=== PATIENT | female | born 1950 | race Caucasian/White ===

== ENCOUNTER → 2017-12-10 18:34 | Outpatient (CLI) | payer BC, SELFPAY ==
--- NOTE | 2017-12-10 14:25 | LES_PTH ---
PATIENT: NICKIE TOMLINSON LOC: [facility] U#:[id number] AGE/SX: 74/F ROOM: RE12/10/[address]: Dr. Allen Dominguez MD : 1950 BED: DIS: SPEC #: [id number] RECD: 12/10/17 18:35 STATUS: TALI ARACELI #: [id number] OCTAVIO: 12/10/17 14:[address]: Allen Dominguez DEPT: SURGICAL PATHOLOGY RECD BY: Reed Engel ENTERED: 12/11/17 08:03 SP TYPE: Lesion OTHR DR: Out of Town Doctor Tissues: Skin of face, NOS Procedures: Special Stain Group I Surgery Specimen Level IV GMS Stain (control) HEADER OPERATION: Not noted PRE-OP DIAGNOSIS: Squamous cell CA TISSUE SUBMITTED: Lesion inside mouth, lower left cheek MICROSCOPIC DIAGNOSIS Lesion inside mouth, lower left cheek, biopsy: A piece of squamous mucosa with focal changes suggestive of squamous papilloma with acute and chronic inflammation. Focal superficial bacterial colonization. Special stain for fungi is positive for fungal organisms (yeast and pseudohyphae) in superficial keratin layers consistent with Cait species; matched control is appropriate. CARMEN:cristian 12/14/17 SJ:cristian 08/10/19 COMMENT Case has been reviewed in consultation with Dr. Luis who concurs with the above diagnosis. IDC:AM MICROSCOPIC DESCRIPTION Slides are reviewed. GROSS DESCRIPTION Received is one container labeled with the patient's name and not further designated. The specimen consists of a piece of mosqueda-white soft tissue measuring 0.3 x 0.3 x 0.1 cm. The specimen is totally submitted in one cassette. / CARMEN:cristian 12/11/17 TC:5 CPT: 89890, 09908
--- NOTE | 2017-12-10 14:25 | LES_PTH ---
PATIENT: NICKIE TOMLINSON LOC: [facility] U#:[id number] AGE/SX: 74/F ROOM: RE12/10/[address]: Dr. Allen Dominguez MD : 1950 BED: DIS: SPEC #: [id number] RECD: 12/10/17 18:35 STATUS: TALI ARACELI #: [id number] OCTAVIO: 12/10/17 14:[address]: Allen Dominguez DEPT: SURGICAL PATHOLOGY RECD BY: Reed Engel ENTERED: 12/11/17 08:03 SP TYPE: Lesion OTHR DR: Out of Town Doctor Tissues: Skin of face, NOS Procedures: Special Stain Group I Surgery Specimen Level IV GMS Stain (control) HEADER OPERATION: Not noted PRE-OP DIAGNOSIS: Squamous cell CA TISSUE SUBMITTED: Lesion inside mouth, lower left cheek MICROSCOPIC DIAGNOSIS Lesion inside mouth, lower leg cheek, biopsy: A piece of squamous mucosa with focal changes suggestive of squamous papilloma with acute and chronic inflammation. Focal superficial bacterial colonization. Special stain for fungi is positive for fungal organisms (yeast and pseudohyphae) in superficial keratin layers consistent with Cait species; matched control is appropriate. CARMEN:cristian 12/14/17 COMMENT Case has been reviewed in consultation with Dr. Luis who concurs with the above diagnosis. IDC:AM MICROSCOPIC DESCRIPTION Slides are reviewed. GROSS DESCRIPTION Received is one container labeled with the patient's name and not further designated. The specimen consists of a piece of mosqueda-white soft tissue measuring 0.3 x 0.3 x 0.1 cm. The specimen is totally submitted in one cassette. / CARMEN:cristian 12/11/17 TC:5 CPT: 86195, 22813
== END ==
PROVIDERS: Visit Provider Otolaryngology
DX: K12.1 Other forms of stomatitis (principal)
CPT/HCPCS: 88305; 88312

== ENCOUNTER → 2019-08-09 13:41 | Outpatient (CLI) | payer BC, SELFPAY ==
--- NOTE | 2019-08-09 10:07 | MASS_PTH ---
PATIENT: NICKIE TOMLINSON LOC: [facility] U#:[id number] AGE/SX: 74/F ROOM: RE08/09/[address]: Dr. 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 Acute and chronic inflammation. Negative for malignancy. Special stain for fungi is negative for organisms; matched control is appropriate. See comment. CARMEN:cristian 08/10/19 COMMENT The specimen entirely consists of superficial fragments of tissue. If there is high suspicion of malignancy, rebiopsy is suggested if clinically indicated. Please make reference to previous specimen ([id number]) lesion inside mouth, lower left cheek, biopsy with diagnosis of a piece of squamous mucosa with focal changes suggestive of squamous papilloma with acute and chronic inflammation. Case has been reviewed in consultation with Dr. Luis who concurs with the above diagnosis. IDC:AM MICROSCOPIC DESCRIPTION Slides are reviewed. GROSS DESCRIPTION Received is one container labeled with the patient's name and not further designated. The specimen consists of two irregular fragments of light mosqueda soft tissue that in aggregate measure 0.5 x 0.3 x 0.1 cm. The specimen is totally submitted in one cassette. / AM:cristian 08/09/19 TC: 5 CPT: 30115, 43197
== END ==
PROVIDERS: Referring Provider Otolaryngology; Visit Provider Otolaryngology
DX: Z85.819 Personal history of malignant neoplasm of unspecified site of lip, oral cavity, and pharynx (principal); Z92.3 Personal history of irradiation
CPT/HCPCS: 88305; 88312

== ENCOUNTER 2019-09-02 09:25 | Day surgery (SDC) | payer BC, SELFPAY ==
[2019-09-02] VITALS (9 sets, daily range): BP systolic 97–136; BP diastolic 60–85; PULSE 61–78; RESP 16; TEMP 36.6; O2SAT 93–99; BMI 36.3
--- NOTE | 2019-09-02 | LYMN_PTH ---
PATIENT: NICKIE TOMLINSON [place] [facility] [id number] AGE/SX: 68/F ROOM: RE09/02/[address]: Dr. Allen Dominguez MD : 1950 BED: DIS: 09/02/2019 SPEC #: [id number] RECD: 09/02/19 13:32 STATUS: TALI ARACELI #: [id number] OCTAVIO: 09/02/19 00:[address]: Allen Dominguez DEPT: SURGICAL PATHOLOGY RECD BY: Lexus Branch ENTERED: 09/02/19 13:59 SP TYPE: LYMPH NODE OTHR DR: Dr. Los Davenport MD Tissues: LYMPH NODE BIOPSY Procedures: Special Stain Group II Surgery Specimen Level IV Imprint (control) HEADER OPERATION: Radical neck biopsy/excision lymph node, open deep cervical nodes PRE-OP DIAGNOSIS: Cervical lymphadenopathy TISSUE SUBMITTED: Submental lymph node MICROSCOPIC DIAGNOSIS Submental lymph node, biopsy: Consistent with reactive lymph node. See comment. AM:cristian 09/13/19 COMMENT The specimen is evaluated at the time of touch prep by Dr. Luis. Immediate Evaluation = Polymorphous lymphocytes present. This touch prep evaluation of this case is discussed with Dr. Dominguez on 09/02/19 at 2:18 p.m. Immunohistochemistry ([id number]) supports the above diagnosis. Flow cytometric analysis shows significant immunophenotypic abnormality detected. The complete flow cytometry report can be viewed in patient's EMR. Reference is made to the patient's right tongue mass biopsy ([id number]) in which superficial fragments of squamous papilloma was identified. Case has been reviewed in consultation with Dr. Zuniga who concurs with the above diagnosis. IDC:SJ MICROSCOPIC DESCRIPTION Slides are reviewed. GROSS DESCRIPTION Received fresh for frozen section consultation labeled with the patient's name is a specimen designated submental lymph node. The specimen consists of a 6 mm mosqueda nodule. The specimen is bisected. One bisected half is submitted for flow cytometry analysis. The other half is submitted for permanent sections after district sales representative touch prep smears (four Diff-Quik stains and four pap stains). / AM:cristian 09/02/19 TC:5 CPT: 19166, 32573
--- NOTE | 2019-09-02 | IMM_PTH ---
PATIENT: NICKIE TOMLINSON LOC: [facility] [place] U#:[id number] AGE/SX: 68/F ROOM: RE09/02/[address]: Dr. Allen Dominguez MD : 1950 BED: DIS: 09/02/2019 SPEC #: [id number] RECD: 09/05/19 12:15 STATUS: TALI REQ #: [id number] OCTAVIO: 09/02/19 00:[address]: Allen Dominguez DEPT: IMMUNOHISTOCHEMISTRY RECD BY: Lexus Branch ENTERED: 09/05/19 12:18 SP TYPE: IMMUNO OTHR DR: Dr. Los Davenport MD Tissues: Lymph node of neck, NOS Procedures: BCL-2 (add) CD138 (add) CD15 (add) CD20 (add) CD3 (add) CD30 (add) CD43 (add) CD45 (add) CD5 (add) CD79A (add) KI-67 (add) Pankeratin (initial) PHYSICIAN & [address] [address] SPECIMEN INFORMATION: Tissue Source: Submental lymph node Clinical Info: Cervical lymphadenopathy Specimen Number: [id number] CPT code: 15293, 64664 x11 METHODOLOGY: Deparaffinized sections of prefer/formalin-fixed tissue or PAP/DQ stained slides are incubated with monoclonal/polyclonal antibodies/oligonucleotide probes. Localization is made via biotin free immunoperoxidase method. Appropriate controls are performed and reacted as expected. Results on target cell population are indicated in the following table: RESULTS: ANTIBODY / CLONE RESULT AE1-3 (AE1/AE3/PCK26) negative CD3 (PS1) positive CD5 (SP10) positive CD20 (L26) positive, zonal CD43 (L60) positive CD45 (RP2/18) positive CD79a (11E3) positive, zonal CD138 (B-A38) positive, focal CD15 (MMA) negative CD30 (Tres-H2) negative BCL-2 (bcl-2/100/D5) negative Ki-67 (30-9) positive, low These tests were developed and their performance characteristics determined by [facility]. They may not have been cleared or approved by the U.[place]. Food and Drug Administration. The FDA has determined that such clearance or approval is not necessary. The above immunohistochemical/dualISH markers are ordered and reviewed by the Pathologist. INTERPRETATION: Submental lymph node, biopsy: Consistent with reactive lymph node. No evidence of carcinoma. AM:cristian 09/06/19
[2019-09-02 10:25] LABS: Bedside Glucose 139 mg/dL (70-110)
[2019-09-02] MEDS: Lactated Ringers 1,000 ML 100 ML IV ×2 (10:38→14:14)
--- NOTE | 2019-09-02 13:35 | OP.PCM_ITS ---
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 This is been treated with previous resection and radiation therapy. She has had progressive chronic ulceration of the right floor of mouth however repeat biopsies showed benign papilloma. Subsequently she has developed an enlarged submental lymph node on that side and given her history and suspicious clinical findings biopsy for definitive evaluation of possible recurrent malignancy was advised and she was agreeable to proceed. The risks, alternatives, potential complications, and benefits were discussed at length and any questions answered to the patient and/or caregiver's satisfaction. Witnessed informed consent was obtained in the office, and the patient and/or caregiver was agreeable to proceed. Procedure went as follows: The patient was identified in preoperative holding and brought to the operating room, placed under monitored anesthesia. When appropriate anesthesia was obtained, the right submental neck was prepped and draped in usual sterile fashion. The planned incision site was then injected with 1% lidocaine with 100,000 epinephrine for a total of 1 mL. After allowing for vasoconstriction, a skin incision was then created with a 15 blade scalpel through the skin subcutaneous tissues and platysma over the palpably enlarged node. A firm round enlarged lymph node was then encountered which is approximately 0.5 x 0.5 cm in size but very round with disruption of the normal oblong architecture. This was dissected free of the surrounding tissue and was then sent for pathologic specimen. The wound was then closed deeply with interrupted 3-0 Vicryl sutures closing the space. An interrupted 5-0 M onocryl subcuticular stitch was then placed to close the skin. The patient was then returned to anesthesia, was revived and extubated without complication having tolerated the procedure well. Type of Anesthesia:: General Anesthesiologist: Allen Yates Special Medications: none Specimen's removed: right submental lymph node Drains: none Estimated Blood Loss (mL): 0 mL Fluids Replaced: 200 mL Grafts/Implants Used: none - Complications none - Admit VTE Documentation VTE Present on Admission: No VTE Mechan Device Prophylaxis: None VTE Pharm Prophylaxis ordered?: No Reason prophylaxis not ordered:: Procedure Not Indicated
--- NOTE | 2019-09-02 13:42 | DCINST_ITS ---
- Discharge Diagnoses Current Active Problems: Current Active and Chronic Problems (This Medical Record has been edited. Action required.) Adenopathy, cervical (Acute) History of cancer of floor of mouth (Chronic) You will use the following diet at home:: No restrictions Discharge Activity: Return to Normal Activity Call your doctor if your incision/area has: Increased Pain/ Swelling, Foul Smelling Discharge Call your doctor if you observe: Fever of 101 or Higher, Uncontrolled pain Allergies/Adverse Reactions: Allergies celery Allergy (Verified 08/31/19 14:08) Other GET MIGRAINE, EVEN FROM JUST SMELLING IT Medications to take at Discharge Levothyroxine [Synthroid] 88 mcg PO DAILY 08/31/19 Losartan Potassium [Cozaar] 25 mg PO DAILY 08/31/19 Pravastatin [Pravachol] 20 mg PO QHS 08/31/19 RX: Aspirin E.C. [Ecotrin] 81 mg PO DAILY@0800 08/31/19 RX: Biotin 1 mg PO DAILY 08/31/19 RX: Lansoprazole 15 mg PO DAILY 08/31/19 RX: Metformin HCl 1,000 mg PO BID 08/31/19 Sitagliptin Phosphate [Januvia] 50 mg PO DAILY 08/31/19 Primary Care Physician: Los Davenport MD [Primary Care Provider] - Test Results: Test results from this visit will be discussed in further detail at your follow- up appointment, if applicable. Please Follow Up With: Allen Dominguez MD When: 2 weeks
== END 2019-09-02 14:59 | disposition home or self-care (01) ==
LOC: SDC 09:26 → AC 09:29
PROVIDERS: PCP Family Medicine; Referring Provider Otolaryngology; Visit Provider Otolaryngology
PROC: 07T10ZZ Resection of Right Neck Lymphatic, Open Approach (ICD-10-PCS; CPT 38724; principal; 2019-09-02 11:00)
DX: R59.0 Localized enlarged lymph nodes (principal); T66.XXXA Radiation sickness, unspecified, initial encounter; K21.9 Gastro-esophageal reflux disease without esophagitis; E78.00 Pure hypercholesterolemia, unspecified; E11.9 Type 2 diabetes mellitus without complications; E06.9 Thyroiditis, unspecified; I10 Essential (primary) hypertension; Z92.3 Personal history of irradiation; Z79.82 Long term (current) use of aspirin; Z86.718 Personal history of other venous thrombosis and embolism; Z85.818 Personal history of malignant neoplasm of other sites of lip, oral cavity, and pharynx; Z79.84 Long term (current) use of oral hypoglycemic drugs; Z79.899 Other long term (current) drug therapy; Z87.891 Personal history of nicotine dependence
CPT/HCPCS: 38500; 82962; 88305; 88313; 88341; 88342; J7120; J2405

== ENCOUNTER 2023-07-28 17:48 | Emergency (ER) | payer MEDICARE, SELFPAY ==
[2023-07-28 17:50] VITALS: BP 167/87; PULSE 78; RESP 16; TEMP 36.6; O2SAT 95
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
--- OUTSIDE RECORDS SUMMARY | 2023-07-28 19:15 | XMS RPT_ITS | CCD ---
Author Name Unknown Address [address] [place] [address] Organization [facility] Care Team Providers Care Nursing Unit Clerk Name Role Phone Los Davenport MD Primary Care Provider Kira RN, Mary Unavailable Unavailable Los Davenport MD Unavailable Lev Valle MD Unavailable William Alcaraz MD Unavailable Kamar RN, Carie Unavailable Los Davenport MD Primary Care Provider Los Davenport MD Unavailable Lev Valle MD Unavailable William Alcaraz MD Unavailable Kamar RN, Carie Unavailable Los Davenport MD Primary Care Provider Los Davenport MD Unavailable Kamar RN, Carie Unavailable Los Davenport MD Primary Care Provider Los Davenport MD Unavailable Lev Valle MD Unavailable William Alcaraz MD Unavailable Kamar ARORA, Carie Unavailable Kamar ARORA, Carie Unavailable LOS DAVENPORT Referring Unavailable LOS DAVENPORT Primary Care Unavailable LOS DAVENPORT Primary Care Unavailable LEV VALLE Attending Unavailable LOS DAVENPORT Primary Care Unavailable LOS DAVENPORT Attending Unavailable LOS DAVENPORT Referring Unavailable LOS DAVENPORT Primary Care Unavailable TESTGILES WEBB Referring Unavailable JANENE, LOS Escobar Primary Care Unavailable TESTRASUGEY, GILES Referring Unavailable JANENE, LOS Escobar Primary Care Unavailable TESTJON, GILES Attending Unavailable TESTRASUGEY, GILES Referring Unavailable JANENE, LOS Escobar Primary Care Unavailable JANENE, LOS Escobar Primary Care Unavailable JANENE, LOS Escobar Attending Unavailable LOS DAVENPORT Primary Care Unavailable SCHALEV DENNY Attending Unavailable SCHALEV DENNY Referring Unavailable JANENE, LOS Escobar Referring Unavailable JANENE, LOS Escobar Primary Care Unavailable JANENE, LOS Escobar Primary Care Unavailable JANENE, LOS Escobar Attending Unavailable JANENELOS Primary Care Unavailable JANENE, LOS Escobar Referring Unavailable JANENE, LOS Escobar Attending Unavailable JANENE, LOS Escobar Primary Care Unavailable Allergies Allergy Classification Reported Allergen(s) Allergy Type Date of Onset Reaction(s) Facility (20 sources) celery allergenic extract; Translations: [CELERY] Drug Allergy 09-02-2010 Other: See Comments [facility] (20 sources) Lisinopril; Translations: [LISINOPRIL] Drug Allergy 12-27-2014 Cough [facility] Work Phone: Medications Current Medications Medication Drug Class(es) Dates Sig (Normalized) Sig (Original) levothyroxine sodium 0.1 mg oral tablet (20 sources) l-Thyroxine Start: 07-02-2023 End: 07-01-2024 take 1 tablet by mouth once daily for thyroid dysfunction levothyroxine (LEVOXYL) 100 mcg tablet Indications: Hypothyroidism, unspecified type Take 1 tablet by mouth once daily. Take on empty stomach. For Thyroid 30 tablet 11 07/02/2023 07/01/2024 Active Completed/Discontinued Medications Medication Drug Class(es) Dates Sig (Normalized) Sig (Original) B6/folic/B12/coffee /phosphatid (NEURIVA PLUS ORAL) (20 sources) Start: 06-04-2021 take 1 tablet by mouth once daily B6/folic/B12/coffe e/phosphatid (NEURIVA PLUS ORAL) Take 1 tablet by mouth once daily. 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, face and neck; Translations: [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, face and neck] Onset: 01-17-2021 01-17-2021 Chronic Cancer of head and neck (20 sources) Malignant tumor of oral cavity ; Translations: [Malignant neoplasm of mouth, unspecified] Onset: 01-23-2021 01-29-2021 Chronic Chronic kidney disease (10 sources) Chronic kidney disease stage 3; Translations: [Stage 3 chronic kidney disease] Onset: 10-31-2020 01-29-2021 Chronic Chronic kidney disease (1 source) Chronic kidney disease; Translations: [Hypertensive kidney disease with stage 3 chronic kidney disease, unspecified whether stage 3a or 3b CKD (HCC)] Onset: 06-06-2021 Chronic ulcer of skin (3 sources) Ulcer of lower extremity; Translations: [Non-pressure chronic ulcer of unspecified part of right lower leg with fat layer exposed] Onset: 06-06-2021 06-06-2021 Chronic Diabetes mellitus with complications (20 sources) Type 2 diabetes mellitus; Translations: [Type 2 diabetes mellitus with diabetic chronic kidney disease] Onset: 06-24-2016 06-06-2021 Chronic Diabetes mellitus without complication (1 source) Diabetes mellitus without complication; Translations: [Type 2 diabetes mellitus with stage 3 chronic kidney disease, without long-term current use of insulin, unspecified whether stage 3a or 3b CKD (HCC)] Onset: 06-06-2021 Disorders of lipid metabolism (20 sources) Hyperlipidemia; Translations: [Hyperlipidemia, unspecified] Onset: 04-26-2012 05-23-2015 Chronic Esophageal disorders (20 sources) Gastroesophageal reflux disease; Translations: [Gastro-esophageal reflux disease without esophagitis] Onset: 06-04-2009 01-29-2021 Chronic Essential hypertension (20 sources) Essential hypertension; Translations: [Essential (primary) hypertension] Onset: 01-29-2021 01-29-2021 Chronic Hypertension with complications and secondary hypertension (20 sources) Chronic kidney disease stage 3 due to hypertension; Translations: [Hypertensive chronic kidney disease with stage 1 through stage 4 chronic kidney disease, or unspecified chronic kidney disease] Onset: 06-06-2021 06-06-2021 Chronic Nutritional deficiencies (3 sources) Deficiency of macronutrients; Translations: [Unspecified severe protein-calorie malnutrition] Onset: 01-23-2021 01-29-2021 Chronic Osteoarthritis (20 sources) Localized, primary osteoarthritis; Translations: [Unilateral primary osteoarthritis, unspecified knee] Onset: 04-09-2010 04-09-2010 Chronic Other circulatory disease (1 source) Abnormal peripheral pulse; Translations: [Other specified symptoms and signs involving the circulatory and respiratory systems] Episodic Other lower respiratory disease (2 sources) Cough; Translations: [Cough, unspecified type] Episodic Other nutritional; endocrine; and metabolic disorders (20 sources) Obese class I; Translations: [Obesity, unspecified] Onset: 01-23-2021 01-29-2021 Chronic Other screening for suspected conditions (not mental disorders or infectious disease) (1 source) Patient encounter status; Translations: [Encounter for screening mammogram for malignant neoplasm of breast] Episodic Other skin disorders (1 source) Callosity; Translations: [Corns and callosities] Episodic Residual codes; unclassified (19 sources) Desaturation of blood; Translations: [Idiopathic sleep related nonobstructive alveolar hypoventilation] Onset: 01-29-2021 01-29-2021 Chronic Secondary malignancies (20 sources) Metastasis to head and neck lymph node; Translations: [Secondary and unspecified malignant neoplasm of lymph nodes of head, face and neck] Onset: 06-14-2004 05-23-2010 Chronic Thyroid disorders (20 sources) Hypothyroidism; Translations: [Hypothyroidism, unspecified] Onset: 09-09-2006 Chronic Unclassified (17 sources) Disorder of rotator cuff; Translations: [Rotator cuff syndrome of left shoulder and allied disorders] Onset: 06-29-2015 06-29-2015 Viral infection (1 source) Disease caused by 2019-nCoV; Translations: [COVID-19] Episodic Past or Other Problems Problem Classification Problem Date Documented Da te Episodic/Chronic Cancer of head and neck (20 sources) History of malignant neoplasm of tongue; Translations: [Personal history of malignant neoplasm of tongue] Onset: 06-14-2004 01-17-2021 Episodic Other connective tissue disease (8 sources) Disorder of rotator cuff; Translations: [Rotator cuff syndrome of left shoulder and allied disorders] Onset: 06-29-2015 06-29-2015 Episodic Other gastrointestinal disorders (20 sources) Oropharyngeal dysphagia; Translations: [Dysphagia, oropharyngeal phase] Onset: 02-05-2021 02-05-2021 Episodic Other non-traumatic joint disorders (9 sources) Pain in unspecified knee; Translations: [Pain in joint, lower leg] Onset: 02-18-2011 02-18-2011 Episodic Other skin disorders (3 sources) Mass of neck; Translations: [Localized swelling, mass and lump, neck] Onset: 01-17-2021 01-17-2021 Episodic Urinary tract infections (2 sources) Acute cystitis; Translations: [Acute cystitis with hematuria] Onset: 09-30-2022 Episodic Results Test Name Value Interpretation Reference Range Facil ity Vital Signs Date Time Vital Sign Value Performing Clinician Faci lity 07-01-2023 16:03-0500 Body weight 84.37 kg Los Davenport MD Work Phone: [facility] 07-01-2023 16:03-0500 Diastolic blood pressure 82 mm[Hg] Los Davenport MD Work Phone: [facility] 07-01-2023 16:03-0500 Heart rate 84 /min Los Davenport MD Work Phone: [facility] 07-01-2023 16:03-0500 Systolic blood pressure 124 mm[Hg] Los Davenport MD Work Phone: [facility] 12-31-2022 10:15-0400 Body weight 84.82 kg Los Davenport MD Work Phone: [facility] 12-31-2022 10:15-0400 Diastolic blood pressure 74 mm[Hg] Los Davenport MD Work Phone: [facility] 12-31-2022 10:15-0400 Heart rate 93 /min Los Davenport MD Work Phone: [facility] 12-31-2022 10:15-0400 Systolic blood pressure 112 mm[Hg] Los Davenport MD Work Phone: [facility] 11-21-2022 08:40-0400 Body height 160 cm Los Davenport MD Work Phone: [facility] 11-21-2022 08:40-0400 Body temperature 98.71 [degF] Los Davenport MD Work Phone: [facility] 11-21-2022 08:40-0400 Body weight 83.92 kg Los Davenport MD Work Phone: [facility] 11-21-2022 08:40-0400 Diastolic blood pressure 76 mm[Hg] Los Davenport MD Work Phone: [facility] 11-21-2022 08:40-0400 Heart rate 90 /min Los Davenport MD Work Phone: [facility] 11-21-2022 08:40-0400 SaO2% (BldA) [Mass fraction] 97 % Los Davenport MD Work Phone: [facility] 11-21-2022 08:40-0400 Systolic blood pressure 122 mm[Hg] Los Davenport MD Work Phone: [facility] 08-04-2022 15:26-0500 Body height 160 cm Los Davenport MD Work Phone: [facility] 08-04-2022 15:26-0500 Body weight 86.18 kg Los Davenport MD Work Phone: [facility] 08-04-2022 15:26-0500 Diastolic blood pressure 68 mm[Hg] Los Davenport MD Work Phone: [facility] 08-04-2022 15:26-0500 Heart rate 90 /min Los Davenport MD Work Phone: [facility] 08-04-2022 15:26-0500 SaO2% (BldA) [Mass fraction] 98 % Los Davenport MD Work Phone: [facility] 08-04-2022 15:26-0500 Systolic blood pressure 114 mm[Hg] Los Davenport MD Work Phone: [facility] 06-18-2022 09:32-0500 Body weight 86.18 kg Los Davenport MD Work Phone: [facility] 06-18-2022 09:32-0500 Diastolic blood pressure 80 mm[Hg] Los Davenport MD Work Phone: [facility] 06-18-2022 09:32-0500 Heart rate 79 /min Los Davenport MD Work Phone: [facility] 06-18-2022 09:32-0500 Respiratory rate 20 /min Los Davenport MD Work Phone: [facility] 06-18-2022 09:32-0500 SaO2% (BldA) [Mass fraction] 96 % Los Davenport MD Work Phone: [facility] 06-18-2022 09:32-0500 Systolic blood pressure 138 mm[Hg] Los Davenport MD Work Phone: [facility] 12-09-2021 10:41-0400 Body weight 82.56 kg Los Davenport MD Work Phone: [facility] 12-09-2021 10:41-0400 Diastolic blood pressure 78 mm[Hg] Los Davenport MD Work Phone: [facility] 12-09-2021 10:41-0400 Heart rate 76 /min Los Davenport MD Work Phone: [facility] 12-09-2021 10:41-0400 Systolic blood pressure 134 mm[Hg] Los Davenport MD Work Phone: [facility] Encounters Encounter Date Encounter Type Care Provider Facility Start: 07-02-2023 Telephone encounter Los Davenport MD Work Phone: [facility] Procedures Date Procedure Procedure Detail Performing Clinician Start: 08-04-2022 Urnls dip stick/tabl et rgnt auto w/o microscopy Los Davenport MD Work Phone: Start: 12-09-2021 Adult depression screening assessment Los Davenport MD Work Phone: Start: 11-14-2020 Colonoscopy Los Mon MD Work Phone: Start: 08-06-2020 Mammography Los Mon MD Work Phone: Start: 02-19-2017 Adult depression screening assessment Los Davenport MD Work Phone: Start: 06-11-2010 H/O: artificial joint Knee chin nt replacement by other means Los Davenport MD Work Phone: History of radiation therapy History of radiation therapy Lev Valle MD Work Phone: Plan of Treatment Date Care Activity Detail Author Start: 11-14-2030 Colonoscopy COLONOSCOPY [facility] Start: 11-14-2030 COLORECTAL CANCER SCREENING COLORECTAL CANCER SCREENING [facility] Start: 07-23-2027 Urine microalbumin profile [facility] Start: 07-01-2024 Annual PCP Team [employer] suzanne Disease Visit Annual PCP Team Chronic Disease Visit [facility] Start: 06-23-2024 Hemoglobin/Hematocrit Hemoglobin/Hem atocrit [facility] Start: 06-23-2024 Hepatitis B screening Urine Al bumin:Creatinine Ratio [facility] Start: 06-23-2024 Hepatitis B surface antibody level LDL Cholesterol [facility] Start: 06-23-2024 Serum Creatinine Serum Creatinine Cl [facility] Start: 06-16-2024 Hepatitis C antibody , confirmatory test Dilated Retinal Exam [facility] Start: 01-24-2024 Influenza vaccination Influenza Vacc ine (#1) [facility] Immunizations Immunization Date Immunization Notes Care Provider Parker mock 06-16-2022 COVID-19 booster vac cine, age 12+ yr, bivalent (MODERNA) Los Davenport MD Work Phone: [facility] 10-24-2020 COVID-19 vaccine, fu ll dose (MODERNA) Los Davenport MD Work Phone: [facility] 09-26-2020 COVID-19 vaccine, fu ll dose (MODERNA) Los Davenport MD Work Phone: [facility] 07-02-2018 pneumococcal polysaccharide vaccine, 23 valent Los Davenport MD Work Phone: [facility] 07-02-2018 influenza virus vacc ine, unspecified formulation Los Davenport MD Work Phone: [facility] 07-23-2017 tetanus toxoid, redu adonay diphtheria toxoid, and acellular pertussis vaccine, adsorbed Los Davenport MD Work Phone: [facility] 10-08-2015 pneumococcal conjuga te vaccine, 13 valpeter Davenport MD Work Phone: [facility] 08-09-2012 pneumococcal polysaccharide vaccine, 23 valpeter Davenport MD Work Phone: [facility] 04-01-2007 tetanus and diphther ia toxoids, not adsorbed, for adult use Los Davenport MD Work Phone: [facility] Payers Date Payer Category Payer Medicare A[employer] MEDICARE A ETNA MEDICARE PPO [id number] 2021-Present [phone] [address] [place] [address] PPO [id number] 2021 Medicare AETNA MEDICARE A ETNA MEDICARE PPO [id number] 2021-Present [phone] [address] [place] [address] PPO [id number] 2021 Medicare [id number] Social History Date Type Detail Facility Start: [facility] End: 06-14-1988 History of tobacco use Current smoker [facility] End: 06-14-1988 History of tobacco use Cigarette Smoker [facility] Start: 08-26-2021 End: 07-01-2023 Alcohol intake Current non-drinker of alcohol (finding) [facility] Start: 1950 Sex Assigned At Not on file C [facility] Start: 11-22-2021 End: 03-17-2022 Exposure to SARS-CoV-2 (event) Not sure [facility] Start: 03-17-2022 End: 12-25-2022 Cigarettes smoked current (pack per day) - Reported 1 [facility] Work Phone: Start: 03-17-2022 Tobacco use and exposure Smokeless tobacco non-user [facility] Start: 12-25-2022 End: 12-31-2022 Tobacco use panel [facility] Work Phone: Adult Depression Screening Assessment 0 [facility] Work Phone: Medical Equipment Procedure Code Equipment Code Equipment Original Text Equipment Identifier Dates Dressing Bovine Collagen Glycosaminoglycan Polysiloxane 5x4in Biological - [id number] Start: 01-22-2021 Supervisor Capacitor Processing [place] 3.5m m Anastomosis Sterile Microvascular Disposable - [id number] Start: 01-22-2021 Plate Titanium 2 0mm Bone Jalen Reconstruction Mandible - [id number] Start: 01-22-2021 Screw Leibinger [place] 2 2mm Titanium 12mm Bone Lock Cross Pin Head - [id number] Start: 01-22-2021 Screw Leibinger [place] 2 2mm Titanium 6mm Bone Lock Cross Pin Head - [id number] Start: 01-22-2021 Tube Shiley 10.8 mm 6.4mm 6 76mm Tracheostomy Cuff Low Pressure Fenestrate - [id number] Start: 01-22-2021 Start: 12-05-2020 Clinical Notes 06-29-2015 to 07-02-2023 Telephone Encounter - Vera Wilson Ma - 07/02/2023 11:31 AM ESTTelephone Encounter - Los Davenport MD - 07/02/2023 9:21 AM Los Rodriguez MD - 07/01/2023 4:01 PM ESTPatient Instructions Note Date & Type Note Facility 07-02-2023 Miscellaneous Notes Pt notified of lab results and follow up Thyroid is a little low. Change levoxyl to 100 mcg a day . Recheck tsh in six weeks. documented in this encounter [facility] 07-01-2023 Note HNO ID: [id number] Author: [place], Los J, MD Service: ? Author Type: Physician Type: Progress Notes Filed: 07/01/2023 4:41 PM Note Text: Patient presents with: 6 Month Exam HPI: Patient presents today for office visit for follow up. DM: Reports overall feeling well. Medication side effects: No. Home sugar check frequency/results:once daily Hypoglycemic spells: No. Watching diet: Yes. Unexpected weight loss: No. Polyuria, polydipsia: No. Vision Changes: No. Foot lesions or numbness or pain: No. BP is ok. No chest pain No shortness of breath. Heartburn is doing well. Has followed closely with ENT. Was to follow up in two to three weeks if her tongue sore had not healed. But it is healed up now. Thyroid is stable. Component Latest Ref Rng AND Units 06/23/2023 WBC 3.70 - 11.00 k/uL 5.30 RBC 3.90 - 5.20 m/uL 4.86 Hemoglobin 11.5 - 15.5 g/dL 14.0 Hematocrit 36.0 - 46.0 % 43.2 MCV 80.0 - 100.0 fL 88.9 MCH 26.0 - 34.0 pg 28.8 MCHC 30.5 - 36.0 g/dL 32.4 RDW-CV 11.5 - 15.0 % 13.0 Platelet Count 150 - 400 k/uL 216 MPV 9.0 - 12.7 fL 10.5 Neut% % 44.8 Abs Neut (ANC) 1.45 - 7.50 k/uL 2.38 Lymph% % 28.9 Abs Lymph 1.00 - 4.00 k/uL 1.53 Galax% % 14.0 Abs Galax <0.87 k/uL 0.74 Eosin% % 11.3 Abs Eosin <0.46 k/uL 0.60 (H) Baso% % 0.8 Abs Baso <0.11 k/uL 0.04 Immature Gran % % 0.2 IMMATURE GRANS (ABS) <0.10 k/uL <0.03 NRBC /100 WBC 0.0 Absolute nRBC <0.01 k/uL <0.01 DTYPE Auto Protein, Total 6.3 - 8.0 g/dL 7.0 Albumin 3.9 - 4.9 g/dL 4.3 Calcium 8.5 - 10.2 mg/dL 9.7 Bilirubin, Total 0.2 - 1.3 mg/dL 0.2 Alkaline Phosphatase 34 - 123 U/L 74 AST 13 - 35 U/L 22 ALT 7 - 38 U/L 15 Glucose 74 - 99 mg/dL 157 (H) BUN 7 - 21 mg/dL 20 Creatinine 0.58 - 0.96 mg/dL 1.15 (H) Sodium 136 - 144 mmol/L 140 Potassium 3.7 - 5.1 mmol/L 4.8 Chloride 97 - 105 mmol/L 99 CO2 22 - 30 mmol/L 30 Anion Gap 9 - 18 mmol/L 11 eGFR >=60 mL/min/1.73mA? 50 (L) Cholesterol, Total <200 mg/dL 162 Triglyceride <150 mg/dL 121 HDL Cholesterol >39 mg/dL 64 Non HDL Cholesterol <130 mg/dL 98 Fasting Time hrs 12 VLDL Cholesterol <30 mg/dL 24 TC:HDL Ratio <5.10 2.53 LDL Cholesterol <100 mg/dL 74 LDL:HDL Ratio <2.54 1.16 Creatinine, Ur Random (UCRR) 20.0 - 300.0 mg/dL 60.3 Albumin, Urine Random mg/L <12.0 Albumin/Creat Ratio <30 mg/g <20 Hemoglobin A1C 4.3 - 5.6 % 6.7 (H) Estimated Average Glucose mg/dL 146 See last hpi, copied and pasted: HTN: BP is stable. Tolerating medications. No chest pain or shortness of breath No dizziness or headaches No edema HLD: No myalgias. HYPOTHYROID: TSH level good. DM: A1c 7.0 stable on Metformin 500 mg twice a day and Linagliptin 5 mg once daily. Watches diet. Checking glucose daily. Has had a couple of lows but hadn't been eating when happened. GERD: States that reflux all the time. Buying OTC. Takes at night for best results. A lot of it depends on the food she eats. Increased stress with Man and heart issues. Cough improved with allergy med and mucinex max that she is using. Sees podiatry and ENT. Both are doing well. Is getting her bunion done. Renal function is stable. MEDICATIONS: Current Outpatient Medications Medication Sig levothyroxine (LEVOXYL) 88 mcg tablet Take 1 tablet by mouth once daily. Take on empty stomach. For Thyroid metFORMIN (GLUCOPHAGE) 500 mg tablet Take 1 tablet by mouth twice daily with meals. triamterene-hydroCHLOROthiazide (MAXZIDE) 75-50 mg per tablet Take 1 tablet by mouth once daily. losartan (COZAAR) 25 mg tablet Take 1 tablet by mouth once daily. pravastatin (PRAVACHOL) 20 mg tablet Take 1 tablet by mouth daily at bedtime. linaGLIPtin (TRADJENTA) 5 mg tab Take 1 tablet by mouth once daily. B6/folic/B12/coffee/phosphatid (NEURIVA PLUS ORAL) Take 1 tablet by mouth once daily. blood sugar diagnostic (BLOOD GLUCOSE TEST) test strip One Touch Test strips Test blood sugar(s) 1 times daily. Dx: E11.9 Insulin:No blood sugar diagnostic (ACCU-CHEK ADRIANA PLUS TEST STRP) test strip Test blood sugar(s) 1 times daily. Dx: E11.9. Insulin: No Lancets (ACCU-CHEK SOFTCLIX LANCETS) lancets Test blood sugar(s) 1 times daily. Dx: Type 2 DM - Controlled E11.9 Insulin: No lansoprazole (PREVACID) 15 mg capsule Take 1 capsule by mouth daily before breakfast. 1/2 hr before meal. Biotin 1 mg ORAL Tab Take 1 tablet by mouth once daily. benzonatate (TESSALON PERLES) 100 mg capsule Take 1 capsule by mouth three times daily as needed for cough. No current facility-administered medications for this visit. ALLERGIES: ALLERGIES Allergen Reactions Celery Other: See Comments Migraine Lisinopril Cough PAST MEDICAL HISTORY Diagnosis Date Diabetes mellitus, type 2 ([facility]) 2011 Diverticulosis of colon (without mention of hemorrhage) DVT (deep venous thrombosis) ([facility]) 2001 bilateral leg DVT during chemo/radiation GERD (gastroesophageal reflux disease) Hx ulcer (more content not included)... [facility] 07-01-2023 History of Present illness Narrative Patient presents with: 6 Month Exam HPI: Patient presents today for office visit for follow up. DM: Reports overall feeling well. Medication side effects: No. Home sugar check frequency/results:once daily Hypoglycemic spells: No. Watching diet: Yes. Unexpected weight loss: No. Polyuria, polydipsia: No. Vision Changes: No. Foot lesions or numbness or pain: No. BP is ok. No chest pain No shortness of breath. Heartburn is doing well. Has followed closely with ENT. Was to follow up in two to three weeks if her tongue sore had not healed. But it is healed up now. Thyroid is stable. Component Latest Ref Rng & Units 06/23/2023 WBC 3.70 - 11.00 k/uL 5.30 RBC 3.90 - 5.20 m/uL 4.86 Hemoglobin 11.5 - 15.5 g/dL 14.0 Hematocrit 36.0 - 46.0 % 43.2 MCV 80.0 - 100.0 fL 88.9 MCH 26.0 - 34.0 pg 28.8 MCHC 30.5 - 36.0 g/dL 32.4 RDW-CV 11.5 - 15.0 % 13.0 Platelet Count 150 - 400 k/uL 216 MPV 9.0 - 12.7 fL 10.5 Neut% % 44.8 Abs Neut (ANC) 1.45 - 7.50 k/uL 2.38 Lymph% % 28.9 Abs Lymph 1.00 - 4.00 k/uL 1.53 Galax% % 14.0 Abs [place] <0.87 k/uL 0.74 Eosin% % 11.3 Abs Eosin <0.46 k/uL 0.60 (H) Baso% % 0.8 Abs Baso <0.11 k/uL 0.04 Immature Gran % % 0.2 IMMATURE GRANS (ABS) <0.10 k/uL <0.03 NRBC /100 WBC 0.0 Absolute nRBC <0.01 k/uL <0.01 DTYPE Auto Protein, Total 6.3 - 8.0 g/dL 7.0 Albumin 3.9 - 4.9 g/dL 4.3 Calcium 8.5 - 10.2 mg/dL 9.7 Bilirubin, Total 0.2 - 1.3 mg/dL 0.2 Alkaline Phosphatase 34 - 123 U/L 74 AST 13 - 35 U/L 22 ALT 7 - 38 U/L 15 Glucose 74 - 99 mg/dL 157 (H) BUN 7 - 21 mg/dL 20 Creatinine 0.58 - 0.96 mg/dL 1.15 (H) Sodium 136 - 144 mmol/L 140 Potassium 3.7 - 5.1 mmol/L 4.8 Chloride 97 - 105 mmol/L 99 CO2 22 - 30 mmol/L 30 Anion Gap 9 - 18 mmol/L 11 eGFR >=60 mL/min/1.73m 50 (L) Cholesterol, Total <200 mg/dL 162 Triglyceride <150 mg/dL 121 HDL Cholesterol >39 mg/dL 64 Non HDL Cholesterol <130 mg/dL 98 Fasting Time hrs 12 VLDL Cholesterol <30 mg/dL 24 TC:HDL Ratio <5.10 2.53 LDL Cholesterol <100 mg/dL 74 LDL:HDL Ratio <2.54 1.16 Creatinine, Ur Random (UCRR) 20.0 - 300.0 mg/dL 60.3 Albumin, Urine Random mg/L <12.0 Albumin/Creat Ratio <30 mg/g <20 Hemoglobin A1C 4.3 - 5.6 % 6.7 (H) Estimated Average Glucose mg/dL 146 See last hpi, copied and pasted: HTN: BP is stable. Tolerating medications. No chest pain or shortness of breath No dizziness or headaches No edema HLD: No myalgias. HYPOTHYROID: TSH level good. DM: A1c 7.0 stable on Metformin 500 mg twice a day and Linagliptin 5 mg once daily. Watches diet. Checking glucose daily. Has had a couple of lows but hadn't been eating when happened. GERD: States that reflux all the time. Buying OTC. Takes at night for best results. A lot of it depends on the food she eats. Increased stress with Man and heart issues. Cough improved with allergy med and mucinex max that she is using. Sees podiatry and ENT. Both are doing well. Is getting her bunion done. Renal function is stable. MEDICATIONS: Current Outpatient Medications Medication Sig levothyroxine (LEVOXYL) 88 mcg tablet Take 1 tablet by mouth once daily. Take on empty stomach. For Thyroid metFORMIN (GLUCOPHAGE) 500 mg tablet Take 1 tablet by mouth twice daily with meals. triamterene-hydroCHLOROthiazide (MAXZIDE) 75-50 mg per tablet Take 1 tablet by mouth once daily. losartan (COZAAR) 25 mg tablet Take 1 tablet by mouth once daily. pravastatin (PRAVACHOL) 20 mg tablet Take 1 tablet by mouth daily at bedtime. linaGLIPtin (TRADJENTA) 5 mg tab Take 1 tablet by mouth once daily. B6/folic/B12/coffee/phosphatid (NEURIVA PLUS ORAL) Take 1 tablet by mouth once daily. blood sugar diagnostic (BLOOD GLUCOSE TEST) test strip One Touch Test strips Test blood sugar(s) 1 times daily. Dx: E11.9 Insulin:No blood sugar diagnostic (ACCU-CHEK ADRIANA PLUS TEST STRP) test strip Test blood sugar(s) 1 times daily. Dx: E11.9. Insulin: No Lancets (ACCU-CHEK SOFTCLIX LANCETS) lancets Test blood sugar(s) 1 times daily. Dx: Type 2 DM - Controlled E11.9 Insulin: No lansoprazole (PREVACID) 15 mg capsule Take 1 capsule by mouth daily before breakfast. 1/2 hr before meal. Biotin 1 mg ORAL Tab Take 1 tablet by mouth once daily. benzonatate (TESSALON PERLES) 100 mg capsule Take 1 capsule by mouth three times daily as needed for cough. No current facility-administered medications for this visit. 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, face, and neck 2002 PAST SURGICAL HISTORY Procedure Laterality Date COLONOSCOPY FLX DX W/COLLJ SPEC WHEN PFRMD 06/26/2009 repeat due 2019 JOINT REPLACEMENT HX PAST SURGICAL HISTORY OF 08/09/2001 Direct laryngoscopy with multiple right base of tongue biopsies PAST SURGICAL HISTORY OF 02/07/2002 Right complete cervical lymphadenectomy PAST SURGICAL HISTORY OF ~ hysterectomy, non-ca PAST SURGICAL HISTORY OF knee surgery left x 3 TOTAL KNEE REPLACEMENT 09/2010, 05/2010 left and right TRACHEOSTOMY PLANNED SEPARATE PROCEDURE 2020 VAGINAL HYSTERECTOMY FAMILY HISTORY Problem Relation Age of Onset Emphysema Father Hypertension Mother Cancer Paternal Aunt Squamous cell. multiple relatives. Arthritis Sister Social History Tobacco Use Smoking status: Former Packs/day: 1.00 Years: 20.00 Additional pack years: 0.00 Total pack years: 20.00 Types: Cigarettes Quit date: 06/14/1988 Years since quittin.0 Smokeless tobacco: Never Vaping Use Vaping Use: Never used Substance Use Topics Alcohol use: No Drug use: No Reviewed current medications, allergies, past medical history, surgical history, family history and social history today. REVIEW OF SYSTEMS All other reviewed and negative other than HPI. HEALTH MAINTENANCE: Reviewed health maintenance issues today and recommended the following in detail. RSV Vaccine(1 - 1-dose 60+ series) Never done VITALS: BP 124/82 Pulse 84 Wt 84.4 kg (186 lb) BMI 32.95 kg/m Last 4 Encounter Wt Readings: Date: Wt: 12/31/2022 84.8 kg (187 lb) 11/21/2022 83.9 kg (185 lb) 08/04/2022 86.2 kg (190 lb) 06/18/2022 86.2 kg (190 lb) PHYSICAL EXAMINATION: General appearance: Well appearing, alert, in no acute distress, well-hydrated, well nourished. Skin: Skin color, texture, turgor normal, no suspicious rashes or lesions Head: Normocephalic, no masses, lesions, tenderness or abnormalities Neck: Supple, no adenopathy; thyroid symmetric, normal size, no bruits Lungs: Lungs clear to auscultation. No wheezing, rhonchi, rales Heart: RRR without murmur, gallop, or rubs. No ectopy Abdomen: Normal abdominal exam, Abdomen soft, non-tender. Bowel sounds normal. No masses, organomegaly Extremities: No deformities, edema, skin discoloration, clubbing or cyanosis. Good capillary refill. Musculoskeletal: No joint swelling, deformity, or tenderness ASSESSMENT/PLAN: 1. Essential hypertension - ICD9: 401.9, ICD10: I10 (primary diagnosis) - Controlled - Continue current medications 2. Hypothyroidism, unspecified type - ICD9: 244.9, ICD10: E03.9 - LEVOTHYROXINE 88 MCG TABLET - TSH BLD 3. Hyperlipidemia with target LDL less than 100 - ICD9: 272.4, ICD10: E78.5 - PRAVASTATIN 20 MG TABLET 4. Hypertensive kidney disease with stage 3 chronic kidney disease, unspecified whether stage 3a or 3b CKD (HCC) - ICD9: 403.90, 585.3, ICD10: I12.9, N18.30 - Controlled - Continue current medications - BASIC METABOLIC PNL - VITAMIN D 25 HYDROXY 5. Type 2 diabetes mellitus with stage 3 chronic kidney disease, without long-term current use of insulin, unspecified whether stage 3a or 3b CKD (HCC) - ICD9: 250.40, 585.3, ICD10: E11.22, N18.30 - labs in six months. - TRADJENTA 5 MG TABLET - HGB A1C 6. 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 Cancer of oral cavity (HCC) - ICD9: 145.9, ICD10: C06.9 - stable. [place] documented in this encounter [facility] 06-13-2023 Note HNO ID: [id number] Author: Trudy King Service: ? Author Type: ? Type: Progress Notes Filed: 06/13/2023 2:46 PM Note Text: POPULATION HEALTH NAVIGATION OUTREACH Action/FYI Pt due for mammogram Flu shot [facility] 06/16/23 Called and spoke with pt Pt declined all scheduling States she gets [facility] outside of [facility] Patient Identified by Name and : YES, via phone Outreach Outcome/Action Spoke to patient / parent / legal guardian: Patient declined. Not interested in scheduling Did you use a PCP flex slot to schedule this appointment? N/A Reason for Outreach Care Gap or Scheduling/Wellness visits Payer: Payor: AET MEDICARE / Plan: [employer] MEDICARE PPO / Product Type: PPO / Care Gap Reviewed:: Breast Cancer screening Diabetic Eye Exam Flu Vaccine Reminder: Reminder note to check Health Maintenance for items below Health Maintenance items due: Hepatitis B Vaccine(1 of 3 - Risk 3-dose series) Never done RSV Vaccine(1 - 1-dose 60+ series) Never done Urine Albumin:Creatinine Ratio due on 12/11/2022 Influenza Vaccine(1) due on 03/27/2023 Dilated Retinal Exam due on 06/16/2023 LDL Cholesterol due on 06/17/2023 Navigation Signature: Trudy King June 13, 2023 2:43 PM [facility] 06-13-2023 History of Present illness Narrative POPULATION HEALTH NAVIGATION OUTREACH Action/FYI Pt due for mammogram Flu shot [facility] 06/16/23 Called and spoke with pt Pt declined all scheduling States she gets [facility] outside of [facility] Patient Identified by Name and : YES, via phone Outreach Outcome/Action Spoke to patient / parent / legal guardian: Patient declined. Not interested in scheduling Did you use a PCP flex slot to schedule this appointment? N/A Reason for Outreach Care Gap or Scheduling/Wellness visits Payer: Payor: [employer] MEDICARE / Plan: AETNA MEDICARE PPO / Product Type: PPO / Care Gap Reviewed:: Breast Cancer screening Diabetic Eye Exam Flu Vaccine Reminder: Reminder note to check Health Maintenance for items below Health Maintenance items due: Hepatitis B Vaccine(1 of 3 - Risk 3-dose series) Never done RSV Vaccine(1 - 1-dose 60+ series) Never done Urine Albumin:Creatinine Ratio due on 12/11/2022 Influenza Vaccine(1) due on 03/27/2023 Dilated Retinal Exam due on 06/16/2023 LDL Cholesterol due on 06/17/2023 Navigation Signature: Trudy King June 13, 2023 2:43 PM documented in this encounter [facility] 06-13-2023 Note Patient Outreach (NE TNAV) NICKIE TOMLINSON ([id number]) 1950 F Date Time Provider Department 06/13/23 TRUDY KING (KARIN) NETNA[facility] During your visit today, we recorded the following information about you: Trudy King 06/13/2023 2:46 PM Signed POPULATION HEALTH NAVIGATION OUTREACH Action/FYI Pt due for mammogram Flu shot [facility] 06/16/23 Called and spoke with pt Pt declined all scheduling States she gets [facility] outside of [facility] Patient Identified by Name and : YES, via phone Outreach Outcome/Action Spoke to patient / parent / legal guardian: Patient declined. Not interested in scheduling Did you use a PCP flex slot to schedule this appointment? N/A Reason for Outreach Care Gap or Scheduling/Wellness visits Payer: Payor: [employer] MEDICARE / Plan: [employer] MEDICARE PPO / Product Type: PPO / Care Gap Reviewed:: Breast Cancer screening Diabetic Eye Exam Flu Vaccine Reminder: Reminder note to check Health Maintenance for items below Health Maintenance items due: Hepatitis B Vaccine(1 of 3 - Risk 3-dose series) Never done RSV Vaccine(1 - 1-dose 60+ series) Never done Urine Albumin:Creatinine Ratio due on 12/11/2022 Influenza Vaccine(1) due on 03/27/2023 Dilated Retinal Exam due on 06/16/2023 LDL Cholesterol due on 06/17/2023 Navigation Signature: Trudy King June 13, 2023 2:43 PM Allergies As of Date: 06/13/2023 Noted Allergy Reaction CELERY 09/02/2010 14 - Other: See Comments Comments: Migraine LISINOPRIL 12/27/2014 3 - Cough Date Reviewed: 04/10/2023 Reviewed by: Sania Rodriguez MA - Fully Assessed Reason for Visit: Population Health Navigation Outreach [[id number]] Cmt: [employer] care gaps Prescriptions as of 06/13/2023 - levothyroxine (LEVOXYL) 88 mcg tablet Take 1 tablet by mouth once daily. Take on empty stomach. For Thyroid - metFORMIN (GLUCOPHAGE) 500 mg tablet Take 1 tablet by mouth twice daily with meals. - triamterene-hydroCHLOROthiazide (MAXZIDE) 75-50 mg per tablet Take 1 tablet by mouth once daily. - losartan (COZAAR) 25 mg tablet Take 1 tablet by mouth once daily. - benzonatate (TESSALON PERLES) 100 mg capsule Take 1 capsule by mouth three times daily as needed for cough. - pravastatin (PRAVACHOL) 20 mg tablet Take 1 tablet by mouth daily at bedtime. - linaGLIPtin (TRADJENTA) 5 mg tab Take 1 tablet by mouth once daily. - B6/folic/B12/coffee/phosphatid (NEURIVA PLUS ORAL) Take 1 tablet by mouth once daily. - pantoprazole (PROTONIX) 40 mg/20 mL oral liquid (Discontinued) Take 20 mL by mouth DAILY (6 AM). - blood sugar diagnostic (BLOOD GLUCOSE TEST) test strip One Touch Test strips Test blood sugar(s) 1 times daily. Dx: E11.9 Insulin:No - blood sugar diagnostic (ACCU-CHEK ADRIANA PLUS TEST STRP) test strip Test blood sugar(s) 1 times daily. Dx: E11.9. Insulin: No - Lancets (ACCU-CHEK SOFTCLIX LANCETS) lancets Test blood sugar(s) 1 times daily. Dx: Type 2 DM - Controlled E11.9 Insulin: No - lansoprazole (PREVACID) 15 mg capsule Take 1 capsule by mouth daily before breakfast. 1/2 hr before meal. - Biotin 1 mg ORAL Tab Take 1 tablet by mouth once daily. Problem List As Of Date 06/13/2023 Noted Resolved PERS HX OF TONGUE MALIGNANCY [Z85.810] 06/14/2004 Radiotherapy follow-up examination [Z09] 06/14/2004 02/19/2017 Chemotherapy follow-up examination [Z09] 06/14/2004 07/23/2017 Follow-up examination, following unspecified barrett*06/14/2004 10/08/2015 Malignant neoplasm of base of tongue (HCC) [C01]06/14/2004 06/06/2021 MALIG RAFAEL LYMPH-HEAD/NECK [C77.0] 06/14/2004 Hypothyroidism [E03.9] 09/09/2006 Essential hypertension [I10] GERD (gastroesophageal reflux disease) [K21.9] 06/04/2009 Primary Localized Osteoarthrosis, Lower Leg [M1*04/09/2010 Knee joint replacement by other means [Z96.659] 06/11/2010 Knee pain [M25.569] 02/18/2011 06/18/2022 Type II or unspecified type diabetes mellitus w*04/26/2012 06/29/2013 Hyperlipidemia with target LDL less than 100 [E*04/26/2012 Rotator cuff syndrome of left shoulder and orly*06/29/2015 Pain in left shoulder [M25.512] 06/29/2015 02/19/2017 Type 2 diabetes mellitus with stage 3 chronic k*06/24/2016 Stage 3 chronic kidney disease (HCC) [N18.30] 10/31/2020 06/18/2022 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/2021 Neck mass [R22.1] 01/17/2021 12/09/2021 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/23/2021 Obesity, Class I, BMI 30-34.9 [E66.9] 01/23/2021 Severe protein-calorie malnutrition (HCC) [E43] 01/23/2021 12/09/2021 Oxygen desaturation during sleep [G47.34] 01/29/2021 12/31/2022 Dysphagia, oropharyngeal [R13.12] 02/05/2021 Ulcer of right leg, with fat layer exposed (HCC*06/06/2021 12/09/2021 Hypertensive kidney disease with stage 3 chroni*06/06/2021 Encounter Status:Closed by TRUDY KING on 06/13/23 [facility] 05-28-2023 Note HNO ID: [id number] Author: Tung Carlin RN Service: ? Author Type: Registered Nurse Type: Progress Notes Filed: 05/28/2023 12:37 PM Note Text: ACM LISA RN Action/FYI: Medication Adherence review completed per request of payer for: Statin Use in Patients with Diabetes MEDICATION - metformin 500 mg tablet take one tablet by mouth twice daily with meals LAST FILL: 03/02/23 - 90 Day Supply REFILL DUE: 05/31/23 NO PROVIDER ACTION REQUIRED Patient identified by name and date of . Patient Attributed To: QAE Payer: Nehal ETIENNE Reason for review or outreach: Medication Adherence Medication Adherence Review Details: Statin use in person with Diabetes (SUPD) Summary / Findings: MEDICATION - metformin 500 mg tablet take one tablet by mouth twice daily with meals LAST FILL: 03/02/23 - 90 Day Supply REFILL DUE: 05/31/23 Action Taken: Data submitted to [employer] message to patient refill reminder Contact made with patient: No, Chart review only. [facility] 05-28-2023 Note Patient Outreach (SHELDON ROSA) NICKIE TOMLINSON ([id number]) 1950 F Date Time Provider Department 05/28/23 TUNG CARLIN During your visit today, we recorded the following information about you: Tung Carlin RN 05/28/2023 12:37 PM Signed ACM LISA RN Action/FYI: Medication Adherence review completed per request of payer for: Statin Use in Patients with Diabetes MEDICATION - metformin 500 mg tablet take one tablet by mouth twice daily with meals LAST FILL: 03/02/23 - 90 Day Supply REFILL DUE: 05/31/23 NO PROVIDER ACTION REQUIRED Patient identified by name and date of . Patient Attributed To: E Payer: Nehal ETIENNE Reason for review or outreach: Medication Adherence Medication Adherence Review Details: Statin use in person with Diabetes (SUPD) Summary / Findings: MEDICATION - metformin 500 mg tablet take one tablet by mouth twice daily with meals LAST FILL: 03/02/23 - 90 Day Supply REFILL DUE: 05/31/23 Action Taken: Data submitted to [employer] message to patient refill reminder Contact made with patient: No, Chart review only. Allergies As of Date: 05/28/2023 Noted Allergy Reaction CELERY 09/02/2010 14 - Other: See Comments Comments: Migraine LISINOPRIL 12/27/2014 3 - Cough Date Reviewed: 04/10/2023 Reviewed by: Sania Rodriguez MA - Fully Assessed Reason for Visit: ACM LISA RN [[id number]] Cmt: Medication Adherence review completed per request of payer Prescriptions as of 05/28/2023 - levothyroxine (LEVOXYL) 88 mcg tablet Take 1 tablet by mouth once daily. Take on empty stomach. For Thyroid - metFORMIN (GLUCOPHAGE) 500 mg tablet Take 1 tablet by mouth twice daily with meals. - triamterene-hydroCHLOROthiazide (MAXZIDE) 75-50 mg per tablet Take 1 tablet by mouth once daily. - losartan (COZAAR) 25 mg tablet Take 1 tablet by mouth once daily. - benzonatate (TESSALON PERLES) 100 mg capsule Take 1 capsule by mouth three times daily as needed for cough. - pravastatin (PRAVACHOL) 20 mg tablet Take 1 tablet by mouth daily at bedtime. - linaGLIPtin (TRADJENTA) 5 mg tab Take 1 tablet by mouth once daily. - B6/folic/B12/coffee/phosphatid (NEURIVA PLUS ORAL) Take 1 tablet by mouth once daily. - pantoprazole (PROTONIX) 40 mg/20 mL oral liquid (Discontinued) Take 20 mL by mouth DAILY (6 AM). - blood sugar diagnostic (BLOOD GLUCOSE TEST) test strip One Touch Test strips Test blood sugar(s) 1 times daily. Dx: E11.9 Insulin:No - blood sugar diagnostic (ACCU-CHEK ADRIANA PLUS TEST STRP) test strip Test blood sugar(s) 1 times daily. Dx: E11.9. Insulin: No - Lancets (ACCU-CHEK SOFTCLIX LANCETS) lancets Test blood sugar(s) 1 times daily. Dx: Type 2 DM - Controlled E11.9 Insulin: No - lansoprazole (PREVACID) 15 mg capsule Take 1 capsule by mouth daily before breakfast. 1/2 hr before meal. - Biotin 1 mg ORAL Tab Take 1 tablet by mouth once daily. Problem List As Of Date 05/28/2023 Noted Resolved PERS HX OF TONGUE MALIGNANCY [Z85.810] 06/14/2004 Radiotherapy follow-up examination [Z09] 06/14/2004 02/19/2017 Chemotherapy follow-up examination [Z09] 06/14/2004 07/23/2017 Follow-up examination, following unspecified barrett*06/14/2004 10/08/2015 Malignant neoplasm of base of tongue (HCC) [C01]06/14/2004 06/06/2021 MALIG RAFAEL LYMPH-HEAD/NECK [C77.0] 06/14/2004 Hypothyroidism [E03.9] 09/09/2006 Essential hypertension [I10] GERD (gastroesophageal reflux disease) [K21.9] 06/04/2009 Primary Localized Osteoarthrosis, Lower Leg [M1*04/09/2010 Knee joint replacement by other means [Z96.659] 06/11/2010 Knee pain [M25.569] 02/18/2011 06/18/2022 Type II or unspecified type diabetes mellitus w*04/26/2012 06/29/2013 Hyperlipidemia with target LDL less than 100 [E*04/26/2012 Rotator cuff syndrome of left shoulder and orly*06/29/2015 Pain in left shoulder [M25.512] 06/29/2015 02/19/2017 Type 2 diabetes mellitus with stage 3 chronic k*06/24/2016 Stage 3 chronic kidney disease (HCC) [N18.30] 10/31/2020 06/18/2022 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/2021 Neck mass [R22.1] 01/17/2021 12/09/2021 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/23/2021 Obesity, Class I, BMI 30-34.9 [E66.9] 01/23/2021 Severe protein-calorie malnutrition (HCC) [E43] 01/23/2021 12/09/2021 Oxygen desaturation during sleep [G47.34] 01/29/2021 12/31/2022 Dysphagia, oropharyngeal [R13.12] 02/05/2021 Ulcer of right leg, with fat layer exposed (HCC*06/06/2021 12/09/2021 Hypertensive kidney disease with stage 3 chroni*06/06/2021 Encounter Status:Closed by TUNG CARLIN on 05/28/23 [facility] 04-15-2023 Miscellaneous Notes Left message for patient advising she can refill early but insurance will not cover since she already has paid claim. Patient advised will have to pay out of pocket so may just want to do small amount as opposed to 90 days. Advised could call us back if confused on information but will need to call Latanya to let them know if she is willing to pay out of pocket for rx Jena Viera Ma Patient said she is leaving for vacation on Thursday and will run out of her Trajenta while on vacation. 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 Uses [facility] in [place]. Please advise if this can be done. [phone]. documented in this encounter [facility] 04-13-2023 Note HNO ID: [id number] Author: Lev Valle MD Service: ? Author Type: Physician Type: Progress Notes Filed: 04/13/2023 9:08 AM Note Text: dictated [facility] 04-02-2023 Note HNO ID: [id number] Author: Jacob Thomas Service: ? Author Type: ? Type: Progress Notes Filed: 04/02/2023 3:21 PM Note Text: POPULATION HEALTH NAVIGATION OUTREACH Action/04/02/23 Discuss/due [employer] care gaps: ~Screening Mammogram ~Flu vaccine ~Dilated Retinal Exam due 06/16/23 or after Outcome: ~Left message on voice mail and sent MyChart message. Patient Identified by Name and : NO Outreach Outcome/Action Unable to reach patient: Left message MyChart message sent Did you use a PCP flex slot to schedule this appointment? N/A Reason for Outreach Care Gap or Scheduling/Wellness visits Payer: Payor: [employer] MEDICARE / Plan: [employer] MEDICARE PPO / Product Type: PPO / Care Gap Reviewed:: Breast Cancer screening Diabetic Eye Exam Flu Vaccine Reminder: Reminder note to check Health Maintenance for items below Health Maintenance items due: COVID-19 VACCINE(6 - Moderna series) due on 10/14/2022 URINE ALBUMIN:CREATININE RATIO due on 12/11/2022 INFLUENZA(1) due on 03/27/2023 Navigation Signature: Jacob Joyce Population Health Navigator April 02, 2023 3:18 PM [facility] 04-02-2023 History of Present illness Narrative POPULATION HEALTH NAVIGATION OUTREACH Action/04/02/23 Discuss/due [employer] care gaps: ~Screening Mammogram ~Flu vaccine ~Dilated Retinal Exam due 06/16/23 or after Outcome: ~Left message on voice mail and sent MyChart message. Patient Identified by Name and : NO Outreach Outcome/Action Unable to reach patient: Left message MyChart message sent Did you use a PCP flex slot to schedule this appointment? N/A Reason for Outreach Care Gap or Scheduling/Wellness visits Payer: Payor: [employer] MEDICARE / Plan: [employer] MEDICARE PPO / Product Type: PPO / Care Gap Reviewed:: Breast Cancer screening Diabetic Eye Exam Flu Vaccine Reminder: Reminder note to check Health Maintenance for items below Health Maintenance items due: COVID-19 VACCINE(6 - Moderna series) due on 10/14/2022 URINE ALBUMIN:CREATININE RATIO due on 12/11/2022 INFLUENZA(1) due on 03/27/2023 Navigation Signature: Jacob Joyce Population Health Navigator April 02, 2023 3:18 PM documented in this encounter [facility] 04-02-2023 Note Patient Outreach (SHELDON TNAV) NICKIE TOMLINSON ([id number]) 1950 F Date Time Provider Department 04/02/23 JACOB JOYCE) SANTIAGO During your visit today, we recorded the following information about you: Jacob Thomas 04/02/2023 3:21 PM Signed POPULATION HEALTH NAVIGATION OUTREACH Action/FYI 04/02/23 Discuss/due [employer] care gaps: ~Screening Mammogram ~Flu vaccine ~Dilated Retinal Exam due 06/16/23 or after Outcome: ~Left message on voice mail and sent [employer] message. Patient Identified by Name and : NO Outreach Outcome/Action Unable to reach patient: Left message [employer] message sent Did you use a PCP flex slot to schedule this appointment? N/A Reason for Outreach Care Gap or Scheduling/Wellness visits Payer: Payor: [employer] MEDICARE / Plan: [employer] MEDICARE PPO / Product Type: PPO / Care Gap Reviewed:: Breast Cancer screening Diabetic Eye Exam Flu Vaccine Reminder: Reminder note to check Health Maintenance for items below Health Maintenance items due: COVID-19 VACCINE(6 - Moderna series) due on 10/14/2022 URINE ALBUMIN:CREATININE RATIO due on 12/11/2022 INFLUENZA(1) due on 03/27/2023 Navigation Signature: Jacob Joyce Population Health Navigator April 02, 2023 3:18 PM Allergies As of Date: 04/02/2023 Noted Allergy Reaction CELERY 09/02/2010 14 - Other: See Comments Comments: Migraine LISINOPRIL 12/27/2014 3 - Cough Date Reviewed: 12/31/2022 Reviewed by: Selina Mejia LPN - Fully Assessed Reason for Visit: Population Health Navigation Outreach [3910] Cmt: [employer] gaps Prescriptions as of 04/02/2023 - levothyroxine (LEVOXYL) 88 mcg tablet Take 1 tablet by mouth once daily. Take on empty stomach. For Thyroid - metFORMIN (GLUCOPHAGE) 500 mg tablet Take 1 tablet by mouth twice daily with meals. - triamterene-hydroCHLOROthiazide (MAXZIDE) 75-50 mg per tablet Take 1 tablet by mouth once daily. - losartan (COZAAR) 25 mg tablet Take 1 tablet by mouth once daily. - benzonatate (TESSALON PERLES) 100 mg capsule Take 1 capsule by mouth three times daily as needed for cough. - pravastatin (PRAVACHOL) 20 mg tablet Take 1 tablet by mouth daily at bedtime. - linaGLIPtin (TRADJENTA) 5 mg tab Take 1 tablet by mouth once daily. - B6/folic/B12/coffee/phosphatid (NEURIVA PLUS ORAL) Take 1 tablet by mouth once daily. - pantoprazole (PROTONIX) 40 mg/20 mL oral liquid (Discontinued) Take 20 mL by mouth DAILY (6 AM). - blood sugar diagnostic (BLOOD GLUCOSE TEST) test strip One Touch Test strips Test blood sugar(s) 1 times daily. Dx: E11.9 Insulin:No - blood sugar diagnostic (ACCU-CHEK ADRIANA PLUS TEST STRP) test strip Test blood sugar(s) 1 times daily. Dx: E11.9. Insulin: No - Lancets (ACCU-CHEK SOFTCLIX LANCETS) lancets Test blood sugar(s) 1 times daily. Dx: Type 2 DM - Controlled E11.9 Insulin: No - lansoprazole (PREVACID) 15 mg capsule Take 1 capsule by mouth daily before breakfast. 1/2 hr before meal. - Biotin 1 mg ORAL Tab Take 1 tablet by mouth once daily. Problem List As Of Date 04/02/2023 Noted Resolved PERS HX OF TONGUE MALIGNANCY [Z85.810] 06/14/2004 Radiotherapy follow-up examination [Z09] 06/14/2004 02/19/2017 Chemotherapy follow-up examination [Z09] 06/14/2004 07/23/2017 Follow-up examination, following unspecified abrrett*06/14/2004 10/08/2015 Malignant neoplasm of base of tongue (HCC) [C01]06/14/2004 06/06/2021 MALIG RAFAEL LYMPH-HEAD/NECK [C77.0] 06/14/2004 Hypothyroidism [E03.9] 09/09/2006 Essential hypertension [I10] GERD (gastroesophageal reflux disease) [K21.9] 06/04/2009 Primary Localized Osteoarthrosis, Lower Leg [M1*04/09/2010 Knee joint replacement by other means [Z96.659] 06/11/2010 Knee pain [M25.569] 02/18/2011 06/18/2022 Type II or unspecified type diabetes mellitus w*04/26/2012 06/29/2013 Hyperlipidemia with target LDL less than 100 [E*04/26/2012 Rotator cuff syndrome of left shoulder and orly*06/29/2015 Pain in left shoulder [M25.512] 06/29/2015 02/19/2017 Type 2 diabetes mellitus with stage 3 chronic k*06/24/2016 Stage 3 chronic kidney disease (HCC) [N18.30] 10/31/2020 06/18/2022 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/2021 Neck mass [R22.1] 01/17/2021 12/09/2021 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 Author Type: Physician Type: Progress Notes Filed: 12/31/2022 10:41 AM Note Text: No chief complaint on file. HPI: Patient presents today for office visit for follow up. HTN: BP is stable. Tolerating medications. No chest pain or shortness of breath No dizziness or headaches No edema HLD: No myalgias. HYPOTHYROID: TSH level good. DM: A1c 7.0 stable on Metformin 500 mg twice a day and Linagliptin 5 mg once daily. Watches diet. Checking glucose daily. Has had a couple of lows but hadn't been eating when happened. GERD: States that reflux all the time. Buying OTC. Takes at night for best results. A lot of it depends on the food she eats. Increased stress with Man and heart issues. Cough improved with allergy med and mucinex max that she is using. Sees podiatry and ENT. Both are doing well. Is getting her bunion done. Renal function is stable. Component Latest Ref Rng AND Units 12/26/2022 12/29/2022 WBC 3.70 - 11.00 k/uL 5.16 RBC 3.90 - 5.20 m/uL 4.80 Hemoglobin 11.5 - 15.5 g/dL 13.9 Hematocrit 36.0 - 46.0 % 42.3 MCV 80.0 - 100.0 fL 88.1 MCH 26.0 - 34.0 pg 29.0 MCHC 30.5 - 36.0 g/dL 32.9 RDW-CV 11.5 - 15.0 % 13.4 Platelet Count 150 - 400 k/uL 223 MPV 9.0 - 12.7 fL 10.0 Neut% % 48.2 Abs Neut (ANC) 1.45 - 7.50 k/uL 2.49 Lymph% % 24.0 Abs Lymph 1.00 - 4.00 k/uL 1.24 Galax% % 14.0 Abs Galax <0.87 k/uL 0.72 Eosin% % 12.8 Abs Eosin <0.46 k/uL 0.66 (H) Baso% % 0.8 Abs Baso <0.11 k/uL 0.04 Immature Gran % % 0.2 IMMATURE GRANS (ABS) <0.10 k/uL <0.03 NRBC /100 WBC 0.0 Absolute nRBC <0.01 k/uL <0.01 DTYPE Auto Glucose 74 - 99 mg/dL 194 (H) BUN 7 - 21 mg/dL 18 Creatinine 0.58 - 0.96 mg/dL 1.12 (H) Sodium 136 - 144 mmol/L 137 Potassium 3.7 - 5.1 mmol/L 4.0 Chloride 97 - 105 mmol/L 99 CO2 22 - 30 mmol/L 26 Anion Gap 9 - 18 mmol/L 12 Calcium 8.5 - 10.2 mg/dL 9.8 eGFR >=60 mL/min/1.73mA? 52 (L) Hemoglobin A1C 4.3 - 5.6 % 7.0 (H) Estimated Average Glucose mg/dL 154 Vitamin D 25 Hydroxy 31.0 - 80.0 ng/mL 34.6 MEDICATIONS: Current Outpatient Medications Medication Sig metFORMIN (GLUCOPHAGE) 500 mg tablet Take 1 tablet by mouth twice daily with meals. triamterene-hydroCHLOROthiazide (MAXZIDE) 75-50 mg per tablet Take 1 tablet by mouth once daily. losartan (COZAAR) 25 mg tablet Take 1 tablet by mouth once daily. benzonatate (TESSALON PERLES) 100 mg capsule Take 1 capsule by mouth three times daily as needed for cough. levothyroxine (LEVOXYL) 88 mcg tablet Take 1 tablet by mouth once daily. Take on empty stomach. For Thyroid pravastatin (PRAVACHOL) 20 mg tablet Take 1 tablet by mouth daily at bedtime. linaGLIPtin (TRADJENTA) 5 mg tab Take 1 tablet by mouth once daily. B6/folic/B12/coffee/phosphatid (NEURIVA PLUS ORAL) Take 1 tablet by mouth once daily. (Patient not taking: No sig reported) blood sugar diagnostic (BLOOD GLUCOSE TEST) test strip One Touch Test strips Test blood sugar(s) 1 times daily. Dx: E11.9 Insulin:No blood sugar diagnostic (ACCU-CHEK ADRIANA PLUS TEST STRP) test strip Test blood sugar(s) 1 times daily. Dx: E11.9. Insulin: No Lancets (ACCU-CHEK SOFTCLIX LANCETS) lancets Test blood sugar(s) 1 times daily. Dx: Type 2 DM - Controlled E11.9 Insulin: No lansoprazole (PREVACID) 15 mg capsule Take 1 capsule by mouth daily before breakfast. 1/2 hr before meal. Biotin 1 mg ORAL Tab Take 1 tablet by mouth once daily. No current facility-administered medications for this visit. 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, s/p resection, chemo, and radiation Secondary and unspecified malignant neoplasm of lymph nodes of head, face, and neck 2001 PAST SURGICAL HISTORY Procedure Laterality Date COLONOSCOPY FLX DX W/COLLJ SPEC WHEN PFRMD 06/26/2009 repeat due 2019 JOINT REPLACEMENT HX PAST SURGICAL HISTORY OF 08/09/2001 Direct laryngoscopy with multiple right base of tongue biopsies PAST SURGICAL HISTORY OF 02/07/2002 Right complete cervical lymphadenectomy PAST SURGICAL HISTORY OF ~ hysterectomy, non-ca PAST SURGICAL HISTORY OF knee surgery left x 3 TOTAL KNEE REPLACEMENT 09/2010, 05/2010 left and right TRACHEOSTOMY PLANNED SEPARATE PROCEDURE 2020 VAGINAL HYSTERECTOMY FAMILY HISTORY Problem Relation Age of Onset Emphysema Father Hypertension Mother Cancer Paternal Aunt Squamous cell. multiple relatives. Arthritis Sister Social History Tobac (more content not included)... [facility] 12-31-2022 History of Present illness Narrative No chief complaint on file. HPI: Patient presents today for office visit for follow up. HTN: BP is stable. Tolerating medications. No chest pain or shortness of breath No dizziness or headaches No edema HLD: No myalgias. HYPOTHYROID: TSH level good. DM: A1c 7.0 stable on Metformin 500 mg twice a day and Linagliptin 5 mg once daily. Watches diet. Checking glucose daily. Has had a couple of lows but hadn't been eating when happened. GERD: States that reflux all the time. Buying OTC. Takes at night for best results. A lot of it depends on the food she eats. Increased stress with Man and heart issues. Cough improved with allergy med and mucinex max that she is using. Sees podiatry and ENT. Both are doing well. Is getting her bunion done. Renal function is stable. Component Latest Ref Rng & Units 12/26/2022 12/29/2022 WBC 3.70 - 11.00 k/uL 5.16 RBC 3.90 - 5.20 m/uL 4.80 Hemoglobin 11.5 - 15.5 g/dL 13.9 Hematocrit 36.0 - 46.0 % 42.3 MCV 80.0 - 100.0 fL 88.1 MCH 26.0 - 34.0 pg 29.0 MCHC 30.5 - 36.0 g/dL 32.9 RDW-CV 11.5 - 15.0 % 13.4 Platelet Count 150 - 400 k/uL 223 MPV 9.0 - 12.7 fL 10.0 Neut% % 48.2 Abs Neut (ANC) 1.45 - 7.50 k/uL 2.49 Lymph% % 24.0 Abs Lymph 1.00 - 4.00 k/uL 1.24 Galax% % 14.0 Abs Galax <0.87 k/uL 0.72 Eosin% % 12.8 Abs Eosin <0.46 k/uL 0.66 (H) Baso% % 0.8 Abs Baso <0.11 k/uL 0.04 Immature Gran % % 0.2 IMMATURE GRANS (ABS) <0.10 k/uL <0.03 NRBC /100 WBC 0.0 Absolute nRBC <0.01 k/uL <0.01 DTYPE Auto Glucose 74 - 99 mg/dL 194 (H) BUN 7 - 21 mg/dL 18 Creatinine 0.58 - 0.96 mg/dL 1.12 (H) Sodium 136 - 144 mmol/L 137 Potassium 3.7 - 5.1 mmol/L 4.0 Chloride 97 - 105 mmol/L 99 CO2 22 - 30 mmol/L 26 Anion Gap 9 - 18 mmol/L 12 Calcium 8.5 - 10.2 mg/dL 9.8 eGFR >=60 mL/min/1.73m 52 (L) Hemoglobin A1C 4.3 - 5.6 % 7.0 (H) Estimated Average Glucose mg/dL 154 Vitamin D 25 Hydroxy 31.0 - 80.0 ng/mL 34.6 MEDICATIONS: Current Outpatient Medications Medication Sig metFORMIN (GLUCOPHAGE) 500 mg tablet Take 1 tablet by mouth twice daily with meals. triamterene-hydroCHLOROthiazide (MAXZIDE) 75-50 mg per tablet Take 1 tablet by mouth once daily. losartan (COZAAR) 25 mg tablet Take 1 tablet by mouth once daily. benzonatate (TESSALON PERLES) 100 mg capsule Take 1 capsule by mouth three times daily as needed for cough. levothyroxine (LEVOXYL) 88 mcg tablet Take 1 tablet by mouth once daily. Take on empty stomach. For Thyroid pravastatin (PRAVACHOL) 20 mg tablet Take 1 tablet by mouth daily at bedtime. linaGLIPtin (TRADJENTA) 5 mg tab Take 1 tablet by mouth once daily. B6/folic/B12/coffee/phosphatid (NEURIVA PLUS ORAL) Take 1 tablet by mouth once daily. (Patient not taking: No sig reported) blood sugar diagnostic (BLOOD GLUCOSE TEST) test strip One Touch Test strips Test blood sugar(s) 1 times daily. Dx: E11.9 Insulin:No blood sugar diagnostic (ACCU-CHEK ADRIANA PLUS TEST STRP) test strip Test blood sugar(s) 1 times daily. Dx: E11.9. Insulin: No Lancets (ACCU-CHEK SOFTCLIX LANCETS) lancets Test blood sugar(s) 1 times daily. Dx: Type 2 DM - Controlled E11.9 Insulin: No lansoprazole (PREVACID) 15 mg capsule Take 1 capsule by mouth daily before breakfast. 1/2 hr before meal. Biotin 1 mg ORAL Tab Take 1 tablet by mouth once daily. No current facility-administered medications for this visit. ALLERGIES: ALLERGIES Allergen Reactions Celery Other: See Comments Migraine Lisinopril Cough PAST MEDICAL HISTORY Diagnosis Date Diabetes mellitus, type 2 (HCC) 2011 Diverticulosis of colon (without mention of hemorrhage) DVT (deep venous thrombosis) (HCC) 2002 bilateral leg DVT during chemo/radiation GERD (gastroesophageal reflux disease) Hx ulcer Hypertension Hypothyroidism 2002 Malignant neoplasm of base of tongue (HCC) 2002 Osteoarthritis 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, s/p resection, chemo, and radiation Secondary and unspecified malignant neoplasm of lymph nodes of head, face, and neck 2002 PAST SURGICAL HISTORY Procedure Laterality Date COLONOSCOPY FLX DX W/COLLJ SPEC WHEN PFRMD 06/26/2009 repeat due 2019 JOINT REPLACEMENT HX PAST SURGICAL HISTORY OF 08/09/2001 Direct laryngoscopy with multiple right base of tongue biopsies PAST SURGICAL HISTORY OF 02/07/2002 Right complete cervical lymphadenectomy PAST SURGICAL HISTORY OF ~1980s hysterectomy, non-ca PAST SURGICAL HISTORY OF knee surgery left x 3 TOTAL KNEE REPLACEMENT 09/2010, 05/2010 left and right TRACHEOSTOMY PLANNED SEPARATE PROCEDURE 2020 VAGINAL HYSTERECTOMY FAMILY HISTORY Problem Relation Age of Onset Emphysema Father Hypertension Mother Cancer Paternal Aunt Squamous cell. multiple relatives. Arthritis Sister Social History Tobacco Use Smoking status: Former Packs/day: 1.00 Years: 20.00 Pack years: 20.00 Types: Cigarettes Quit date: 06/14/1988 Years since quittin.5 Smokeless tobacco: Never Vaping Use Vaping Use: Never used Substance Use Topics Alcohol use: No Drug use: No Reviewed current medications, allergies, past medical history, surgical history, family history and social history today. REVIEW OF SYSTEMS All other reviewed and negative other than HPI. HEALTH MAINTENANCE: Reviewed health maintenance issues today and recommended the following in detail. SHINGRIX VACCINE(1 of 2) Never done MAMMOGRAM due on 08/06/2021 Declines because of terrible bruisng after last mammo Saw eye dr in last year. VITALS: BP 112/74 Pulse 93 Wt 84.8 kg (187 lb) BMI 33.13 kg/m Last 4 Encounter Wt Readings: Date: Wt: 11/21/2022 83.9 kg (185 lb) 08/04/2022 86.2 kg (190 lb) 06/18/2022 86.2 kg (190 lb) 12/09/2021 82.6 kg (182 lb) PHYSICAL EXAMINATION: General appearance: Well appearing, alert, in no acute distress, well-hydrated, well nourished. Skin: Skin color, texture, turgor normal, no suspicious rashes or lesions Head: Normocephalic, no masses, lesions, tenderness or abnormalities Eyes: Anicteric sclera. Pupils are equally round and reactive to light. Extraocular movements are intact. Neck: Supple, no adenopathy; thyroid symmetric, normal size, no bruits, no changes. Lungs: Lungs clear to auscultation. No wheezing, rhonchi, rales Heart: RRR without murmur, gallop, or rubs. No ectopy Abdomen: Normal abdominal exam, Abdomen soft, non-tender. Bowel sounds normal. No masses, organomegaly Extremities: No deformities, edema, skin discoloration, clubbing or cyanosis. Good capillary refill. Musculoskeletal: No joint swelling, deformity, or tenderness Peripheral pulses: Normal Neuro: Negative. ASSESSMENT/PLAN: 1. Hyperlipidemia with target LDL less than 100 - ICD9: 272.4, ICD10: E78.5 (primary diagnosis) - Controlled - Continue current medications 2. Hypothyroidism, unspecified type - ICD9: 244.9, ICD10: E03.9 - follow labs. - LEVOTHYROXINE 88 MCG TABLET 3. Type 2 diabetes mellitus with stage 3 chronic kidney disease, without long-term current use of insulin, unspecified whether stage 3a or 3b CKD (HCC) - ICD9: 250.40, 585.3, ICD10: E11.22, N18.30 - Controlled - ALBUMIN/CREAT RATIO RND UR - HGB A1C - CBC + DIFF - COMP METABOLIC PANEL - LIPID PANEL BASIC 4. Hypertensive kidney disease with stage 3 chronic kidney disease, unspecified whether stage 3a or 3b CKD (HCC) - ICD9: 403.90, 585.3, ICD10: I12.9, N18.30 - follow labs. 5. Cancer of oral cavity (HCC) - ICD9: 145.9, ICD10: C06.9 - per ent. Doing well. 6. Gastroesophageal reflux disease, unspecified whether esophagitis present - ICD9: 530.81, ICD10: K21.9 - stable 7. 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 Los Davenport MD documented in this encounter [facility] 12-26-2022 Note HNO ID: [id number] Author: So Arnold, RT(R) Service: ? Author Type: Technologist Type: Progress Notes Filed: 12/26/2022 12:17 PM Note Text: Radiology Service Progress Note PATIENT NAME: Nickie Tomlinson DATE OF SERVICE: December 26, 2022 TIME: 12:17 PM PATIENT IDENTITY VERIFICATION COMPLETED USING TWO (2) IDENTIFIERS: Name and Date of confirmed by patient verbally. FALL SCREENING: Has the patient had 2 falls in the last year or 1 fall with injury or currently using an Ambulatory Assistive Device (Walker, Cane, Wheelchair, Crutches, etc.)? No PATIENT GENDER DATA: Female. status: : No status: NO. PATIENT RELEVANT IMPLANT DATA REVIEWED: Not Applicable RADIOLOGY DEPARTMENT: General X-ray: Exam(s) Completed: Lower Extremity X-Ray(s): Feet, Bilateral and Wt. Bearing PERIPHERAL IV DATA: Not applicable SIGNED BY: So Arnold, RT(R) December 26, 2022 12:17 PM [facility] 12-26-2022 Note HNO ID: [id number] Author: Giles Luna Service: ? Author Type: Physician Type: Progress Notes Filed: 12/26/2022 12:22 PM Note Text: Initial Office Visit Subjective: This 72 year old female presents to clinic for diabetic foot check. Patient has the following complaints: painful bunions of both feet Patient presents to clinic with complaint of painful bunion of b/l feet. She states that her great toes deviate leading to rubbing on the 2nd toe. She has pain and she is here to discuss options for the bunion. Patient admits to being diabetic for 2 years now. Patient +B/T/N in feet at this time. Patient -pain in legs when walking. No other pedal complaints at this time. No change in medications or medical history since last visit. PAIN EVALUATION 12/26/2022 1059 Pain Level: 4 states it depends on the shoes she wears Pain Location: Foot-Right First 2 toes Description: Stabbing Duration Amount of Time: 2 Duration Units: Years Frequency: Intermittent Intervention/Comfort measure: Other: See comment States she does nothing for it Hemoglobin A1C (%) Date Value 06/17/2022 6.8 06/17/2021 6.2 10/29/2020 6.8 07/25/2020 7.1 06/17/2019 7.5 02/25/2019 7.9 PCP: Los Davenport MD PAST MEDICAL HISTORY Diagnosis Date Diabetes mellitus, type 2 (HCC) 2011 Diverticulosis of colon (without mention of hemorrhage) DVT (deep venous thrombosis) (HCC) 2001 bilateral leg DVT during chemo/radiation GERD (gastroesophageal reflux disease) Hx ulcer Hypertension Hypothyroidism 2002 Malignant neoplasm of base of tongue (HCC) 2002 Osteoarthritis 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, s/p resection, chemo, 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 triamterene-hydroCHLOROthiazide (MAXZIDE) 75-50 mg per tablet Take 1 tablet by mouth once daily. losartan (COZAAR) 25 mg tablet Take 1 tablet by mouth once daily. benzonatate (TESSALON PERLES) 100 mg capsule Take 1 capsule by mouth three times daily as needed for cough. levothyroxine (LEVOXYL) 88 mcg tablet Take 1 tablet by mouth once daily. Take on empty stomach. For Thyroid pravastatin (PRAVACHOL) 20 mg tablet Take 1 tablet by mouth daily at bedtime. linaGLIPtin (TRADJENTA) 5 mg tab Take 1 tablet by mouth once daily. blood sugar diagnostic (BLOOD GLUCOSE TEST) test strip One Touch Test strips Test blood sugar(s) 1 times daily. Dx: E11.9 Insulin:No blood sugar diagnostic (ACCU-CHEK ADRIANA PLUS TEST STRP) test strip Test blood sugar(s) 1 times daily. Dx: E11.9. Insulin: No Lancets (ACCU-CHEK SOFTCLIX LANCETS) lancets Test blood sugar(s) 1 times daily. Dx: Type 2 DM - Controlled E11.9 Insulin: No lansoprazole (PREVACID) 15 mg capsule Take 1 capsule by mouth daily before breakfast. 1/2 hr before meal. Biotin 1 mg ORAL Tab Take 1 tablet by mouth once daily. B6/folic/B12/coffee/phosphatid (NEURIVA PLUS ORAL) Take 1 tablet by mouth once daily. (Patient not taking: No sig reported) No current facility-administered medications for this visit. ALLERGIES Allergen Reactions Celery Other: See Comments Migraine Lisinopril Cough PAST SURGICAL HISTORY Procedure Laterality Date COLONOSCOPY FLX DX W/COLLJ SPEC WHEN PFRMD 06/26/2009 repeat due 2019 JOINT REPLACEMENT HX PAST SURGICAL HISTORY OF 08/09/2001 Direct laryngoscopy with multiple right base of tongue biopsies PAST SURGICAL HISTORY OF 02/07/2002 Right complete cervical lymphadenectomy PAST SURGICAL HISTORY OF ~ hysterectomy, non-ca PAST SURGICAL HISTORY OF knee surgery left x 3 TOTAL KNEE REPLACEMENT 09/2010, 05/2010 left and right TRACHEOSTOMY PLANNED SEPARATE PROCEDURE 2020 VAGINAL HYSTERECTOMY FAMILY HISTORY Problem Relation Age of Onset Emphysema Father Hypertension Mother Cancer Paternal Aunt Squamous cell. multiple relatives. Arthritis Sister Social History Tobacco Use Smoking status: Former Packs/day: 1.00 Years: 20.00 Pack years: 20.00 Types: Cigarettes Quit date: 06/14/1988 Years since quittin.5 Smokeless tobacco: Never Vaping Use Vaping Use: Never used Substance Use Topics Alcohol use: No Drug use: No REVIEW OF SYSTEMS GENERAL: Negative for Malaise, significant weight loss, fever RESPIRATORY: Negative for cough, wheezing and shortness of breath CARDIOVASCULAR: Negative for chest pain, leg swelling and palpitations GI: Negative for abdominal discomfort, blood in stools or black stools and change in bowel habits : Negative for dysuria, frequency and incontinence MUSCULOSKELETAL: Negative for joint pain or swelling, back pain, and muscle pain. SKIN: Negative for lesions, rash, and itching. HEMATOLOGY/LYMPHOLOGY Negative for prolonged bleeding, bruising easily, and sw (more content not included)... [facility] 12-26-2022 Note HNO ID: [id number] Author: Nohemi Escudero MA Service: ? Author Type: Automotive Upholsterer Type: Progress Notes Filed: 12/26/2022 12:22 PM Note Text: AMB ROOMING INTAKE FLOWSHEET DATA Pain Pain Level: 4 (states it depends on the shoes she wears) Pain Location: Foot-Right (First 2 toes) Description: Stabbing Duration Amount of Time: 2 Duration Units: Years Frequency: Intermittent Intervention/Comfort measure: Other: See comment (States she does nothing for it) Patient presents with bunions on B/L feet. States right foot is worse than her left. States first two toes on right foot are painful. She said the pain also depends on the shoes she wears. [facility] 12-26-2022 Instructions Giles Cheryl - 12/26/2022 11:24 AM EDT Diabetes Foot Care Instructions When you have diabetes, proper foot care is very important. Poor foot care may lead to amputation of a foot or leg. As a person with diabetes, you are more vulnerable to foot problems, because diabetes can damage your nerves and reduce blood flow to your feet. Here are some diabetes foot care tips to follow: Wash and Dry Your Feet Daily Use mild soaps Use warm water Pat your skin dry; do not rub. Thoroughly dry your feet. After washing, use lotion on your feet to prevent cracking. Do not put lotion between your toes. Examine Your Feet Each Day Check the tops and bottoms of your feet. Have someone else look at your feet if you cannot see them. Check for dry, cracked skin. Look for blisters, cuts, scratches, or other sores. Check for redness, increased warmth, or tenderness when touching any area of your feet. Check for ingrown toenails, corns, and calluses. If you get a blister or sore from your shoes, do not pop it. Apply a bandage and wear a different pair of shoes. Take Care of Your Toenails Cut toenails after bathing, when they are soft. Cut toenails straight across and smooth with a nail file. Avoid cutting into the corners of toes. Do not cut cuticles. If you have neuropathy (or decreased sensation in your feet) a pulp grinder feeder should always cut your toenails. Be Careful When Exercising Walk and exercise in comfortable shoes. Do not exercise when you have open sores on your feet. Protect Your Feet With Shoes and Socks Never go barefoot. Always protect your feet by wearing shoes or hard-soled slippers or footwear. Avoid shoes with high heels and pointed toes. Avoid shoes that expose your toes or heels (such as open-toed shoes or sandals). These types of shoes increase your risk for injury and potential infections. Try on new footwear with the type of socks you usually wear. Do not wear new shoes for more than an hour at a time. Change your socks daily. Look and feel inside your shoes before putting them on to make sure there are no foreign objects or rough areas. Avoid tight socks. Wear natural-fiber socks (cotton, wool, or a cotton-wool blend). Wear special shoes if your health care provider recommends them. Wear shoes/boots that will protect your feet from various weather conditions (cold, moisture, etc.). Make sure your shoes fit properly. If you have neuropathy (nerve damage), you may not notice that your shoes are too tight. Perform the footwear test described below. Footwear Test Use this simple test to see if your shoes fit correctly: Stand on a piece of paper. (Make sure you are standing and not sitting, because your foot changes shape when you stand.) Trace the outline of your foot. Trace the outline of your shoe. Compare the tracings: Is the shoe too narrow? Is your foot crammed into the shoe? The shoe should be at least 1/2 inch longer than your longest toe and as wide as your foot. Proper Shoe Choices The following types of shoes are best for people with diabetes Closed toes and heels Leather uppers without a seam inside At least 1/2 inch extra space at the end of your longest toe Inside of shoe should be soft with no rough areas Outer sole should be made of stiff material Shoes should be at least as wide as your feet Tips for Foot Care in Diabetes Don't wait to treat a minor foot problem if you have diabetes. Follow your health care provider's guidelines and first aid guidelines. Report foot injuries and infections to your health care provider immediately. Check water temperature with your elbow, not your foot. Do not use a heating pad on your feet. Do not cross your legs. Do not self-treat your corns, calluses, or other foot problems. Go to your health care provider or pulp grinder feeder to treat these conditions. documented in this encounter [facility] 12-26-2022 History of Present illness Narrative Images from the original note were not included. Initial Office Visit Subjective: This 72 year old female presents to clinic for diabetic foot check. Patient has the following complaints: painful bunions of both feet Patient presents to clinic with complaint of painful bunion of b/l feet. She states that her great toes deviate leading to rubbing on the 2nd toe. She has pain and she is here to discuss options for the bunion. Patient admits to being diabetic for 2 years now. Patient +B/T/N in feet at this time. Patient -pain in legs when walking. No other pedal complaints at this time. No change in medications or medical history since last visit. PAIN EVALUATION 12/26/2022 1059 Pain Level: 4 states it depends on the shoes she wears Pain Location: Foot-Right First 2 toes Description: Stabbing Duration Amount of Time: 2 Duration Units: Years Frequency: Intermittent Intervention/Comfort measure: Other: See comment States she does nothing for it Hemoglobin A1C (%) Date Value 06/17/2022 6.8 06/17/2021 6.2 10/29/2020 6.8 07/25/2020 7.1 06/17/2019 7.5 02/25/2019 7.9 PCP: Los Davenport MD PAST MEDICAL HISTORY Diagnosis Date Diabetes mellitus, type 2 (HCC) 2011 Diverticulosis of colon (without mention of hemorrhage) DVT (deep venous thrombosis) (HCC) 2001 bilateral leg DVT during chemo/radiation GERD (gastroesophageal reflux disease) Hx ulcer Hypertension Hypothyroidism 2001 Malignant neoplasm of base of tongue (HCC) 2001 Osteoarthritis Personal history of malignant 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 triamterene-hydroCHLOROthiazide (MAXZIDE) 75-50 mg per tablet Take 1 tablet by mouth once daily. losartan (COZAAR) 25 mg tablet Take 1 tablet by mouth once daily. benzonatate (TESSALON PERLES) 100 mg capsule Take 1 capsule by mouth three times daily as needed for cough. levothyroxine (LEVOXYL) 88 mcg tablet Take 1 tablet by mouth once daily. Take on empty stomach. For Thyroid pravastatin (PRAVACHOL) 20 mg tablet Take 1 tablet by mouth daily at bedtime. linaGLIPtin (TRADJENTA) 5 mg tab Take 1 tablet by mouth once daily. blood sugar diagnostic (BLOOD GLUCOSE TEST) test strip One Touch Test strips Test blood sugar(s) 1 times daily. Dx: E11.9 Insulin:No blood sugar diagnostic (ACCU-CHEK ADRIANA PLUS TEST STRP) test strip Test blood sugar(s) 1 times daily. Dx: E11.9. Insulin: No Lancets (ACCU-CHEK SOFTCLIX LANCETS) lancets Test blood sugar(s) 1 times daily. Dx: Type 2 DM - Controlled E11.9 Insulin: No lansoprazole (PREVACID) 15 mg capsule Take 1 capsule by mouth daily before breakfast. 1/2 hr before meal. Biotin 1 mg ORAL Tab Take 1 tablet by mouth once daily. B6/folic/B12/coffee/phosphatid (NEURIVA PLUS ORAL) Take 1 tablet by mouth once daily. (Patient not taking: No sig reported) No current facility-administered medications for this visit. ALLERGIES Allergen Reactions Celery Other: See Comments Migraine Lisinopril Cough PAST SURGICAL HISTORY Procedure Laterality Date COLONOSCOPY FLX DX W/COLLJ SPEC WHEN PFRMD 06/26/2009 repeat due 2019 JOINT REPLACEMENT HX PAST SURGICAL HISTORY OF 08/09/2001 Direct laryngoscopy with multiple right base of tongue biopsies PAST SURGICAL HISTORY OF 02/07/2002 Right complete cervical lymphadenectomy PAST SURGICAL HISTORY OF ~ hysterectomy, non-ca PAST SURGICAL HISTORY OF knee surgery left x 3 TOTAL KNEE REPLACEMENT 09/2010, 05/2010 left and right TRACHEOSTOMY PLANNED SEPARATE PROCEDURE 2020 VAGINAL HYSTERECTOMY FAMILY HISTORY Problem Relation Age of Onset Emphysema Father Hypertension Mother Cancer Paternal Aunt Squamous cell. multiple relatives. Arthritis Sister Social History Tobacco Use Smoking status: Former Packs/day: 1.00 Years: 20.00 Pack years: 20.00 Types: Cigarettes Quit date: 06/14/1988 Years since quittin.5 Smokeless tobacco: Never Vaping Use Vaping Use: Never used Substance Use Topics Alcohol use: No Drug use: No REVIEW OF SYSTEMS GENERAL: Negative for Malaise, significant weight loss, fever RESPIRATORY: Negative for cough, wheezing and shortness of breath CARDIOVASCULAR: Negative for chest pain, leg swelling and palpitations GI: Negative for abdominal discomfort, blood in stools or black stools and change in bowel habits : Negative for dysuria, frequency and incontinence MUSCULOSKELETAL: Negative for joint pain or swelling, back pain, and muscle pain. SKIN: Negative for lesions, rash, and itching. HEMATOLOGY/LYMPHOLOGY Negative for prolonged bleeding, bruising easily, and swollen nodes. ENDOCRINE: Negative for cold or heat intolerance, polyuria, polydipsia and goiter. NEURO: negative The remainder of the review of systems is noncontributory. Objective: Patient presents to clinic ambulating in [facility] Constitutional: Pt is a well developed 72 year old female who is alert, oriented, cooperative and in no apparent distress. Eyes: Following during examination. No redness or drainage. Respiratory: RR normal and nonlabored. Even breathing. No evidence of distress. Psychology: Patient is engaged during conversation. Normal affect and mood. Does not appear depressed or anxious. Vasc: DP and PT pulses are faint bilateral. CFT is less than 5 seconds bilateral. Skin temperature is warm to warm proximal to distal bilateral. There is no edema or varicosities noted. Hair growth decreased. Neuro: Protective sensation is intact to the foot and toes when tested with the 5.07 SWM bilateral. Vibratory sensation is intact at the hallux bilateral. -Significant neurological defecits. Derm: Inspection and palpation performed. Nails 1-5 b/l are normal in length but increased thickness. Skin is of normal turgor and texture. Hyperkeratosis noted to callus noted to b/l 1st metatarsal. NO ulcerations, scars, verruca or other lesions noted. Ortho: Ankle joint DF is full with the knee extended and full with knee flexed. No pain or crepitus noted. STJ, MTJ ROM are full and free of pain or crepitus. Muscle strength is 5/5 for dorsiflexors, plantarflexors, inverters, everters. Digital deformities include hallux valgus b/l. Hammertoe is noted to right 2nd toe. Assessment: (M20.12) Acquired hallux valgus of left foot (primary encounter diagnosis) (M20.11) Acquired hallux valgus of right foot (M20.41) Hammertoe of right foot (L84) Callus (E11.22, N18.30) Type 2 diabetes mellitus with stage 3 chronic kidney disease, without long-term current use of insulin, unspecified whether stage 3a or 3b CKD ([facility]) (R09.89) Diminished pulses in lower extremity Plan: 1. Patient was seen and evaluated. 2. Patient was instructed on the continued importance of diabetic foot care along with proper diet and keeping their blood sugar under control to prevent complications. Instructions given both oral and written. 3. Discussed bunion of b/l feet. Suspect arthritic bunion as there is pain with rom of b/l 1st mtpj and motion is decreased . Discussed options for bunion not limited to wider shoes, padding between the toes or diabetic shoes. Patient has elected to continue with wider shoes and has declined diabetic shoes. 4. Discussed surgical options. Lapiplasty is an option in patient who has no arthritic first mtpj. I will order xrays but if she were to proceed with surgery, I do think she will have some arthritis of the first mtpj so fusion of the first mtpj may be more suitable option. 5. Discussed hammertoe of right 2nd toe. Discussed surgical option by way of reconstruction vs amputation. Patient would pursue reconstruction 6 . Will check baseline pvr and vitamin d 7. Callus reduced with dremmel 8. Will call with results. Giles Luna DPM AMB ROOMING INTAKE FLOWSHEET DATA Pain Pain Level: 4 (states it depends on the shoes she wears) Pain Location: Foot-Right (First 2 toes) Description: Stabbing Duration Amount of Time: 2 Duration Units: Years Frequency: Intermittent Intervention/Comfort measure: Other: See comment (States she does nothing for it) Patient presents with bunions on B/L feet. States right foot is worse than her left. States first two toes on right foot are painful. She said the pain also depends on the shoes she wears. documented in this encounter [facility] 12-24-2022 Note Patient Outreach (IN [facility]) NICKIE TOMLINSON ([id number]) 1950 F Date Time Provider Department 12/24/22 LOS DAVENPORT During your visit today, we recorded the following information about you: Allergies As of Date: 12/24/2022 Noted Allergy Reaction CELERY 09/02/2010 14 - Other: See Comments Comments: Migraine LISINOPRIL 12/27/2014 3 - Cough Date Reviewed: 11/21/2022 Reviewed by: Lana Quintero - Fully Assessed Visit Diagnosis:Encounter for screening mammogram for breast cancer [Z12.31] Order(s):LAWRENCE SCREENING [[id number]] Order #: [id number] FUTURE Prescriptions as of 12/29/2022 - metFORMIN (GLUCOPHAGE) 500 mg tablet Take 1 tablet by mouth twice daily with meals. - triamterene-hydroCHLOROthiazide (MAXZIDE) 75-50 mg per tablet Take 1 tablet by mouth once daily. - losartan (COZAAR) 25 mg tablet Take 1 tablet by mouth once daily. - benzonatate (TESSALON PERLES) 100 mg capsule Take 1 capsule by mouth three times daily as needed for cough. - levothyroxine (LEVOXYL) 88 mcg tablet Take 1 tablet by mouth once daily. Take on empty stomach. For Thyroid - pravastatin (PRAVACHOL) 20 mg tablet Take 1 tablet by mouth daily at bedtime. - linaGLIPtin (TRADJENTA) 5 mg tab Take 1 tablet by mouth once daily. - B6/folic/B12/coffee/phosphatid (NEURIVA PLUS ORAL) Take 1 tablet by mouth once daily. - pantoprazole (PROTONIX) 40 mg/20 mL oral liquid (Discontinued) Take 20 mL by mouth DAILY (6 AM). - blood sugar diagnostic (BLOOD GLUCOSE TEST) test strip One Touch Test strips Test blood sugar(s) 1 times daily. Dx: E11.9 Insulin:No - blood sugar diagnostic (ACCU-CHEK ADRIANA PLUS TEST STRP) test strip Test blood sugar(s) 1 times daily. Dx: E11.9. Insulin: No - Lancets (ACCU-CHEK SOFTCLIX LANCETS) lancets Test blood sugar(s) 1 times daily. Dx: Type 2 DM - Controlled E11.9 Insulin: No - lansoprazole (PREVACID) 15 mg capsule Take 1 capsule by mouth daily before breakfast. 1/2 hr before meal. - Biotin 1 mg ORAL Tab Take 1 tablet by mouth once daily. Problem List As Of Date 12/24/2022 Noted Resolved PERS HX OF TONGUE MALIGNANCY [Z85.810] 06/14/2004 Radiotherapy follow-up examination [Z09] 06/14/2004 02/19/2017 Chemotherapy follow-up examination [Z09] 06/14/2004 07/23/2017 Follow-up examination, following unspecified barrett*06/14/2004 10/08/2015 Malignant neoplasm of base of tongue (HCC) [C01]06/14/2004 06/06/2021 MALIG RAFAEL LYMPH-HEAD/NECK [C77.0] 06/14/2004 Hypothyroidism [E03.9] 09/09/2006 Essential hypertension [I10] GERD (gastroesophageal reflux disease) [K21.9] 06/04/2009 Primary Localized Osteoarthrosis, Lower Leg [M1*04/09/2010 Knee joint replacement by other means [Z96.659] 06/11/2010 Knee pain [M25.569] 02/18/2011 06/18/2022 Type II or unspecified type diabetes mellitus w*04/26/2012 06/29/2013 Hyperlipidemia with target LDL less than 100 [E*04/26/2012 Rotator cuff syndrome of left shoulder and orly*06/29/2015 Pain in left shoulder [M25.512] 06/29/2015 02/19/2017 Type 2 diabetes mellitus with stage 3 chronic k*06/24/2016 Stage 3 chronic kidney disease (HCC) [N18.30] 10/31/2020 06/18/2022 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/2021 Neck mass [R22.1] 01/17/2021 12/09/2021 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/23/2021 Obesity, Class I, BMI 30-34.9 [E66.9] 01/23/2021 Severe protein-calorie malnutrition (HCC) [E43] 01/23/2021 12/09/2021 Oxygen desaturation during sleep [G47.34] 01/29/2021 Dysphagia, oropharyngeal [R13.12] 02/05/2021 Ulcer of right leg, with fat layer exposed (HCC*06/06/2021 12/09/2021 Hypertensive kidney disease with stage 3 chroni*06/06/2021 Encounter Status:Closed by [employer], PRODUSER on 12/29/22 [facility] 12-01-2022 Miscellaneous Notes ESTELLA 11/21/22 NOV 12/25/22 Crista Lind MA Patient has been identified by name and date of : Yes Requested Prescriptions Pending Prescriptions Disp Refills metFORMIN (GLUCOPHAGE) 500 mg tablet 180 tablet 3 Sig: Take 1 tablet by mouth twice daily with meals. triamterene-hydroCHLOROthiazide (MAXZIDE) 75-50 mg per tablet 90 tablet 3 Sig: Take 1 tablet by mouth once daily. losartan (COZAAR) 25 mg tablet 90 tablet 3 Sig: Take 1 tablet by mouth once daily. RX INSTRUCTIONS: Patient needs Metformin today. She is calling ahead for the other 2 since they are due beginning of December. Patient aware RX will be sent to pharmacy. No need to notify patient. Kellie Junior Pss documented in this encounter [facility] 11-22-2022 Instructions Los Davenport MD - 11/22/2022 11:45 AM EDT Images from the original note were not included. FACT SHEET FOR PATIENTS, PARENTS, AND CAREGIVERS EMERGENCY USE AUTHORIZATION (EUA) OF PAXLOVID FOR CORONAVIRUS DISEASE 2019 (COVID-19) You are being given this Fact Sheet because your healthcare provider believes it is necessary to provide you with PAXLOVID for the treatment of ubnn-jw-jtlvlayb coronavirus disease (COVID-19) caused by the SARS-CoV-2 virus. This Fact Sheet contains information to help you understand the risks and benefits of taking the PAXLOVID you have received or may receive. The [place].S. Food and Drug Administration (FDA) has issued an Emergency Use Authorization (EUA) to make PAXLOVID available during the COVID-19 pandemic (for more details about an EUA please see What is an Emergency Use Authorization? at the end of this document). PAXLOVID is not an FDA-approved medicine in the [place]. Read this Fact Sheet for information about PAXLOVID. Talk to your healthcare provider about your options or if you have any questions. It is your choice to take PAXLOVID. What is COVID-19? COVID-19 is caused by a virus called a coronavirus. You can get COVID-19 through close contact with another person who has the virus. COVID-19 illnesses have ranged from very docd-eh-psamlb, including illness resulting in . While information so far suggests that most COVID-19 illness is mild, serious illness can happen and may cause some of your other medical conditions to become worse. Older people and people of all ages with severe, long lasting (chronic) medical conditions like heart disease, lung disease, and diabetes, for example seem to be at higher risk of being hospitalized for COVID-19. What is PAXLOVID? PAXLOVID is an investigational medicine used to treat adults and children [12 years of age and older weighing at least 88 pounds (40 kg)] with a current diagnosis of tszn-ii-jlettayo COVID-19 and who are at high risk for progression to severe COVID-19, including hospitalization or . PAXLOVID is investigational because it is still being studied. There is limited information about the safety and effectiveness of using PAXLOVID to treat people with cdsk-uv-ifctskpi COVID-19. The FDA has authorized the emergency use of PAXLOVID for the treatment of tcjz-xi-mpmtrnxh COVID-19 in adults and children [12 years of age and older weighing at least 88 pounds (40 kg)] with a current diagnosis of vxzc-kz-kwemynqo COVID-19 and who are at high risk for progression to severe COVID-19, including hospitalization or , under an EUA. 1 Revised: 11 October 2021 What should I tell my healthcare provider before I take PAXLOVID? Tell your healthcare provider if you: Have any allergies Have liver or kidney disease Are or plan to become Are a child Have any serious illnesses Some medicines may interact with PAXLOVID and may cause serious side effects. Tell your healthcare provider about all the merdicines you take, including prescription and alyp-ncj-ljbvwck medicines, vitamins, and herbal supplements. Your healthcare provider can tell you if it is safe to take PAXLOVID with other medicines. You can ask your healthcare provider or pharmacist for a list of medicines that interact with PAXLOVID Do not start taking a new medicine without telling your healthcare provider. Tell your healthcare provider if you are taking combined hormonal contraceptive. PAXLOVID may affect how your control pills work. Females who are able to become should use another effective alternative form of contraception or an additional barrier method of contraception. Talk to your healthcare provider if you have any questions about contraceptive methods that might be right for you. How do I take PAXLOVID? PAXLOVID consists of 2 medicines: nirmatrelvir tablets and ritonavir tablets. The 2 medicines are taken together 2 times each day for 5 days Nirmatrelvir is an oval, pink tablet. Ritonavir is a white or off-white tablet. PAXLOVID is available in 2 Dose Packs (see Figures A and B below). Your healthcare provider will prescribe the PAXLOVID Dose Pack that is right for you. If you have kidney disease, your healthcare provider may prescribe a lower dose (see Figure B). Talk to your healthcare provider to make sure you receive the correct Dose Pack. Do not remove your PAXLOVID tablets from the blister card before you are ready to take your dose. 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 Swallow the tablets whole. Do not chew, break, or crush the tablets. Take PAXLOVID with or without food. Do not stop taking PAXLOVID without talking to your healthcare provider, even if you feel better. If you miss a dose of PAXLOVID within 8 hours of the time it is usually taken, take it as soon as you remember. If you miss a dose by more than 8 hours, skip the missed dose and take the next dose at your regular time. Do not take 2 doses of PAXLOVID at the same time. If you take too much PAXLOVID, call your healthcare provider or go to the nearest hospital emergency room right away. If you are taking a ritonavir-or cobicistat-containing medicine to treat hepatitis C or Human Immunodeficiency Virus (HIV), you should continue to take your medicine as prescribed by your healthcare provider. Talk to your healthcare provider if you do not feel better or if you feel worse after 5 days. Who should generally not take PAXLOVID? Do not take PAXLOVID if: You are allergic to nirmatrelvir, ritonavir, or any of the ingredients in PAXLOVID You are taking any of the following medicines: alfuzosin flecainide primidone amiodarone filbanserin propafenone apalutamide ivabradine quinidine carbamazepine lomitapide ranolazine colchicine lovastatin ranolazine dihydroergotamine lumacaftor/ivacaftor rifampin dronedarone lurasidone Nicci s Wort (hypericum perforatium) eletriptan methylergonovine simvastatin eplerenone midazolam (oral) sildenafil (Revatio ) for pulmonary arterial hypertension ergotamine naloxegol silodosin finerenone phenobarbital triazolam flecainide phenytoin ubrogepant pimozide voclosporin Taking PAXLOVID with these medicines may cause serious or life-threatening side effects or affect how PAXLOVID works. These are not the only medicines that may cause serious side effects if taken with PAXLOVID. PAXLOVID may increase or decrease the levels of multiple other medicines. It is very important to tell your healthcare provider about all of the medicines you are taking because additional laboratory tests or changes in the dose of your other medicines may be necessary while you are taking PAXLOVID. Your healthcare provider may also tell you about specific symptoms to watch out for that may indicate that you need to stop or decrease the dose of some of your other medicines. What are the important possible side effects of PAXLOVID? Possible side effects of PAXLOVID are: Allergic Reactions. Allergic reactions, including severe allergic reactions (known as anaphylaxis ), can happen in people taking PAXLOVID, even after only 1 dose. Stop taking PAXLOVID and call your healthcare provider right away if you get any of the following symptoms of an allergic reaction: hives trouble swallowing or breathing swelling of the mouth, lips, or face throat tightness hoarseness skin rash Liver Problems. Tell your healthcare provider right away if you have any of these signs and symptoms of liver problems: loss of appetite, yellowing of your skin and the whites of eyes (jaundice), dark-colored urine, pale colored stools and itchy skin, stomach area (abdominal) pain. Resistance to HIV Medicines. If you have untreated HIV infection, PAXLOVID may lead to some HIV medicines not working as well in the future. Other possible side effects include: altered sense of taste diarrhea high blood pressure muscle aches abdominal pain nausea feeling generally unwell These are not all the possible side effects of PAXLOVID. Not many people have taken PAXLOVID. Serious and unexpected side effects may happen. PAXLOVID is still being studied, so it is possible that all of the risks are not known at this time. What other treatment choices are there? Veklury (remdesivir) is FDA-approved for the treatment of dnka-as-xrpvumoi COVID-19 in certain adults and children. Talk with your doctor to see if Veklury is appropriate for you. Like PAXLOVID, FDA may also allow for the emergency use of other medicines to treat people with COVID-19. Go to https://www.fda.gov/emergency-pre xccjuevem-vrq-hdnfryck/mcm-legal- ihjwsosqre-fpw-eoajzd-framework/e emxdqdqx-qzp-shwxzecsifxpt for information on the emergency use of other medicines that are authorized by FDA to treat people with COVID-19. Your healthcare provider may talk with you about clinical trials for which you may be eligible. It is your choice to be treated or not to be treated with PAXLOVID. Should you decide not to receive it or for your child not to receive it, it will not change your standard medical care. What if I am or ? There is technology instructor treating women or mothers with PAXLOVID. For a mother and unborn baby, the benefit of taking PAXLOVID may be greater than the risk from the treatment. If you are , discuss your options and specific situation with your healthcare provider. It is recommended that you use effective barrier contraception or do not have sexual activity while taking PAXLOVID. If you are , discuss your options and specific situation with your healthcare provider. How do I report side effects or problems with the appearance or packaging of PAXLOVID? Contact your healthcare provider if you have any side effects that bother you or do not go away. Report side effects or problems with the appearance or packaging of PAXLOVID (see Figures A and B above for examples of PAXLOVID Dose Packs) to FDA MedWatch at www.fda.gov/medwatch or call 3-689-VSQ1596 or you can report side effects to [employer]. at the contact information provided below. Website Fax number Telephone number [employer] How should I store PAXLOVID? Store PAXLOVID tablets at room temperature, between 68?F to 77?F (20?C to 25?C). How can I learn more about COVID-19? Ask your healthcare provider. Visit https://www.cdc.gov/COVID19 Contact your local or state public health department. What is an Emergency Use Authorization (EUA)? The [place] FDA has made PAXLOVID available under an emergency access mechanism called an Emergency Use Authorization (EUA). The EUA is supported by a [employer] Sorter of Health and Human Service (HHS) declaration that circumstances exist to justify the emergency use of drugs and biological products during the COVID-19 pandemic. PAXLOVID for the treatment of [id number] COVID-19 in adults and children [12 years of age and older weighing at least 88 pounds (40 kg)] who are at high risk for progression to severe COVID-19, including hospitalization or , has not undergone the same type of review as an FDA-approved product. In issuing an EUA under the COVID-19 public health emergency, the FDA has determined, among other things, that based on the total amount of scientific evidence available including data from adequate and well-controlled clinical trials, if available, it is reasonable to believe that the product may be effective for diagnosing, treating, or preventing COVID-19, or a serious or life-threatening disease or condition caused by COVID-19; that the known and potential benefits of the product, when used to diagnose, treat, or prevent such disease or condition, outweigh the known and potential risks of such product; and that there are no adequate, approved, and available alternatives. All of these criteria must be met to allow for the product to be used in the treatment of patients during the COVID-19 pandemic. The EUA for PAXLOVID is in effect for the duration of the COVID-19 declaration justifying emergency use of this product, unless terminated or revoked (after which the products may no longer be used under the EUA). Additional Information For general questions, visit the website or call the telephone number provided below. Website Telephone number [email or web address] (5-830-A93-BFZD) You can also go to [email or web address] or call for more information. Pfizer Distributed by [employer] [place] [address] [id number] Revised: 08/2022 documented in this encounter [facility] 11-22-2022 Miscellaneous Notes Patient with positive covid. Already discussed using antivirals if positive. Nirmatrelvir/Ritonavir (Paxlovid) Eligibility and Patient Discussion [facility] Formulary Restriction Criteria: Adult outpatients 18 years and older with ALL of the following: [x] Patient has symptoms for 5 days or less [x] Not requiring hospitalization at any time for management of COVID-19 [x] Not requiring supplemental oxygen or a change in baseline supplemental oxygen [x] Not utilized for pre-exposure or post-exposure prophylaxis for prevention of COVID-19 [x] Patient does not have severe renal impairment (eGFR < 30 mL/min) or severe hepatic impairment (Child-Turcios Class C) [x] Meeting at least one of the criteria for high risk of progression to severe COVID-19: [x] Age over 65 years [x] Cancer [x] Chronic kidney disease [] Chronic liver disease [] Chronic lung diseases, including cystic fibrosis [] Dementia or other neurological conditions [] Diabetes (type 1 or type 2) [] Disabilities, including Down syndrome and neurodevelopmental disorders [] Heart conditions [] HIV infection [] Immunocompromised state [] Mental health conditions [] Medical related technological dependence (tracheostomy, gastrostomy, or positive pressure ventilation (not related to COVID) [] Overweight and obesity (BMI greater or equal to 25 for adults) [] Physical inactivity [] [] Sickle cell disease or thalassemia [] Smoking, current or former [] Solid organ or blood stem cell transplant [] Stroke or cerebrovascular disease [] Substance use disorders [] Tuberculosis [] People from racial and ethnic minority groups Criteria above are met: Yes Date of Symptom Onset:11/18 Patient received COVID vaccine: Yes Drug-Drug interactions reviewed: Yes. No drug interactions were identified. I have discussed the use of the investigational therapeutic, nirmatrelvir/ritonavir, for the treatment of mild to moderate COVID-19 and its use under Emergency Use Authorization with the patient. The patient was informed that nirmatrelvir/ritonavir is not an FDA approved drug and that it is authorized for use under this Emergency Use Authorization. The patient was also informed of the significant known benefits and potential risks of nirmatrelvir/ritonavir, and the extent to which such potential risks and benefits are unknown. The patient was informed that there is mandatory reporting of all medication errors and serious adverse events potentially related to nirmatrelvir/ritonavir treatment within 7 calendar days from the onset of the event and that events up to 28 days after completion of therapy need to be reported. The discussion included alternatives to receiving nirmatrelvir/ritonavir, including clinical trials, and potential the risks and benefits of those alternatives. The patient was provided electronically with the Fact Sheet for Patients, Parents and Caregivers . The patient was also instructed that in addition to the treatment with nirmatrelvir/ritonavir, he/she should continue to self-isolate and use infection control measures (e.g., wear mask, isolate, social distance, avoid sharing personal items, clean and disinfect high touch surfaces, and frequent handwashing) according to CDC guidelines. The patient stated understanding and gave verbal consent to proceeding with nirmatrelvir/ritonavir treatment. Los aDvenport MD November 22, 2022 11:51 AM documented in this encounter [facility] 11-21-2022 Note HNO ID: [id number] Author: Los Davenport MD Service: ? Author Type: Physician Type: Progress Notes Filed: 11/21/2022 9:06 AM Note Text: Patient presents with: Ear Pain HPI: Patient presents today for office visit for ear pain with upper respiratory symptoms. More so in left ear. Started about 3 days ago. Pain in left ear that goes down left side of neck. Tender to touch. Hurts to swallow. Woke up yesterday with pain in right ear. No discharge from ears. Nasal congestion with watery eyes. Coughing. Is achy/ Unknown if has had a fever. Body aches. No know issues with taste or smell. Did not do a home covid. MEDICATIONS: Current Outpatient Medications Medication Sig levothyroxine (LEVOXYL) 88 mcg tablet Take 1 tablet by mouth once daily. Take on empty stomach. For Thyroid pravastatin (PRAVACHOL) 20 mg tablet Take 1 tablet by mouth daily at bedtime. metFORMIN (GLUCOPHAGE) 500 mg tablet Take 1 tablet by mouth twice daily with meals. linaGLIPtin (TRADJENTA) 5 mg tab Take 1 tablet by mouth once daily. losartan (COZAAR) 25 mg tablet Take 1 tablet by mouth once daily. triamterene-hydroCHLOROthiazide (MAXZIDE) 75-50 mg per tablet Take 1 tablet by mouth once daily. blood sugar diagnostic (BLOOD GLUCOSE TEST) test strip One Touch Test strips Test blood sugar(s) 1 times daily. Dx: E11.9 Insulin:No blood sugar diagnostic (ACCU-CHEK ADRIANA PLUS TEST STRP) test strip Test blood sugar(s) 1 times daily. Dx: E11.9. Insulin: No Lancets (ACCU-CHEK SOFTCLIX LANCETS) lancets Test blood sugar(s) 1 times daily. Dx: Type 2 DM - Controlled E11.9 Insulin: No lansoprazole (PREVACID) 15 mg capsule Take 1 capsule by mouth daily before breakfast. 1/2 hr before meal. Biotin 1 mg ORAL Tab Take 1 tablet by mouth once daily. B6/folic/B12/coffee/phosphatid (NEURIVA PLUS ORAL) Take 1 tablet by mouth once daily. (Patient not taking: No sig reported) No current facility-administered medications for this visit. 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, face, and neck 2002 PAST SURGICAL HISTORY Procedure Laterality Date COLONOSCOPY FLX DX W/COLLJ SPEC WHEN PFRMD 06/26/2009 repeat due 2019 JOINT REPLACEMENT HX PAST SURGICAL HISTORY OF 08/09/2001 Direct laryngoscopy with multiple right base of tongue biopsies PAST SURGICAL HISTORY OF 02/07/2002 Right complete cervical lymphadenectomy PAST SURGICAL HISTORY OF ~ hysterectomy, non-ca PAST SURGICAL HISTORY OF knee surgery left x 3 TOTAL KNEE REPLACEMENT 09/2010, 05/2010 left and right TRACHEOSTOMY PLANNED SEPARATE PROCEDURE 2020 VAGINAL HYSTERECTOMY FAMILY HISTORY Problem Relation Age of Onset Emphysema Father Hypertension Mother Cancer Paternal Aunt Squamous cell. multiple relatives. Arthritis Sister Social History Tobacco Use Smoking status: Former Packs/day: 1.00 Years: 20.00 Pack years: 20.00 Types: Cigarettes Quit date: 06/14/1988 Years since quittin.4 Smokeless tobacco: Never Vaping Use Vaping Use: Never used Substance Use Topics Alcohol use: No Drug use: No Reviewed current medications, allergies, past medical history, surgical history, family history and social history today. REVIEW OF SYSTEMS GI: No nausea, vomiting, or diarrhea All other reviewed and negative other than HPI. VITALS: BP 122/76 Pulse 90 Temp 37.1 ?C (98.7 ?F) Ht 160 cm (5' 3 ) Wt 83.9 kg (185 lb) SpO2 97% BMI 32.77 kg/m? Last 4 Encounter Wt Readings: Date: Wt: 08/04/2022 86.2 kg (190 lb) 06/18/2022 86.2 kg (190 lb) 12/09/2021 82.6 kg (182 lb) 06/18/2021 77.6 kg (171 lb) PHYSICAL EXAMINATION: General appearance: Well appearing, alert, in no acute distress, well-hydrated, well nourished. Skin: Skin color, texture, turgor normal, no suspicious rashes or lesions Head: Normocephalic, no masses, lesions, tenderness or abnormalities Eyes: Anicteric sclera. Pupils are equally round and reactive to light. Extraocular movements are intact. Ears: External ears normal, canals clear, some serous fluid. Left greater than right. Nose/Sinuses: Nares normal, septum midline, mucosa normal, no drainage or sinus tenderness Oropharynx: post op changes. No acute changes noted. Airway is open. Neck: Supple, no adenopathy; thyroid symmetric, normal size, no bruits, no change in post op appearance. Opal (more content not included)... [facility] 11-21-2022 History of Present illness Narrative Patient presents with: Ear Pain HPI: Patient presents today for office visit for ear pain with upper respiratory symptoms. More so in left ear. Started about 3 days ago. Pain in left ear that goes down left side of neck. Tender to touch. Hurts to swallow. Woke up yesterday with pain in right ear. No discharge from ears. Nasal congestion with watery eyes. Coughing. Is achy/ Unknown if has had a fever. Body aches. No know issues with taste or smell. Did not do a home covid. MEDICATIONS: Current Outpatient Medications Medication Sig levothyroxine (LEVOXYL) 88 mcg tablet Take 1 tablet by mouth once daily. Take on empty stomach. For Thyroid pravastatin (PRAVACHOL) 20 mg tablet Take 1 tablet by mouth daily at bedtime. metFORMIN (GLUCOPHAGE) 500 mg tablet Take 1 tablet by mouth twice daily with meals. linaGLIPtin (TRADJENTA) 5 mg tab Take 1 tablet by mouth once daily. losartan (COZAAR) 25 mg tablet Take 1 tablet by mouth once daily. triamterene-hydroCHLOROthiazide (MAXZIDE) 75-50 mg per tablet Take 1 tablet by mouth once daily. blood sugar diagnostic (BLOOD GLUCOSE TEST) test strip One Touch Test strips Test blood sugar(s) 1 times daily. Dx: E11.9 Insulin:No blood sugar diagnostic (ACCU-CHEK ADRIANA PLUS TEST STRP) test strip Test blood sugar(s) 1 times daily. Dx: E11.9. Insulin: No Lancets (ACCU-CHEK SOFTCLIX LANCETS) lancets Test blood sugar(s) 1 times daily. Dx: Type 2 DM - Controlled E11.9 Insulin: No lansoprazole (PREVACID) 15 mg capsule Take 1 capsule by mouth daily before breakfast. 1/2 hr before meal. Biotin 1 mg ORAL Tab Take 1 tablet by mouth once daily. B6/folic/B12/coffee/phosphatid (NEURIVA PLUS ORAL) Take 1 tablet by mouth once daily. (Patient not taking: No sig reported) No current facility-administered medications for this visit. 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, face, and neck 2002 PAST SURGICAL HISTORY Procedure Laterality Date COLONOSCOPY FLX DX W/COLLJ SPEC WHEN PFRMD 06/26/2009 repeat due 2019 JOINT REPLACEMENT HX PAST SURGICAL HISTORY OF 08/09/2001 Direct laryngoscopy with multiple right base of tongue biopsies PAST SURGICAL HISTORY OF 02/07/2002 Right complete cervical lymphadenectomy PAST SURGICAL HISTORY OF ~ hysterectomy, non-ca PAST SURGICAL HISTORY OF knee surgery left x 3 TOTAL KNEE REPLACEMENT 09/2010, 05/2010 left and right TRACHEOSTOMY PLANNED SEPARATE PROCEDURE 2020 VAGINAL HYSTERECTOMY FAMILY HISTORY Problem Relation Age of Onset Emphysema Father Hypertension Mother Cancer Paternal Aunt Squamous cell. multiple relatives. Arthritis Sister Social History Tobacco Use Smoking status: Former Packs/day: 1.00 Years: 20.00 Pack years: 20.00 Types: Cigarettes Quit date: 06/14/1988 Years since quittin.4 Smokeless tobacco: Never Vaping Use Vaping Use: Never used Substance Use Topics Alcohol use: No Drug use: No Reviewed current medications, allergies, past medical history, surgical history, family history and social history today. REVIEW OF SYSTEMS GI: No nausea, vomiting, or diarrhea All other reviewed and negative other than HPI. VITALS: BP 122/76 Pulse 90 Temp 37.1 C (98.7 F) Ht 160 cm (5' 3 ) Wt 83.9 kg (185 lb) SpO2 97% BMI 32.77 kg/m Last 4 Encounter Wt Readings: Date: Wt: 08/04/2022 86.2 kg (190 lb) 06/18/2022 86.2 kg (190 lb) 12/09/2021 82.6 kg (182 lb) 06/18/2021 77.6 kg (171 lb) PHYSICAL EXAMINATION: General appearance: Well appearing, alert, in no acute distress, well-hydrated, well nourished. Skin: Skin color, texture, turgor normal, no suspicious rashes or lesions Head: Normocephalic, no masses, lesions, tenderness or abnormalities Eyes: Anicteric sclera. Pupils are equally round and reactive to light. Extraocular movements are intact. Ears: External ears normal, canals clear, some serous fluid. Left greater than right. Nose/Sinuses: Nares normal, septum midline, mucosa normal, no drainage or sinus tenderness Oropharynx: post op changes. No acute changes noted. Airway is open. Neck: Supple, no adenopathy; thyroid symmetric, normal size, no bruits, no change in post op appearance. Lungs: Lungs clear to auscultation. No wheezing, rhonchi, rales Heart: RRR without murmur, gallop, or rubs. No ectopy Abdomen: Normal abdominal exam, Abdomen soft, non-tender. Bowel sounds normal. No masses, organomegaly ASSESSMENT/PLAN: 1. Acute cough - ICD9: 786.2, ICD10: R05.1 - tessalon prn. Mucinex prn. Discussed risks and benefits of new medication with the patient. Advised them to call if any side effects or questions. Red flags for re-assessment reviewed with patient in detail. Call if symptoms worsen at all or if not better in one to two weeks Reviewed diagnosis and treatment options in detail. Questions were answered. Patient expressed understanding of treatment plan. Did discuss antirals if covid would end up being positive. - COVID WITH FLUA+B, ROUTINE Los Davenport MD Medical Decision Making: Problems: Moderate: New problem with uncertain prognosis Data: Unique test(s) ordered: 1 Risk: Moderate: Drug management Medical Decision Making Level: 4 - Moderate documented in this encounter [facility] documented in this encounter [facility]03-27-2023 Miscellaneous Notes* Telephone Encounter - William Jensen LPN - 10/20/2022 1:07 PM EDT Patient phones requesting refills as follows: Requested Prescriptions Pending Prescriptions Disp Refills levothyroxine (LEVOXYL) 88 mcg tablet 90 tablet 0 Sig: Take 1 tablet by mouth once daily. Take on empty stomach. For Thyroid ESTELLA 08/04/22 NOV 12/25/22 Please review and advise. William Jensen LPN * Telephone Encounter - Tung Rivas Pss - 10/20/2022 12:34 PM EDT Patient has been identified by name and date of : Yes Requested Prescriptions Pending Prescriptions Disp Refills levothyroxine (LEVOXYL) 88 mcg tablet 90 tablet 0 Sig: Take 1 tablet by mouth once daily. Take on empty stomach. For Thyroid RX INSTRUCTIONS: Patient aware RX will be sent to pharmacy. No need to notify patient. Tung Rivas Pss [facility] NoteHNO ID: [id number] Author: Lev Valle MD Service: ? 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 Valle and right fibular free flap reconstruction of the mandibular defect with Dr. Alcaraz on 01/22/21. Patient then underwent planned delayed skin grafting of the right lower extremity over the Integra wound bed using STSG from the right thigh on 02/21/21, who presents for oncologic surveillance. Ms. Tomlinson reports that she has been doing well since previous visit. She has had no new locoregional symptoms. CURRENT MEDICATIONS Current Outpatient Medications Medication Sig Dispense Refill levothyroxine (LEVOXYL) 88 mcg tablet Take 1 tablet by mouth once daily. Take on empty stomach. For Thyroid 90 tablet 0 linaGLIPtin (TRADJENTA) 5 mg tab Take 1 tablet by mouth once daily. 30 tablet 5 triamterene-hydroCHLOROthiazide (MAXZIDE) 75-50 mg per tablet Take 1 tablet by mouth once daily. 30 tablet 5 pravastatin (PRAVACHOL) 20 mg tablet Take 1 tablet by mouth daily at bedtime. 90 tablet 3 doxycycline monohydrate (MONODOX) 100 mg capsule Take 1 capsule by mouth twice daily. (Patient not taking: Reported on 07/01/2021 ) 20 capsule 0 metFORMIN (GLUCOPHAGE) 500 mg tablet Take 1 tablet by mouth twice daily with meals. 180 tablet 3 B6/folic/B12/coffee/phosphatid (NEURIVA PLUS ORAL) Take 1 tablet by mouth once daily. ibuprofen (ADVIL) 200 mg tablet Take 200 mg by mouth every 6 hours as needed for pain. guaiFENesin (ROBITUSSIN) 100 mg/5 mL syrup Take 5 mL by mouth every 6 hours as needed for cough. (Patient not taking: Reported on 07/01/2021 ) iv contrast (will be provided with radiology test) CT Chest W -Inject, intravenously, once for 1 dose.No IV access, insert saline lock prior to the beginning of sedation, infusion, injection of imaging exam. Discontinue saline lock post exam. If Pt. has a central line or IVAD, may access for administration according to line specific nursing protocol. Once exam is complete flush line and de-access according to line specific nursing protocol in the CT contrast administration guidelines link. (Patient not taking: Reported on 08/26/2021 ) 1 Each 0 losartan (COZAAR) 25 mg tablet Take 1 tablet by mouth once daily. 90 tablet 3 blood sugar diagnostic (BLOOD GLUCOSE TEST) test strip One Touch Test strips Test blood sugar(s) 1 times daily. Dx: E11.9 Insulin:No 50 Strip 11 blood sugar diagnostic (ACCU-CHEK ADRIANA PLUS TEST STRP) test strip Test blood sugar(s) 1 times daily. Dx: E11.9. Insulin: No 50 Strip 11 Lancets (ACCU-CHEK SOFTCLIX LANCETS) lancets Test blood sugar(s) 1 times daily. Dx: Type 2 DM - Controlled E11.9 Insulin: No 100 Each 11 lansoprazole (PREVACID) 15 mg capsule Take 1 capsule by mouth daily before breakfast. 1/2 hr before meal. 30 capsule 5 Biotin 1 mg ORAL Tab Take 1 tablet by mouth once daily. 0 No current facility-administered medications for this visit. EXAM: Constitutional - General Appearance: well developed, well nourished, without obvious deformities Communication: speaks with a normal voice without hoarseness Head AND Face - Overall: no obvious scars, lesions or masses Parotid and submandibular glands: no masses or tenderness Facial strength: Facial nerve intact. Normal and equal bilaterally Ear, Nose, Mouth AND Throat - Ears: both left and right external auditory canals and TM's are normal. No external deformities. Nasal exam: mucosa is pink, septum is midline, visible turbinates are normal on anterior rhinoscopy. No external deformities. Mastication: teeth appear age-appropriate Oral Cavity and oropharynx: Well-integrated flap. Mucosa, hard and soft palates, tongue, tonsil area, posterior pharyngeal wall, lips and gums are without lesions Larynx: Vocal cords normal with normal mobility, BOT without lesions. Neck: Bilateral neck scars well-healed. 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 s/p CXRT with salvage neck (more content not included)...[facility]03-22-2023 History of Present illness Narrative* Lev Valle MD - 10/15/2022 2:37 PM EDT [facility] Note CC: pT1Nx SCC of the right mandible s/p resection reconstruction Last clinic visit on 12/02/2021 HPI: Patient is a 71 year old female, former smoker (1 ppd x 20 years, quit 1987), with history of HTN, NIDDM, hypothyroidism, GERD, and 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 Valle and right fibular free flap reconstruction of the mandibular defect with Dr. Alcaraz on 01/22/21. Patient then underwent planned delayed skin grafting ofthe right lower extremity over the Integra wound bed using STSG from the right thigh on 02/21/21, who presents for oncologic surveillance. Ms. Tomlinson reports that she has been doing well since previous visit. She has had no new locoregional symptoms. CURRENT MEDICATIONS Current Outpatient Medications Medication Sig Dispense Refill levothyroxine (LEVOXYL) 88 mcg tablet Take 1 tablet by mouth once daily. Take on empty stomach. ForThyroid 90 tablet 0 linaGLIPtin (TRADJENTA) 5 mg tab Take 1 tablet by mouth once daily. 30 tablet 5 triamterene-hydroCHLOROthiazide (MAXZIDE) 75-50 mg per tablet Take 1 tablet by mouth once daily. 30tablet 5 pravastatin (PRAVACHOL) 20 mg tablet Take 1 tablet by mouth daily at bedtime. 90 tablet 3 doxycycline monohydrate (MONODOX) 100 mg capsule Take 1 capsule by mouth twice daily. (Patient not taking: Reported on 07/01/2021 ) 20 capsule 0 metFORMIN (GLUCOPHAGE) 500 mg tablet Take 1 tablet by mouth twice daily with meals. 180 tablet 3 B6/folic/B12/coffee/phosphatid (NEURIVA PLUS ORAL) Take 1 tablet by mouth once daily. ibuprofen (ADVIL) 200 mg tablet Take 200 mg by mouth every 6 hours as needed for pain. guaiFENesin (ROBITUSSIN) 100 mg/5 mL syrup Take 5 mL by mouth every 6 hours as needed for cough. (Patient not taking: Reported on 07/01/2021 ) iv contrast (will be provided with radiology test) CT Chest W -Inject, intravenously, once for 1 dose.No IV access, insert saline lock prior to the beginning of sedation, infusion, injection of imaging exam. Discontinue saline lock post exam. If Pt. has a central line or IVAD, may access for administration according to line specific nursing protocol. Once exam is complete flush line and de-accessaccording to line specific nursing protocol in the CT contrast administration guidelines link. (Patient not taking: Reported on 08/26/2021 ) 1 Each 0 losartan (COZAAR) 25 mg tablet Take 1 tablet by mouth once daily. 90 tablet 3 blood sugar diagnostic (BLOOD GLUCOSE TEST) test strip One Touch Test strips Test blood sugar(s) 1 times daily. Dx: E11.9 Insulin:No 50 Strip 11 blood sugar diagnostic (ACCU-CHEK ADRIANA PLUS TEST STRP) test strip Test blood sugar(s) 1 times daily. Dx: E11.9. Insulin: No 50 Strip 11 Lancets (ACCU-CHEK SOFTCLIX LANCETS) lancets Test blood sugar(s) 1 times daily. Dx: Type 2 DM - Controlled E11.9 Insulin: No 100 Each 11 lansoprazole (PREVACID) 15 mg capsule Take 1 capsule by mouth daily before breakfast. 1/2 hr beforemeal. 30 capsule 5 Biotin 1 mg ORAL Tab Take 1 tablet by mouth once daily. 0 No current facility-administered medications for this visit. EXAM: Constitutional - General Appearance: well developed, well nourished, without obvious deformities Communication: speaks with a normal voice without hoarseness Head & Face - Overall: no obvious scars, lesions or masses Parotid and submandibular glands: no masses or tenderness Facial strength: Facial nerve intact. Normal and equal bilaterally Ear, Nose, Mouth & Throat - Ears: both left and right external auditory canals and TM's are normal. No external deformities. Nasal exam: mucosa is pink, septum is midline, visible turbinates are normal on anterior rhinoscopy. No external deformities. Mastication: teeth appear age-appropriate Oral Cavity and oropharynx: Well-integrated flap. Mucosa, hard and soft palates, tongue, tonsil area, posterior pharyngeal wall, lips and gums are without lesions Larynx: Vocal cords normal with normal mobility, BOT without lesions. Neck: Bilateral neck scars well-healed. 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 Valle and right fibular free flap reconstruction of the mandibular defect with Dr. Alcaraz on 01/22/21. Patient then underwent planned delayed skin grafting of the right lower extremity over the Integra wound bed using STSG from the right thigh on 02/21/21. On exam today, Ms. Tomlinson is doing well and there is no evidence of recurring or new disease process. PLAN AND RECOMMENDATIONS: Continue multidisciplinary follow up Follow up in 3-4 months Parts or note taken from prior note Kari documented [place] [id number] Nurse Note* Evon Sofia MA - 10/15/2022 10:02 AM EDT Tobacco Use: 1 packs/day, for 20 years. Quit 06/14/1988. Types: Cigarettes Was smoking cessation packet given? N/A - Patient is a non-smoker or quit >1 year ago. Was a referral initiated?N/A Patient is a non-smoker [facility] NoteHNO ID: [id number] Author: Los Davenport MD Service: ? Author Type: Physician Type: Progress Notes Filed: 08/04/2022 3:42 PM Note Text: Patient presents with: Urinary Problem HPI: Patient presents today for office visit for possible urinary tract infection. Complains of pain with urination and some frequency. Refers to not putting out amount she's putting in. Ongoing for 3 days. Feeling of having to urinate but when she tries she just dribbles. Mild discomfort in the suprapubic area. No blood in the urine or flank pain. No fever or chills. No nausea or vomiting. Has been pushing fluids. 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 MEDICATIONS: Current Outpatient Medications Medication Sig pravastatin (PRAVACHOL) 20 mg tablet Take 1 tablet by mouth daily at bedtime. levothyroxine (LEVOXYL) 88 mcg tablet Take 1 tablet by mouth once daily. Take on empty stomach. For Thyroid metFORMIN (GLUCOPHAGE) 500 mg tablet Take 1 tablet by mouth twice daily with meals. linaGLIPtin (TRADJENTA) 5 mg tab Take 1 tablet by mouth once daily. losartan (COZAAR) 25 mg tablet Take 1 tablet by mouth once daily. B6/folic/B12/coffee/phosphatid (NEURIVA PLUS ORAL) Take 1 tablet by mouth once daily. blood sugar diagnostic (BLOOD GLUCOSE TEST) test strip One Touch Test strips Test blood sugar(s) 1 times daily. Dx: E11.9 Insulin:No blood sugar diagnostic (ACCU-CHEK ADRIANA PLUS TEST STRP) test strip Test blood sugar(s) 1 times daily. Dx: E11.9. Insulin: No Lancets (ACCU-CHEK SOFTCLIX LANCETS) lancets Test blood sugar(s) 1 times daily. Dx: Type 2 DM - Controlled E11.9 Insulin: No lansoprazole (PREVACID) 15 mg capsule Take 1 capsule by mouth daily before breakfast. 1/2 hr before meal. Biotin 1 mg ORAL Tab Take 1 tablet by mouth once daily. triamterene-hydroCHLOROthiazide (MAXZIDE) 75-50 mg per tablet Take 1 tablet by mouth once daily. No current facility-administered medications for this visit. 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, s/p resection, chemo, and radiation Secondary and unspecified malignant neoplasm of lymph nodes of head, face, and neck 2001 PAST SURGICAL HISTORY Procedure Laterality Date COLONOSCOPY FLX DX W/COLLJ SPEC WHEN PFRMD 06/26/2009 repeat due 2019 JOINT REPLACEMENT HX PAST SURGICAL HISTORY OF 08/09/2001 Direct laryngoscopy with multiple right base of tongue biopsies PAST SURGICAL HISTORY OF 02/07/2002 Right complete cervical lymphadenectomy PAST SURGICAL HISTORY OF ~ hysterectomy, non-ca PAST SURGICAL HISTORY OF knee surgery left x 3 TOTAL KNEE REPLACEMENT 09/2010, 05/2010 left and right TRACHEOSTOMY PLANNED SEPARATE PROCEDURE 2020 VAGINAL HYSTERECTOMY FAMILY HISTORY Problem Relation Age of Onset Emphysema Father Hypertension Mother Cancer Paternal Aunt Squamous cell. multiple relatives. Arthritis Sister Social History Tobacco Use Smoking status: Former Packs/day: 1.00 Years: 20.00 Pack years: 20.00 Types: Cigarettes Quit date: 06/14/1988 Years since quittin.1 Smokeless tobacco: Never Vaping Use Vaping Use: Never used Substance Use Topics Alcohol use: No Drug use: No Reviewed current medications, allergies, past medical history, surgical history, family history and social history today. REVIEW OF SYSTEMS All other reviewed and negative other than HPI. HEALTH MAINTENANCE: Reviewed health maintenance issues today and recommended the following in detail. ADVANCE DIRECTIVE DISCUSSION - has on file DEPRESSION ASSESSMENT due on 07/27/2022 VITALS: BP 114/68 Pulse 90 Ht 160 cm (5' 3 ) Wt 86.2 kg (190 lb) SpO2 98% BMI 33.66 kg/m? Last 4 Encounter Wt Readings: Date: Wt: 06/18/2022 86.2 kg (190 lb) 12/09/2021 82.6 kg (182 lb) 06/18/2021 77.6 kg (171 lb) 06/10/2021 78.5 kg (173 lb) PHYSICAL EXAMINATION: General appearance: Well appearing, alert, in no acute distress, well-hydrated, well nourished. Skin: Skin color, texture, turgor normal, no suspicious rashes or lesions Head: Normocephalic, no masses, lesions, tenderness or abnormalities Back: no cva tenderness. Lungs: Lungs clear to auscultation. No wheezing, rhonchi, rales Heart: RRR without murmur, gallop, or rubs. No ectopy Abdomen: Normal abdominal exam, Abdomen soft, non-tender. Bowel sounds normal. No masses, organomegaly Extremities: No deformities, edema, skin discoloration, clubbing or cyanosis. Good capillary refill. ASSESSMENT/PLAN: - (more content not included)...[facility]01-09-2023 History of Present illness Narrative* Los Davenport MD - 08/04/2022 3:26 PM EST Patient presents with: Urinary Problem HPI: Patient presents today for office visit for possible urinary tract infection. Complains of pain with urination and some frequency. Refers to not putting out amount she's puttingin. Ongoing for 3 days. Feeling of having to urinate but when she tries she just dribbles. Mild discomfort in the suprapubic area. No blood in the urine or flank pain. No fever or chills. No nausea or vomiting. Has been pushing fluids. 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 MEDICATIONS: Current Outpatient Medications Medication Sig pravastatin (PRAVACHOL) 20 mg tablet Take 1 tablet by mouth daily at bedtime. levothyroxine (LEVOXYL) 88 mcg tablet Take 1 tablet by mouth once daily. Take on empty stomach. ForThyroid metFORMIN (GLUCOPHAGE) 500 mg tablet Take 1 tablet by mouth twice daily with meals. linaGLIPtin (TRADJENTA) 5 mg tab Take 1 tablet by mouth once daily. losartan (COZAAR) 25 mg tablet Take 1 tablet by mouth once daily. B6/folic/B12/coffee/phosphatid (NEURIVA PLUS ORAL) Take 1 tablet by mouth once daily. blood sugar diagnostic (BLOOD GLUCOSE TEST) test strip One Touch Test strips Test blood sugar(s) 1 times daily. Dx: E11.9 Insulin:No blood sugar diagnostic (ACCU-CHEK ADRIANA PLUS TEST STRP) test strip Test blood sugar(s) 1 times daily. Dx: E11.9. Insulin: No Lancets (ACCU-CHEK SOFTCLIX LANCETS) lancets Test blood sugar(s) 1 times daily. Dx: Type 2 DM - Controlled E11.9 Insulin: No lansoprazole (PREVACID) 15 mg capsule Take 1 capsule by mouth daily before breakfast. 1/2 hr beforemeal. Biotin 1 mg ORAL Tab Take 1 tablet by mouth once daily. triamterene-hydroCHLOROthiazide (MAXZIDE) 75-50 mg per tablet Take 1 tablet by mouth once daily. No current facility-administered medications for this visit. 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, face, and neck 2002 PAST SURGICAL HISTORY Procedure Laterality Date COLONOSCOPY FLX DX W/COLLJ SPEC WHEN PFRMD 06/26/2009 repeat due 2019 JOINT REPLACEMENT HX PAST SURGICAL HISTORY OF 08/09/2001 Direct laryngoscopy with multiple right base of tongue biopsies PAST SURGICAL HISTORY OF 02/07/2002 Right complete cervical lymphadenectomy PAST SURGICAL HISTORY OF ~ hysterectomy, non-ca PAST SURGICAL HISTORY OF knee surgery left x 3 TOTAL KNEE REPLACEMENT 09/2010, 05/2010 left and right TRACHEOSTOMY PLANNED SEPARATE PROCEDURE 2020 VAGINAL HYSTERECTOMY FAMILY HISTORY Problem Relation Age of Onset Emphysema Father Hypertension Mother Cancer Paternal Aunt Squamous cell. multiple relatives. Arthritis Sister Social History Tobacco Use Smoking status: Former Packs/day: 1.00 Years: 20.00 Pack years: 20.00 Types: Cigarettes Quit date: 06/14/1988 Years since quittin.1 Smokeless tobacco: Never Vaping Use Vaping Use: Never used Substance Use Topics Alcohol use: No Drug use: No Reviewed current medications, allergies, past medical history, surgical history, family history andsocial history today. REVIEW OF SYSTEMS All other reviewed and negative other than HPI. HEALTH MAINTENANCE: Reviewed health maintenance issues today and recommended the following in detail. ADVANCE DIRECTIVE DISCUSSION - has on file DEPRESSION ASSESSMENT due on 07/27/2022 VITALS: BP 114/68 Pulse 90 Ht 160 cm (5' 3 ) Wt 86.2 kg (190 lb) SpO2 98% BMI 33.66 kg/m Last 4 Encounter Wt Readings: Date: Wt: 06/18/2022 86.2 kg (190 lb) 12/09/2021 82.6 kg (182 lb) 06/18/2021 77.6 kg (171 lb) 06/10/2021 78.5 kg (173 lb) PHYSICAL EXAMINATION: General appearance: Well appearing, alert, in no acute distress, well-hydrated, well nourished. Skin: Skin color, texture, turgor normal, no suspicious rashes or lesions Head: Normocephalic, no masses, lesions, tenderness or abnormalities Back: no cva tenderness. Lungs: Lungs clear to auscultation. No wheezing, rhonchi, rales Heart: RRR without murmur, gallop, or rubs. No ectopy Abdomen: Normal abdominal exam, Abdomen soft, non-tender. Bowel sounds normal. No masses, organomegaly Extremities: No deformities, edema, skin discoloration, clubbing or cyanosis. Good capillary refill. ASSESSMENT/PLAN: - Discussed risks and benefits of new medication with the patient. Advised them to call if any sideeffects or questions. Red flags for re-assessment reviewed with patient in detail. Call if symptoms worsen at all or if not better in one to two weeks Reviewed diagnosis and treatment options in detail. Questions were answered. Patient expressed understanding of treatment plan. - get ua in two weeks. - URINE CULTURE - URINALYSIS, WITH MICROSCOPIC - NITROFURANTOIN MONOHYDRATE & MACROCRYSTAL 100 MG ORAL CAP Los Davenport MD documented in this encounterCleveland [id number] Miscellaneous Notes* Telephone Encounter - Gabriela Peters LPN - 07/28/2022 10:12 AM EST Call received from pt. She will be out of medication 07/29/2022 Last OV: 06/18/22 Future OV: 12/25/22 Elyse Peters LPN [facility] Instructions* Patient Instructions* Los Davenport MD - 06/18/2022 9:57 AM EST Take prevacid daily for the next month. Use claritin or pedro over the counter for drainage. Call with an update in a months [facility]11[facility] History of Present illness Narrative* Los Davenport MD - 06/18/2022 9:20 AM EST Patient presents with: Recheck: 6 month HPI: Patient presents today for office visit for follow up. HTN: BP is stable. Tolerating medications. No chest pain or shortness of breath No dizziness or headaches No edema HLD: No myalgias. HYPOTHYROID: TSH level good. DM: A1c 6.8 On Metformin 500 mg twice a day and Linagliptin 5 mg once daily. Watches diet. GERD: Symptoms controlled. Saw ENT Has issues with and his drinking at home. Considering divorce. Offered meds or counseling for stress. Declines. Has had coughing. For months. Is using prevacid prn. Happens all the time. No shortness of breath or wheeze. Has some post nasal drip. Component Latest Ref Rng & Units 06/17/2022 WBC 3.70 - 11.00 k/uL 7.68 RBC 3.90 - 5.20 m/uL 5.21 (H) Hemoglobin 11.5 - 15.5 g/dL 14.6 Hematocrit 36.0 - 46.0 % 44.6 MCV 80.0 - 100.0 fL 85.6 MCH 26.0 - 34.0 pg 28.0 MCHC 30.5 - 36.0 g/dL 32.7 RDW-CV 11.5 - 15.0 % 12.8 Platelet Count 150 - 400 k/uL 225 MPV 9.0 - 12.7 fL 9.9 Neut% % 57.6 Abs Neut (ANC) 1.45 - 7.50 k/uL 4.43 Lymph% % 19.0 Abs Lymph 1.00 - 4.00 k/uL 1.46 Galax% % 13.4 Abs Galax <0.87 k/uL 1.03 (H) Eosin% % 9.0 Abs Eosin <0.46 k/uL 0.69 (H) Baso% % 0.7 Abs Baso <0.11 k/uL 0.05 Immature Gran % % 0.3 IMMATURE GRANS (ABS) <0.10 k/uL <0.03 NRBC /100 WBC 0.0 Absolute nRBC <0.01 k/uL <0.01 DTYPE Auto Protein, Total 6.3 - 8.0 g/dL 6.9 Albumin 3.9 - 4.9 g/dL 4.3 Calcium 8.5 - 10.2 mg/dL 9.6 Bilirubin, Total 0.2 - 1.3 mg/dL 0.3 Alkaline Phosphatase 34 - 123 U/L 88 AST 13 - 35 U/L 20 ALT 7 - 38 U/L 16 Glucose 74 - 99 mg/dL 165 (H) BUN 7 - 21 mg/dL 20 Creatinine 0.58 - 0.96 mg/dL 1.05 (H) Sodium 136 - 144 mmol/L 139 Potassium 3.7 - 5.1 mmol/L 4.1 Chloride 97 - 105 mmol/L 98 CO2 22 - 30 mmol/L 28 Anion Gap 9 - 18 mmol/L 13 eGFR >=60 mL/min/1.73m 56 (L) Cholesterol, Total <200 mg/dL 169 Triglyceride <150 mg/dL 120 HDL Cholesterol >39 mg/dL 64 Non HDL Cholesterol <130 mg/dL 105 Fasting Time hrs 12 VLDL Cholesterol <30 mg/dL 24 TC:HDL Ratio <5.10 2.64 LDL Cholesterol <100 mg/dL 81 LDL:HDL Ratio <2.54 1.27 Hemoglobin A1C 4.3 - 5.6 % 6.8 (H) Estimated Average Glucose mg/dL 148 TSH 0.270 - 4.200 mIU/L 3.250 MEDICATIONS: Current Outpatient Medications Medication Sig metFORMIN (GLUCOPHAGE) 500 mg tablet Take 1 tablet by mouth twice daily with meals. linaGLIPtin (TRADJENTA) 5 mg tab Take 1 tablet by mouth once daily. levothyroxine (LEVOXYL) 88 mcg tablet Take 1 tablet by mouth once daily. Take on empty stomach. ForThyroid losartan (COZAAR) 25 mg tablet Take 1 tablet by mouth once daily. triamterene-hydroCHLOROthiazide (MAXZIDE) 75-50 mg per tablet Take 1 tablet by mouth once daily. pravastatin (PRAVACHOL) 20 mg tablet Take 1 tablet by mouth daily at bedtime. B6/folic/B12/coffee/phosphatid (NEURIVA PLUS ORAL) Take 1 tablet by mouth once daily. ibuprofen (MOTRIN) 200 mg tablet Take 200 mg by mouth every 6 hours as needed for pain. iv contrast (will be provided with radiology test) CT Chest W -Inject, intravenously, once for 1 dose.No IV access, insert saline lock prior to the beginning of sedation, infusion, injection of imaging exam. Discontinue saline lock post exam. If Pt. has a central line or IVAD, may access for administration according to line specific nursing protocol. Once exam is complete flush line and de-accessaccording to line specific nursing protocol in the CT contrast administration guidelines link. blood sugar diagnostic (BLOOD GLUCOSE TEST) test strip One Touch Test strips Test blood sugar(s) 1 times daily. Dx: E11.9 Insulin:No blood sugar diagnostic (ACCU-CHEK ADRIANA PLUS TEST STRP) test strip Test blood sugar(s) 1 times daily. Dx: E11.9. Insulin: No Lancets (ACCU-CHEK SOFTCLIX LANCETS) lancets Test blood sugar(s) 1 times daily. Dx: Type 2 DM - Controlled E11.9 Insulin: No lansoprazole (PREVACID) 15 mg capsule Take 1 capsule by mouth daily before breakfast. 1/2 hr beforemeal. Biotin 1 mg ORAL Tab Take 1 tablet by mouth once daily. No current facility-administered medications for this visit. ALLERGIES: ALLERGIES Allergen Reactions Celery Other: See Comments Migraine Lisinopril Cough PAST MEDICAL HISTORY Diagnosis Date Diabetes mellitus, type 2 (HCC) 2011 Diverticulosis of colon (without mention of hemorrhage) DVT (deep venous thrombosis) (HCC) 2002 bilateral leg DVT during chemo/radiation GERD (gastroesophageal reflux disease) Hx ulcer Hypertension Hypothyroidism 2002 Malignant neoplasm of base of tongue (HCC) 2002 Osteoarthritis 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, s/p resection, chemo, and radiation Secondary and unspecified malignant neoplasm of lymph nodes of head, face, and neck 2002 PAST SURGICAL HISTORY Procedure Laterality Date COLONOSCOPY FLX DX W/COLLJ SPEC WHEN PFRMD 06/26/2009 repeat due 2019 JOINT REPLACEMENT HX PAST SURGICAL HISTORY OF 08/09/2001 Direct laryngoscopy with multiple right base of tongue biopsies PAST SURGICAL HISTORY OF 02/07/2002 Right complete cervical lymphadenectomy PAST SURGICAL HISTORY OF ~ hysterectomy, non-ca PAST SURGICAL HISTORY OF knee surgery left x 3 TOTAL KNEE REPLACEMENT 09/2010, 05/2010 left and right TRACHEOSTOMY PLANNED SEPARATE PROCEDURE 2020 VAGINAL HYSTERECTOMY FAMILY HISTORY Problem Relation Age of Onset Emphysema Father Hypertension Mother Cancer Paternal Aunt Squamous cell. multiple relatives. Arthritis Sister Social History Tobacco Use Smoking status: Former Packs/day: 1.00 Years: 20.00 Pack years: 20.00 Types: Cigarettes Quit date: 06/14/1988 Years since quittin.0 Smokeless tobacco: Never Vaping Use Vaping Use: Never used Substance Use Topics Alcohol use: No Drug use: No Reviewed current medications, allergies, past medical history, surgical history, family history andsocial history today. REVIEW OF SYSTEMS No bowel changes. All other reviewed and negative other than HPI. HEALTH MAINTENANCE: Reviewed health maintenance issues today and recommended the following in detail. DEPRESSION ASSESSMENT Never done COVID-19 VACCINE-done on Thursday INFLUENZA(1) due on 03/27/2022-will not get one. DILATED RETINAL EXAM -got them done Thursday VITALS: BP 138/80 Pulse 79 Resp 20 Wt 86.2 kg (190 lb) SpO2 96% BMI 33.66 kg/m Last 4 Encounter Wt Readings: Date: Wt: 12/09/2021 82.6 kg (182 lb) 06/18/2021 77.6 kg (171 lb) 06/10/2021 78.5 kg (173 lb) 04/11/2021 77.1 kg (170 lb) PHYSICAL EXAMINATION: General appearance: Well appearing, alert, in no acute distress, well-hydrated, well nourished. Skin: Skin color, texture, turgor normal, no suspicious rashes or lesions Head: Normocephalic, no masses, lesions, tenderness or abnormalities Neck: Supple, no adenopathy; thyroid symmetric, normal size, no bruits Lungs: Lungs clear to auscultation. No wheezing, rhonchi, rales Heart: RRR without murmur, gallop, or rubs. No ectopy Abdomen: Normal abdominal exam, Abdomen soft, non-tender. Bowel sounds normal. No masses, organomegaly Extremities: No deformities, edema, skin discoloration, clubbing or cyanosis. Good capillary refill. ASSESSMENT/PLAN: 1. Hypothyroidism, unspecified type - ICD9: 244.9, ICD10: E03.9 (primary diagnosis) - continue meds. 2. Cancer of oral cavity (HCC) - ICD9: 145.9, ICD10: C06.9 - follow with ent 3. 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 4. Hypertensive kidney disease with stage 3 chronic kidney disease, unspecified whether stage 3a or3b CKD (HCC) - ICD9: 403.90, 585.3, ICD10: I12.9, N18.30 - good control - Goal of BP <130/80 - CBC + DIFF - BASIC METABOLIC PNL 5. Type 2 diabetes mellitus with stage 3 chronic kidney disease, without long- term current use of insulin, unspecified whether stage 3a or 3b CKD (HCC) - ICD9: 250.40, 585.3, ICD10: E11.22, N18.30 Controlled. - Continue current medication - labs in six months - HGB A1C 6. Essential hypertension - ICD9: 401.9, ICD10: I10 7. Hyperlipidemia with target LDL less than 100 - ICD9: 272.4, ICD10: E78.5 - good control - Continue current therapy. 8. Cough, unspecified type - ICD9: 786.2, ICD10: R05.9 - add pedro or claritin. Take prevacid daily. Declines pfts - call with update in one month or sooner if worsens. - XR CHEST 2V FRONTAL/LAT Los Davenport MD RTO in six months documented in this encounterCleveland [id number] Miscellaneous Notes* Telephone Encounter - William Jensen LPN - 05/19/2022 12:12 PM EDT ESTELLA 12/09/21 NOV 06/16/22 * Telephone Encounter - Tung Rivas Pss - 05/19/2022 10:59 AM EDT Patient has been identified by name and date of : Yes Requested Prescriptions Pending Prescriptions Disp Refills metFORMIN (GLUCOPHAGE) 500 mg tablet 180 tablet 3 Sig: Take 1 tablet by mouth twice daily with meals. linaGLIPtin (TRADJENTA) 5 mg tab 30 tablet 5 Sig: Take 1 tablet by mouth once daily. RX INSTRUCTIONS: Patient aware RX will be sent to pharmacy. No need to notify patient. Tung Rivas Pss documented in this encounterTr[facility]-31-[facility]22 History of Present illness Narrative* Jacob Isidro Pss - 03/26/2022 4:55 PM EDT POPULATION HEALTH NAVIGATION OUTREACH Action/FYI: [employer] Care Gaps 03/26/22 Discuss/Due: ~Breast Cancer Screening ~Flu Vaccine ~HgBA1C ~Dilated Retinal Exam due 06/14/22 Outcome: ~Left voice mail and sent [employer] message Pt identified by name and : NO Outreach Outcome/Action Unable to reach patient: Left message MyChart message sent Did you use a PCP flex slot to schedule this appointment? N/A Reason for Outreach Care Gap or Scheduling/Wellness visits Payer: Payor: [employer] MEDICARE / Plan: [employer] MEDICARE PPO / Product Type: PPO / Care Gap Reviewed:: Breast Cancer screening Colorectal Cancer Screening HBA1C Flu vaccine Reminder: Reminder note to check Health Maintenance for items below Health Maintenance items due: BP CONTROLLED (<130/80) Never done SHINGRIX VACCINE(1 of 2) Never done COVID-19 VACCINE(4 - Booster for Moderna series) due on 10/15/2021 HBA1C due on 12/15/2021 Message Sent to Practice: No Navigation Signature: Jacob Joyce Population Health Navigator March 26, 2022 4:55 PM documented in this encounterTr[facility]08-22-2022 History of Present illness Narrative* Lev Valle MD - 03/17/2022 10:15 AM EDT [facility] Note CC: H/o Oral cavity SCC Last clinic visit on 12/02/2021 HPI: Patient is a 71 year old female, former smoker (1 pack a day), with history of HTN, NIDDM, hypothyroidism, GERD, and 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 Valle and right fibular free flap reconstruction of the mandibular defect with Dr. Alcaraz on 01/22/21. Patient then underwent planned delayed skin grafting of the right lower extremity over the Integra wound bed using STSG from the right thigh on 02/21/21 who presents todayfor oncologic surveillance. Patient reports that she is still doing well since last clinic visit. No new worrying symptoms. Shehas noticed that her left lateral tongue/FOM feels sore recently. Current Outpatient Medications Medication Sig Dispense Refill levothyroxine (LEVOXYL) 88 mcg tablet Take 1 tablet by mouth once daily. Take on empty stomach. ForThyroid 90 tablet 0 losartan (COZAAR) 25 mg tablet Take 1 tablet by mouth once daily. 90 tablet 3 triamterene-hydroCHLOROthiazide (MAXZIDE) 75-50 mg per tablet Take 1 tablet by mouth once daily. 90tablet 3 linaGLIPtin (TRADJENTA) 5 mg tab Take 1 tablet by mouth once daily. 30 tablet 5 pravastatin (PRAVACHOL) 20 mg tablet Take 1 tablet by mouth daily at bedtime. 90 tablet 3 metFORMIN (GLUCOPHAGE) 500 mg tablet Take 1 tablet by mouth twice daily with meals. 180 tablet 3 B6/folic/B12/coffee/phosphatid (NEURIVA PLUS ORAL) Take 1 tablet by mouth once daily. ibuprofen (ADVIL) 200 mg tablet Take 200 mg by mouth every 6 hours as needed for pain. iv contrast (will be provided with radiology test) CT Chest W -Inject, intravenously, once for 1 dose.No IV access, insert saline lock prior to the beginning of sedation, infusion, injection of imaging exam. Discontinue saline lock post exam. If Pt. has a central line or IVAD, may access for administration according to line specific nursing protocol. Once exam is complete flush line and de-accessaccording to line specific nursing protocol in the CT contrast administration guidelines link. (Patient not taking: Reported on 08/26/2021 ) 1 Each 0 blood sugar diagnostic (BLOOD GLUCOSE TEST) test strip One Touch Test strips Test blood sugar(s) 1 times daily. Dx: E11.9 Insulin:No 50 Strip 11 blood sugar diagnostic (ACCU-CHEK ADRIANA PLUS TEST STRP) test strip Test blood sugar(s) 1 times daily. Dx: E11.9. Insulin: No 50 Strip 11 Lancets (ACCU-CHEK SOFTCLIX LANCETS) lancets Test blood sugar(s) 1 times daily. Dx: Type 2 DM - Controlled E11.9 Insulin: No 100 Each 11 lansoprazole (PREVACID) 15 mg capsule Take 1 capsule by mouth daily before breakfast. 1/2 hr beforemeal. 30 capsule 5 Biotin 1 mg ORAL Tab Take 1 tablet by mouth once daily. 0 No current facility-administered medications for this visit. EXAM: Constitutional - General Appearance: well developed, well nourished, with post-reconstructive changes Communication: speaks with a normal voice without hoarseness Head & Face - Overall: no obvious scars, lesions or masses Parotid and submandibular glands: no masses or tenderness Facial strength: Facial nerve intact. Normal and equal bilaterally Ear, Nose, Mouth & Throat - Ears: both left and right external auditory canals and TM's are normal. No external deformities. Nasal exam: mucosa is pink, septum is midline, visible turbinates are normal on anterior rhinoscopy. No external deformities. Mastication: Edentulous mandibule. Age appropriate teeth otherwise. Oral Cavity and oropharynx: Well integrated flap. Aphthous ulcer noted on lingual surface of right mandibular gingiva. Larynx: mirror exam limited by gag reflex Neck: B/l neck scars well healed Thyroid: no asymmetry, thyromegaly, or thyroid nodules on palpation Neuro: CN III - CN XII grossly intact PROCEDURE NOTE: Recommended flexible laryngoscopy. Risks, benefits and alternatives were explained.The patient wished to proceed she was reidentified and a time out obtained. PROCEDURE: Flexible Laryngoscopy PREOPERATIVE DIAGNOSIS: H/o pT1Nx SCC of the right mandible POSTOPERATIVE DIAGNOSIS: same as above INDICATIONS: Evaluation of the larynx and immediate subglottis - unable to be visualized by mirror examination ANESTHESIA: Lidocaine 2% and Rafael-Synephrine % PROCEDURE: With the patient sitting upright, informed consent was obtained. The patient was reidentified and a time out made. Topical anesthesia and vasoconstriction was applied with spray to the right and left side(s) of the nose. After waiting an appropriate period of time for anesthesia/vasoconst riction to become effective, a flexible laryngoscope was passed through the right side(s) of the nose. Nasopharynx, oropharynx, hypopharynx and larynx were examined. FINDINGS: The nasopharynx and oropharynx were normal without any lesions or masses visualized. No masses or lesions were visualized at the base of tongue, vallecula, epiglottis, aryepiglottic folds, pyriform sinuses, and lateral pharyngeal mcclure. True vocal fold movement was intact bilaterally. No lesions visualized. The patient's airway was widely patent with no evidence of obstruction. Pt tolerated the procedure well, and there were no complications. The procedure was performed by Dr. Chavez and Lev Valle MD. Given the patient's history and physical examination, the above procedure was recommended. I reviewed the risks, benefits, alternatives, and what to expect from the procedure and informed consent wasobtained from the patient. The patient wished to proceed. I performed or was present for the entirety of the procedure. 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 Valle and right fibular free flap reconstruction of the mandibular defect with Dr. Alcaraz on 01/22/21. Patient then underwent planned delayed skin grafting of the right lower extremity over the Integra wound bed using STSG from the right thigh on 02/21/21 who presents today for oncologic surveillance. No new symptoms worrisome for recurrence and on exam today patient is without masses, lesions, or other worrisome findings. PLAN AND RECOMMENDATIONS: Follow-up in clinic in 3 months Rick hCavez MD for the service of Lev Valle MD Medical Decision Making: Medical Decision Making Level: 1 - N/A March 18, 2022 I participated in the history and physical exam of Nickie Tomlinson. I discussed the management of Nickie Leti Tristin with the resident. I reviewed the resident's note and agree with the documented findings and plan of care. Lev Valle MD documented in this encounterTr[facility]08-22-2022 Nurse Note* Estella Grayson Ma - 03/17/2022 9:59 AM EDT Tobacco Use: 1 packs/day, for 20 years. Quit 06/14/1988. Types: Cigarettes Was smoking cessation packet given? N/A - Patient is a non-smoker or quit >1 year ago. Was a referral initiated?N/A Patient is a non-smoker documented in this encounterTr[facility]07-01-2022 Miscellaneous Notes* Telephone Encounter - William Jensen LPN - 01/24/2022 10:54 AM EDT ESTELLA 12/09/21 NOV 06/16/22 * Telephone Encounter - Crista Reed Pss - 01/24/2022 10:45 AM EDT Patient has been identified by name and date of : Yes Pending Prescriptions Disp Refills LEVOTHYROXINE 88 MCG TABLET 90 tablet 0 Sig: Take 1 tablet by mouth once daily. Take on empty stomach. For Thyroid MAGUE: No RX INSTRUCTIONS: Patient aware RX will be sent to pharmacy. No need to notify patient. Crista Reed Pss documented in this encounterTr[facility]06-02-2022 Miscellaneous Notes* Telephone Encounter - Yolanda Lama LPN - 12/26/2021 9:58 AM EDT Last office visit 12/09/2021 * Telephone Encounter - Radha Paez - 12/26/2021 9:43 AM EDT Patient is asking that her script for TRIAMTERENE 75 MG-HYDROCHLOROTHIAZIDE 50 MG TABLET be changedto a 90 day supply. (the request has been updated and pended, but refills have been left off at doctor's discretion). * Telephone Encounter - Radha Paez - 12/26/2021 9:40 AM EDT Pharmacy verified in [facility] Patient has been identified by name and date of : Yes Patient aware RX will be sent to pharmacy. No need to notify patient. Patient phones for refill(s): Pending Prescriptions Disp Refills LOSARTAN 25 MG TABLET 90 tablet 3 Sig: Take 1 tablet by mouth once daily. MAGUE: No TRIAMTERENE 75 MG-HYDROCHLOROTHIAZIDE 50 MG TABLET 90 tablet 0 Sig: Take 1 tablet by mouth once daily. MAGUE: No Date of last office visit : 12/09/2021 Date of next office visit : 06/16/2022 Last 2 Encounter Wt Readings: Date: Wt: 12/09/2021 82.6 kg (182 lb) 06/18/2021 77.6 kg (171 lb) Please advise. Radha Vicente Pss documented in this encounterTr[facility]05-16-2022 History of Present illness Narrative* Los Davenport MD - 12/09/2021 10:50 AM EDT Patient presents with: 6 Month Exam HPI: Patient presents today for office visit for follow up. DMoverdue for labs. Only got tsh from last visit drawn. Needs done. No polyuria or polydipsia. Appetite is improving. ONC:follolwing closely HLD:tolerating meds. HYPERTENSION:no chest pain or shortness of breath. No edema. No dizzines. HYPOTHYROID:tsh was good DERM:wounds are healed. Component Latest Ref Rng & Units 06/17/2021 12/05/2021 WBC 3.70 - 11.00 k/uL 5.69 RBC 3.90 - 5.20 m/uL 4.39 Hemoglobin 11.5 - 15.5 g/dL 12.0 Hematocrit 36.0 - 46.0 % 37.5 MCV 80.0 - 100.0 fL 85.4 MCH 26.0 - 34.0 pG 27.3 MCHC 30.5 - 36.0 g/dL 32.0 RDW-CV 11.5 - 15.0 % 13.6 Platelet Count 150 - 400 k/uL 235 MPV 9.0 - 12.7 fL 10.4 Neut% % 37.2 Abs Neut (ANC) 1.45 - 7.50 k/uL 2.11 Lymph% % 24.4 Abs Lymph 1.00 - 4.00 k/uL 1.39 Galax% % 13.9 Abs Galax <0.87 k/uL 0.79 Eosin% % 23.6 Abs Eosin <0.46 k/uL 1.34 (H) Baso% % 0.9 Abs Baso <0.11 k/uL 0.05 Nucleated Reds 0 /100 WBC 0.0 Absolute nRBC <0.01 k/uL <0.01 Diff Type Auto Diff Protein, Total 6.3 - 8.0 g/dL 6.9 Albumin 3.9 - 4.9 g/dL 4.2 Calcium 8.5 - 10.2 mg/dL 9.7 Bilirubin, Total 0.2 - 1.3 mg/dL 0.3 Alkaline Phosphatase 34 - 123 U/L 76 AST 13 - 35 U/L 21 Glucose 74 - 99 mg/dL 157 (H) BUN 7 - 21 mg/dL 17 Creatinine 0.58 - 0.96 mg/dL 1.19 (H) Sodium 136 - 144 mmol/L 139 Potassium 3.7 - 5.1 mmol/L 3.8 Chloride 97 - 105 mmol/L 99 CO2 22 - 30 mmol/L 29 Anion Gap 9 - 18 mmol/L 11 ALT 7 - 38 U/L 13 eGFR- 54 eGFR-All Other Races . 45 Cholesterol, Total <200 mg/dL 156 Triglyceride <150 mg/dL 93 HDL Cholesterol >39 mg/dL 63 LDL Cholesterol <100 mg/dL 74 Non HDL Cholesterol <130 mg/dL 93 Fasting Time hrs 12 VLDL Cholesterol <30 mg/dL 19 TC:HDL Ratio <5.10 2.48 LDL:HDL Ratio <2.54 1.17 Hemoglobin A1C 4.3 - 5.6 % 6.2 (H) Estimated Average Glucose mg/dL 131 TSH 0.270 - 4.200 mIU/L 2.850 MEDICATIONS: Current Outpatient Medications Medication Sig levothyroxine (LEVOXYL) 88 mcg tablet Take 1 tablet by mouth once daily. Take on empty stomach. ForThyroid linaGLIPtin (TRADJENTA) 5 mg tab Take 1 tablet by mouth once daily. triamterene-hydroCHLOROthiazide (MAXZIDE) 75-50 mg per tablet Take 1 tablet by mouth once daily. pravastatin (PRAVACHOL) 20 mg tablet Take 1 tablet by mouth daily at bedtime. B6/folic/B12/coffee/phosphatid (NEURIVA PLUS ORAL) Take 1 tablet by mouth once daily. ibuprofen (ADVIL) 200 mg tablet Take 200 mg by mouth every 6 hours as needed for pain. losartan (COZAAR) 25 mg tablet Take 1 tablet by mouth once daily. blood sugar diagnostic (BLOOD GLUCOSE TEST) test strip One Touch Test strips Test blood sugar(s) 1 times daily. Dx: E11.9 Insulin:No blood sugar diagnostic (ACCU-CHEK ADRIANA PLUS TEST STRP) test strip Test blood sugar(s) 1 times daily. Dx: E11.9. Insulin: No Biotin 1 mg ORAL Tab Take 1 tablet by mouth once daily. doxycycline monohydrate (MONODOX) 100 mg capsule Take 1 capsule by mouth twice daily. (Patient not taking: Reported on 07/01/2021 ) metFORMIN (GLUCOPHAGE) 500 mg tablet Take 1 tablet by mouth twice daily with meals. guaiFENesin (ROBITUSSIN) 100 mg/5 mL syrup Take 5 mL by mouth every 6 hours as needed for cough. (Patient not taking: Reported on 07/01/2021 ) iv contrast (will be provided with radiology test) CT Chest W -Inject, intravenously, once for 1 dose.No IV access, insert saline lock prior to the beginning of sedation, infusion, injection of imaging exam. Discontinue saline lock post exam. If Pt. has a central line or IVAD, may access for administration according to line specific nursing protocol. Once exam is complete flush line and de-accessaccording to line specific nursing protocol in the CT contrast administration guidelines link. (Patient not taking: Reported on 08/26/2021 ) Lancets (ACCU-CHEK SOFTCLIX LANCETS) lancets Test blood sugar(s) 1 times daily. Dx: Type 2 DM - Controlled E11.9 Insulin: No lansoprazole (PREVACID) 15 mg capsule Take 1 capsule by mouth daily before breakfast. 1/2 hr beforemeal. No current facility-administered medications for this visit. 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, face, and neck 2002 PAST SURGICAL HISTORY Procedure Laterality Date COLONOSCOPY FLX DX W/COLLJ SPEC WHEN PFRMD 06/26/2009 repeat due 2019 JOINT REPLACEMENT HX PAST SURGICAL HISTORY OF 08/09/2001 Direct laryngoscopy with multiple right base of tongue biopsies PAST SURGICAL HISTORY OF 02/07/2002 Right complete cervical lymphadenectomy PAST SURGICAL HISTORY OF ~ hysterectomy, non-ca PAST SURGICAL HISTORY OF knee surgery left x 3 TOTAL KNEE REPLACEMENT 09/2010, 05/2010 left and right TRACHEOSTOMY PLANNED SEPARATE PROCEDURE 2020 VAGINAL HYSTERECTOMY FAMILY HISTORY Problem Relation Age of Onset Emphysema Father Hypertension Mother Cancer Paternal Aunt Squamous cell. multiple relatives. Arthritis Sister Social History Tobacco Use Smoking status: Former Smoker Packs/day: 1.00 Years: 20.00 Pack years: 20.00 Types: Cigarettes Quit date: 06/14/1988 Years since quittin.5 Smokeless tobacco: Never Used Vaping Use Vaping Use: Never used Substance Use Topics Alcohol use: No Drug use: No Reviewed current medications, allergies, past medical history, surgical history, family history andsocial history today. REVIEW OF SYSTEMS appetite is much better. All other reviewed and negative other than HPI. HEALTH MAINTENANCE: Reviewed health maintenance issues today and recommended the following in detail. URINE ALBUMIN:CREATININE RATIO due on 07/26/2021 ADVANCE DIRECTIVE DISCUSSION - is on file VITALS: BP 134/78 Pulse 76 Wt 82.6 kg (182 lb) BMI 32.24 kg/m Last 4 Encounter Wt Readings: Date: Wt: 12/09/2021 82.6 kg (182 lb) 06/18/2021 77.6 kg (171 lb) 06/10/2021 78.5 kg (173 lb) 04/11/2021 77.1 kg (170 lb) PHYSICAL EXAMINATION: General appearance: Well appearing, alert, in no acute distress, well-hydrated, well nourished. Skin: Skin color, texture, turgor normal, no suspicious rashes or lesions Head: Normocephalic, no masses, lesions, tenderness or abnormalities Lungs: Lungs clear to auscultation. No wheezing, rhonchi, rales Heart: RRR without murmur, gallop, or rubs. No ectopy Abdomen: Normal abdominal exam, Abdomen soft, non-tender. Bowel sounds normal. No masses, organomegaly Extremities: No deformities, edema, skin discoloration, clubbing or cyanosis. Good capillary refill. Musculoskeletal: No joint swelling, deformity, or tenderness Feet:Shoes and socks removed, No deformities, ulcers, calluses, normal distal pulses and sensitive to 10 gm monofilament ASSESSMENT/PLAN: 1. Essential hypertension - ICD9: 401.9, ICD10: I10 (primary diagnosis) - good control - Continue current medication(s) - Goal of BP <130/80 2. Type 2 diabetes mellitus with stage 3 chronic kidney disease, without long- term current use of insulin, unspecified whether stage 3a or 3b CKD (HCC) - ICD9: 250.40, 585.3, ICD10: E11.22, N18.30 Controlled. - Continue current medications - HGB A1C - ALBUMIN/CREAT RATIO RND UR - HGB A1C - CBC + DIFF - COMP METABOLIC PANEL - HGB A1C - LIPID PANEL BASIC 3. Stage 3 chronic kidney disease, unspecified whether stage 3a or 3b CKD (HCC) - ICD9: 585.3, ICD10: N18.30 - BASIC METABOLIC PNL 4. Hypothyroidism, unspecified type - ICD9: 244.9, ICD10: E03.9 - follow progress. - TSH BLD 5. Hyperlipidemia with target LDL less than 100 - ICD9: 272.4, ICD10: E78.5 - TSH BLD - LIPID PANEL BASIC 6. Hypertensive kidney disease with stage 3 chronic kidney disease, unspecified whether stage 3a or3b CKD (HCC) - ICD9: 403.90, 585.3, ICD10: I12.9, N18.30 - stable. 7. Cancer of oral cavity (HCC) - ICD9: 145.9, ICD10: C06.9 - per ENT Los Davenport RTO in six months and prn. documented in this encounterTr[facility]ull [facility]05-09-2022 Nurse Note* GITA Arce - 12/02/2021 2:49 PM EDT Tobacco Use: 1 packs/day, for 20 years. Quit 06/14/1988. Types: Cigarettes Was smoking cessation packet given? N/A - Patient is a non-smoker or quit >1 year ago. 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 Valle and right fibular free flap reconstruction of the mandibular defect with Dr. Alcaraz on 01/22/21. Patient then underwent planned delayed skin grafting ofthe right lower extremity over the Integra wound bed using STSG from the right thigh on 02/21/21, who presents for oncologic surveillance. Ms. Tomlinson reports that she has been doing well since previous visit. She has had no new locoregional symptoms. Current Outpatient Medications Medication Sig Dispense Refill levothyroxine (LEVOXYL) 88 mcg tablet Take 1 tablet by mouth once daily. Take on empty stomach. ForThyroid 90 tablet 0 linaGLIPtin (TRADJENTA) 5 mg tab Take 1 tablet by mouth once daily. 30 tablet 5 triamterene-hydroCHLOROthiazide (MAXZIDE) 75-50 mg per tablet Take 1 tablet by mouth once daily. 30tablet 5 pravastatin (PRAVACHOL) 20 mg tablet Take 1 tablet by mouth daily at bedtime. 90 tablet 3 doxycycline monohydrate (MONODOX) 100 mg capsule Take 1 capsule by mouth twice daily. (Patient not taking: Reported on 07/01/2021 ) 20 capsule 0 metFORMIN (GLUCOPHAGE) 500 mg tablet Take 1 tablet by mouth twice daily with meals. 180 tablet 3 B6/folic/B12/coffee/phosphatid (NEURIVA PLUS ORAL) Take 1 tablet by mouth once daily. ibuprofen (ADVIL) 200 mg tablet Take 200 mg by mouth every 6 hours as needed for pain. guaiFENesin (ROBITUSSIN) 100 mg/5 mL syrup Take 5 mL by mouth every 6 hours as needed for cough. (Patient not taking: Reported on 07/01/2021 ) iv contrast (will be provided with radiology test) CT Chest W -Inject, intravenously, once for 1 dose.No IV access, insert saline lock prior to the beginning of sedation, infusion, injection of imaging exam. Discontinue saline lock post exam. If Pt. has a central line or IVAD, may access for administration according to line specific nursing protocol. Once exam is complete flush line and de-accessaccording to line specific nursing protocol in the CT contrast administration guidelines link. (Patient not taking: Reported on 08/26/2021 ) 1 Each 0 losartan (COZAAR) 25 mg tablet Take 1 tablet by mouth once daily. 90 tablet 3 blood sugar diagnostic (BLOOD GLUCOSE TEST) test strip One Touch Test strips Test blood sugar(s) 1 times daily. Dx: E11.9 Insulin:No 50 Strip 11 blood sugar diagnostic (ACCU-CHEK ADRIANA PLUS TEST STRP) test strip Test blood sugar(s) 1 times daily. Dx: E11.9. Insulin: No 50 Strip 11 Lancets (ACCU-CHEK SOFTCLIX LANCETS) lancets Test blood sugar(s) 1 times daily. Dx: Type 2 DM - Controlled E11.9 Insulin: No 100 Each 11 lansoprazole (PREVACID) 15 mg capsule Take 1 capsule by mouth daily before breakfast. 1/2 hr beforemeal. 30 capsule 5 Biotin 1 mg ORAL Tab Take 1 tablet by mouth once daily. 0 No current facility-administered medications for this visit. EXAM: Constitutional - General Appearance: well developed, well nourished, without obvious deformities Communication: speaks with a normal voice without hoarseness Head & Face - Overall: no obvious scars, lesions or masses Parotid and submandibular glands: no masses or tenderness Facial strength: Facial nerve intact. Normal and equal bilaterally Ear, Nose, Mouth & Throat - Ears: both left and right external auditory canals and TM's are normal. No external deformities. Nasal exam: mucosa is pink, septum is midline, visible turbinates are normal on anterior rhinoscopy. No external deformities. Mastication: teeth appear age-appropriate Oral Cavity and oropharynx: Well-integrated flap. Mucosa, hard and soft palates, tongue, tonsil area, posterior pharyngeal wall, lips and gums are without lesions Larynx: Vocal cords normal with normal mobility, BOT without lesions. Neck: Bilateral neck scars well-healed. 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 Valle and right fibular free flap reconstruction of the mandibular defect with Dr. Alcaraz on 01/22/21. Patient then underwent planned delayed skin grafting of the right lower extremity over the Integra wound bed using STSG from the right thigh on 02/21/21. On exam today, Ms. Tomlinson is doing well and there is no evidence of recurring or new disease process. PLAN AND RECOMMENDATIONS: 1. No contraindication to air travel in March 2. Follow up in 3-4 months Medical Decision Making Lev Valle MD Scribe Attestation: By signing my name below, I, Armen Ramirez, attest that this documentation has been prepared under the direction and in the presence of Lev Valle MD. Electronically Signed: jacquie Mercedes, December 02, 2021 2:38 PM December 03, 2021 I participated in the history and physical exam of Nickie Tomlinson. I discussed the management of Nickie Tomlinson . I reviewed the note and agree with the documented findings and plan of care. Lev Valle MD [facility] History of Present illness Narrative* Jacob Joyce Pss - 11/13/2021 1:11 PM EDT POPULATION HEALTH NAVIGATION OUTREACH Action/FYI: [employer] Care Gaps Discuss/Due: Advance Directives Breast Cancer Screening Dilated Retinal Exam 06/14/22 or after Outcome: Left message on voice mail and sent Academicat message. Pt identified by name and : NO Outreach Outcome/Action Unable to reach patient: Left message MyChart message sent Reason for Outreach Care Gap or Scheduling/Wellness visits Payer: Payor: [employer] MEDICARE / Plan: [employer] MEDICARE PPO / Product Type: PPO / Care Gap Reviewed:: Breast Cancer screening Diabetic Eye Exam Reminder: Reminder note to check Health Maintenance for items below Health Maintenance items due: SHINGRIX VACCINE(1 of 2) Never done DEPRESSION SCREENING due on 02/19/2018 URINE ALBUMIN:CREATININE RATIO due on 07/26/2021 ADVANCE DIRECTIVE DISCUSSION Never done DIABETIC FOOT EXAM due on 08/01/2021 MAMMOGRAM due on 08/06/2021 Message Sent to Practice: No Navigation Signature: Jacob Joyce Population Health Navigator November 13, 2021 1:11 PM documented in this encounter[facility]04[facility] Miscellaneous Notes* Telephone Encounter - Jenelle Bower Ma - 10/29/2021 2:21 PM EDT Last office visit: 06/10/21 F/u scheduled: 12/09/21 Jenelle Bower Ma * Telephone Encounter - Tung Paez - 10/29/2021 2:18 PM EDT Patient has been identified by name and date of : Yes Pending Prescriptions Disp Refills LEVOTHYROXINE 88 MCG TABLET 90 tablet 0 Sig: Take 1 tablet by mouth once daily. Take on empty stomach. For Thyroid MAGUE: No TRADJENTA 5 MG TABLET 30 tablet 5 Sig: Take 1 tablet by mouth once daily. MAGUE: No RX INSTRUCTIONS: Patient aware RX will be sent to pharmacy. No need to notify patient. Tung Paez documented in this encounterTr[facility]12[facility] NoteHNO ID: [id number] Author: Whitney Isaac APRN.VEGETABLE FARMWORKER Service: ? 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 She complete the course of Doxycycline for positive wound culture done last visit on 06/13/2021. She has assistance of [facility] for wound care at home. She is accompanied by her for the clinic visit today. Location: right lateral lower leg Onset: 02/21/2021 Aggravating factors: Diabetes mellitus, Edema and Surgical Wound etiology: Surgical Associated pain with wound: No Relieving factors for wound pain: n/a Treatments: Current: silver gel, Adaptic Past: Promogran, collagen gel, Xeroform, Aquaphor PAST MEDICAL HISTORY Diagnosis Date - Diabetes mellitus, type 2 (HCC) 2011 - Diverticulosis of colon (without mention of hemorrhage) - DVT (deep venous thrombosis) (HCC) 2001 bilateral leg DVT during chemo/radiation - GERD (gastroesophageal reflux disease) Hx ulcer - Hypertension - Hypothyroidism 2001 - Malignant neoplasm of base of tongue (HCC) 2001 - Osteoarthritis - 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, s/p resection, chemo, and radiation - Secondary and unspecified malignant neoplasm of lymph nodes of head, face, and neck 2001 PAST SURGICAL HISTORY Procedure Laterality Date - COLONOSCOP W/ OR W/O [facility] SPEC 06/26/2009 repeat due 2019 - JOINT REPLACEMENT HX - PAST SURGICAL HISTORY OF 08/09/2001 Direct laryngoscopy with multiple right base of tongue biopsies - PAST SURGICAL HISTORY OF 02/07/2002 Right complete cervical lymphadenectomy - PAST SURGICAL HISTORY OF ~ hysterectomy, non-ca - PAST SURGICAL HISTORY OF knee surgery left x 3 - TOTAL KNEE REPLACEMENT 09/2010, 05/2010 left and right - TRACHEOSTOMY PLANNED 2020 - VAGINAL HYSTERECTOMY ALLERGIES ALLERGIES Allergen Reactions - Celery Other: See Comments Migraine - Lisinopril Cough CURRENT OUTPATIENT MEDICATIONS metFORMIN (GLUCOPHAGE) 500 mg tablet Take 1 tablet by mouth twice daily with meals. B6/folic/B12/coffee/phosphatid (NEURIVA PLUS ORAL) Take 1 tablet by mouth once daily. linaGLIPtin (TRADJENTA) 5 mg tab Take 1 tablet by mouth once daily. levothyroxine (LEVOXYL) 88 mcg tablet Take 1 tablet by mouth once daily. Take on empty stomach. For Thyroid triamterene-hydroCHLOROthiazide (MAXZIDE) 75-50 mg per tablet Take 1 tablet by mouth once daily. ibuprofen (ADVIL) 200 mg tablet Take 200 mg by mouth every 6 hours as needed for pain. coffee xt/phosphatidyl serine (NEURIVA ORIGINAL ORAL) 1 capsule by CORPAK route once daily. NOT TAKING losartan (COZAAR) 25 mg tablet Take 1 tablet by mouth once daily. blood sugar diagnostic (BLOOD GLUCOSE TEST) test strip One Touch Test strips Test blood sugar(s) 1 times daily. Dx: E11.9 Insulin:No blood sugar diagnostic (ACCU-CHEK ADRIANA PLUS TEST STRP) test strip Test blood sugar(s) 1 times daily. Dx: E11.9. Insulin: No Lancets (ACCU-CHEK SOFTCLIX LANCETS) lancets Test blood sugar(s) 1 times daily. Dx: Type 2 DM - Controlled E11.9 Insulin: No pravastatin (PRAVACHOL) 20 mg tablet Take 1 tablet by mouth daily at bedtime. lansoprazole (PREVACID) 15 mg capsule Take 1 capsule by mouth daily before breakfast. 1/2 hr before meal. Biotin 1 mg ORAL Tab Take 1 tablet by mouth once daily. doxycycline monohydrate (MONODOX) 100 mg capsule Take 1 capsule by mouth twice daily. [DISCONTINUED] pantoprazole (PROTONIX) 40 mg/20 mL oral liquid Take 20 mL by mouth DAILY (6 AM). guaiFENesin (ROBITUSSIN) 100 mg/5 mL syrup Take 5 mL by mouth every 6 hours as needed for cough. iv contrast (will be provided with radiology test) CT Chest W -Inject, intravenously, once for 1 dose.No IV access, insert saline lock prior to the beginning of sedation, infusion, injection of imaging exam. Discontinue saline lock post exam. If Pt. has a central line or IVAD, may access for administration according to line specific nursing protocol. Once exam is complete flush line and de-access according to line specific nursing protocol in the CT contrast administration guidelines link. FAMILY HIS (more content not included)...[facility] [id number] NoteHNO ID: [id number] Author: Whitney Isaac APRN.VEGETABLE FARMWORKER Service: ? 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 She has assistance of [facility] for wound care at home. She is accompanied by her for the clinic visit today. Pt reports she has some skin irritation from the adhesive dressing so they went back to using a gauze wrap to cover the wounds. Location: right lateral lower leg Onset: 02/21/2021 Aggravating factors: Diabetes mellitus, Edema and Surgical Wound etiology: Surgical Associated pain with wound: No Relieving factors for wound pain: n/a Treatments: Current: Promogran Past: collagen gel, Xeroform, Aquaphor PAST MEDICAL HISTORY Diagnosis Date - Diabetes mellitus, type 2 (HCC) 2011 - Diverticulosis of colon (without mention of hemorrhage) - DVT (deep venous thrombosis) (HCC) 2001 bilateral leg DVT during chemo/radiation - GERD (gastroesophageal reflux disease) Hx ulcer - Hypertension - Hypothyroidism 2001 - Malignant neoplasm of base of tongue (HCC) 2001 - Osteoarthritis - Personal history of malignant neoplasm of tongue 2001 SCC, s/p resection, chemo, and radiation - Secondary and unspecified malignant neoplasm of lymph nodes of head, face, and neck 2001 PAST SURGICAL HISTORY Procedure Laterality Date - COLONOSCOP W/ OR W/O [facility] SPEC 06/26/2009 repeat due 2019 - JOINT REPLACEMENT HX - PAST SURGICAL HISTORY OF 08/09/2001 Direct laryngoscopy with multiple right base of tongue biopsies - PAST SURGICAL HISTORY OF 02/07/2002 Right complete cervical lymphadenectomy - PAST SURGICAL HISTORY OF ~ hysterectomy, non-ca - PAST SURGICAL HISTORY OF knee surgery left x 3 - TOTAL KNEE REPLACEMENT 09/2010, 05/2010 left and right - TRACHEOSTOMY PLANNED 2020 - VAGINAL HYSTERECTOMY ALLERGIES ALLERGIES Allergen Reactions - Celery Other: See Comments Migraine - Lisinopril Cough CURRENT OUTPATIENT MEDICATIONS metFORMIN (GLUCOPHAGE) 500 mg tablet Take 1 tablet by mouth twice daily with meals. B6/folic/B12/coffee/phosphatid (NEURIVA PLUS ORAL) Take 1 tablet by mouth once daily. linaGLIPtin (TRADJENTA) 5 mg tab Take 1 tablet by mouth once daily. levothyroxine (LEVOXYL) 88 mcg tablet Take 1 tablet by mouth once daily. Take on empty stomach. For Thyroid triamterene-hydroCHLOROthiazide (MAXZIDE) 75-50 mg per tablet Take 1 tablet by mouth once daily. ibuprofen (ADVIL) 200 mg tablet Take 200 mg by mouth every 6 hours as needed for pain. [DISCONTINUED] pantoprazole (PROTONIX) 40 mg/20 mL oral liquid Take 20 mL by mouth DAILY (6 AM). guaiFENesin (ROBITUSSIN) 100 mg/5 mL syrup Take 5 mL by mouth every 6 hours as needed for cough. iv contrast (will be provided with radiology test) CT Chest W -Inject, intravenously, once for 1 dose.No IV access, insert saline lock prior to the beginning of sedation, infusion, injection of imaging exam. Discontinue saline lock post exam. If Pt. has a central line or IVAD, may access for administration according to line specific nursing protocol. Once exam is complete flush line and de-access according to line specific nursing protocol in the CT contrast administration guidelines link. coffee xt/phosphatidyl serine (NEURIVA ORIGINAL ORAL) 1 capsule by CORPAK route once daily. NOT TAKING losartan (COZAAR) 25 mg tablet Take 1 tablet by mouth once daily. blood sugar diagnostic (BLOOD GLUCOSE TEST) test strip One Touch Test strips Test blood sugar(s) 1 times daily. Dx: E11.9 Insulin:No blood sugar diagnostic (ACCU-CHEK ADRIANA PLUS TEST STRP) test strip Test blood sugar(s) 1 times daily. Dx: E11.9. Insulin: No Lancets (ACCU-CHEK SOFTCLIX LANCETS) lancets Test blood sugar(s) 1 times daily. Dx: Type 2 DM - Controlled E11.9 Insulin: No pravastatin (PRAVACHOL) 20 mg tablet Take 1 tablet by mouth daily at bedtime. lansoprazole (PREVACID) 15 mg capsule Take 1 capsule by mouth daily before breakfast. 1/2 hr before meal. Biotin 1 mg ORAL Tab Take 1 tablet by mouth once daily. FAMILY HISTORY Problem Relation Age of Onset - Emphysema Father - Hypertension Mot (more content not included)...[facility] [id number] History of Past illness Narrative* Problem Noted Date Resolved Date Ulcer of right leg, with fat layer exposed 06/0612/09/2021 Severe protein-calorie malnutrition 01/23/2021 12/09/2021 Last Assessment & Plan: Assessment: [place] PLAN: TF, nutrition evalvalentino teaching Neck mass 01/17/2021 12/09/2021 Pain in left shoulder 06/29/2015 02/19/2017 Type II or unspecified type diabetes mellitus without mention of complication, not stated as uncontrolled 04/26/2012 Radiotherapy follow-up examination 06/14/2004 02/19/2017 Chemotherapy follow-up examination 06/14/2004 07/23/2017 Follow-up examination, following unspecified calr dwayne 06/14/2004 10/08/2015 Malignant neoplasm of base of tongue 06/14/2004 06/06/2021 Overview: Released by ENT, only has to follow up if any more issues. documented as of this encounter (statuses as of 12/09/2021) [facility] of Past illness Narrative* Problem Noted Date Resolved Date Ulcer of right leg, with fat layer exposed 06/0612/09/2021 Severe protein-calorie malnutrition 01/23/2021 12/09/2021 Last Assessment & Plan: Assessment: [place] PLAN: TF, nutrition eval hen teaching Neck mass 01/17/2021 12/09/2021 Pain in left shoulder 06/29/2015 02/19/2017 Type II or unspecified type diabetes mellitus without mention of complication, not stated as uncontrolled 04/26/2012 Radiotherapy follow-up examination 06/14/2004 02/19/2017 Chemotherapy follow-up examination 06/14/2004 07/23/2017 Follow-up examination, following unspecified carl dwayne 06/14/2004 10/08/2015 Malignant neoplasm of base of tongue 06/14/2004 06/06/2021 Overview: Released by ENT, only has to follow up if any more issues. documented as of this encounter (statuses as of 12/26/2021) [facility] of Past illness Narrative* Problem Noted Date Resolved Date Ulcer of right leg, with fat layer exposed 06/0612/09/2021 Severe protein-calorie malnutrition 01/23/2021 12/09/2021 Last Assessment & Plan: Assessment: [place] PLAN: TF, nutrition eval, hen teaching Neck mass 01/17/2021 12/09/2021 Pain in left shoulder 06/29/2015 02/19/2017 Type II or unspecified type diabetes mellitus without mention of complication, not stated as uncontrolled 04/26/2012 Radiotherapy follow-up examination 06/14/2004 02/19/2017 Chemotherapy follow-up examination 06/14/2004 07/23/2017 Follow-up examination, following unspecified carl dwayne 06/14/2004 10/08/2015 Malignant neoplasm of base of tongue 06/14/2004 06/06/2021 Overview: Released by ENT, only has to follow up if any more issues. documented as of this encounter (statuses as of 01/24/2022) [facility] of [facility] illness Narrative* Problem Noted Date Resolved Date Ulcer of right leg, with fat layer exposed 06/0612/09/2021 Severe protein-calorie malnutrition 01/23/2021 12/09/2021 Last Assessment & Plan: Assessment: [place]ak PLAN: TF, nutrition eval, hen teaching Neck mass 01/17/2021 12/09/2021 Pain in left shoulder 06/29/2015 02/19/2017 Type II or unspecified type diabetes mellitus without mention of complication, not stated as uncontrolled 04/26/2012 Radiotherapy follow-up examination 06/14/2004 02/19/2017 Chemotherapy follow-up examination 06/14/2004 07/23/2017 Follow-up examination, following unspecified carl dwayne 06/14/2004 10/08/2015 Malignant neoplasm of base of tongue 06/14/2004 06/06/2021 Overview: Released by ENT, only has to follow up if any more issues. documented as of this encounter (statuses as of 03/18/2022) [facility] of [facility] illness Narrative* Problem Noted Date Resolved Date Ulcer of right leg, with fat layer exposed 06/0612/09/2021 Severe protein-calorie malnutrition 01/23/2021 12/09/2021 Last Assessment & Plan: Assessment: [place]ak PLAN: TF, nutrition eval, hen teaching Neck mass 01/17/2021 12/09/2021 Pain in left shoulder 06/29/2015 02/19/2017 Type II or unspecified type diabetes mellitus without mention of complication, not stated as uncontrolled 04/26/2012 Radiotherapy follow-up examination 06/14/2004 02/19/2017 Chemotherapy follow-up examination 06/14/2004 07/23/2017 Follow-up examination, following unspecified carl dwayne 06/14/2004 10/08/2015 Malignant neoplasm of base of tongue 06/14/2004 06/06/2021 Overview: Released by ENT, only has to follow up if any more issues. documented as of this encounter (statuses as of 03/26/2022) [facility] Narrative* Problem Noted Date Resolved Date Ulcer of right leg, with fat layer exposed 06/0612/09/2021 Severe protein-calorie malnutrition 01/23/2021 12/09/2021 Last Assessment & Plan: Assessment: [place]ak PLAN: TF, nutrition eval, hen teaching Neck mass 01/17/2021 12/09/2021 Pain in left shoulder 06/29/2015 02/19/2017 Type II or unspecified type diabetes mellitus without mention of complication, not stated as uncontrolled 04/26/2012 Radiotherapy follow-up examination 06/14/2004 02/19/2017 Chemotherapy follow-up examination 06/14/2004 07/23/2017 Follow-up examination, following unspecified carl dwayne 06/14/2004 10/08/2015 Malignant neoplasm of base of tongue 06/14/2004 06/06/2021 Overview: Released by ENT, only has to follow up if any more issues. documented as of this encounter (statuses as of 05/20/2022) [facility] Narrative* Problem Noted Date Resolved Date Ulcer of right leg, with fat layer exposed 06/0612/09/2021 Severe protein-calorie malnutrition 01/23/2021 12/09/2021 Last Assessment & Plan: Assessment: [place] PLAN: TF, nutrition eval, hen teaching Neck mass 01/17/2021 12/09/2021 Stage 3 chronic kidney disease 10/31/2020 1 08/18/2021 Last Assessment & Plan: Assessment: stable PLAN: labs, no nephrotoxic meds, monitor I&O Pain in left shoulder 06/29/2015 02/19/2017 Type II or unspecified type diabetes mellitus without mention of complication, not stated as uncontrolled 04/26/2012 Knee pain 02/18/2011 06/18/2022 Radiotherapy follow-up examination 06/14/2004 02/19/2017 Chemotherapy follow-up examination 06/14/2004 07/23/2017 Follow-up examination, following unspecified carl dwayne 06/14/2004 10/08/2015 Malignant neoplasm of base of tongue 06/14/2004 06/06/2021 Overview: Released by ENT, only has to follow up if any more issues. documented as of this encounter (statuses as of 06/18/2022) [facility] Narrative* Problem Noted Date Resolved Date Ulcer of right leg, with fat layer exposed 06/0612/09/2021 Severe protein-calorie malnutrition 01/23/2021 12/09/2021 Last Assessment & Plan: Assessment: [place] PLAN: TF, nutrition valentino hodgson teaching Neck mass 01/17/2021 12/09/2021 Stage 3 chronic kidney disease 10/31/2020 1 08/18/2021 Last Assessment & Plan: Assessment: stable PLAN: labs, no nephrotoxic meds, monitor I&O Pain in left shoulder 06/29/2015 02/19/2017 Type II or unspecified type diabetes mellitus without mention of complication, not stated as uncontrolled 04/26/2012 Knee pain 02/18/2011 06/18/2022 Radiotherapy follow-up examination 06/14/2004 02/19/2017 Chemotherapy follow-up examination 06/14/2004 07/23/2017 Follow-up examination, following unspecified carl dwayne 06/14/2004 10/08/2015 Malignant neoplasm of base of tongue 06/14/2004 06/06/2021 Overview: Released by ENT, only has to follow up if any more issues. documented as of this encounter (statuses as of 07/31/2022) [facility] Narrative* Problem Noted Date Resolved Date Ulcer of right leg, with fat layer exposed 06/0612/09/2021 Severe protein-calorie malnutrition 01/23/2021 12/09/2021 Last Assessment & Plan: Assessment: [place] PLAN: TF, nutrition evvalentino galicia teaching Neck mass 01/17/2021 12/09/2021 Stage 3 chronic kidney disease 10/31/2020 1 08/18/2021 Last Assessment & Plan: Assessment: stable PLAN: labs, no nephrotoxic meds, monitor I&O Pain in left shoulder 06/29/2015 02/19/2017 Type II or unspecified type diabetes mellitus without mention of complication, not stated as uncontrolled 04/26/2012 Knee pain 02/18/2011 06/18/2022 Radiotherapy follow-up examination 06/14/2004 02/19/2017 Chemotherapy follow-up examination 06/14/2004 07/23/2017 Follow-up examination, following unspecified carl dwayne 06/14/2004 10/08/2015 Malignant neoplasm of base of tongue 06/14/2004 06/06/2021 Overview: Released by ENT, only has to follow up if any more issues. documented as of this encounter (statuses as of 08/04/2022) [facility] Narrative* Problem Noted Date Resolved Date Ulcer of right leg, with fat layer exposed 06/0612/09/2021 Severe protein-calorie malnutrition 01/23/2021 12/09/2021 Last Assessment & Plan: Assessment: [place] PLAN: TF, nutrition eval, hen teaching Neck mass 01/17/2021 12/09/2021 Stage 3 chronic kidney disease 10/31/2020 1 08/18/2021 Last Assessment & Plan: Assessment: stable PLAN: labs, no nephrotoxic meds, monitor I&O Pain in left shoulder 06/29/2015 02/19/2017 Type II or unspecified type diabetes mellitus without mention of complication, not stated as uncontrolled 04/26/2012 Knee pain 02/18/2011 06/18/2022 Radiotherapy follow-up examination 06/14/2004 02/19/2017 Chemotherapy follow-up examination 06/14/2004 07/23/2017 Follow-up examination, following unspecified carl dwayne 06/14/2004 10/08/2015 Malignant neoplasm of base of tongue 06/14/2004 06/06/2021 Overview: Released by ENT, only has to follow up if any more issues. documented as of this encounter (statuses as of 10/15/2022) [facility] Narrative* Problem Noted Date Resolved Date Ulcer of right leg, with fat layer exposed 06/0612/09/2021 Severe protein-calorie malnutrition 01/23/2021 12/09/2021 Last Assessment & Plan: Assessment: [place] PLAN: TF, nutrition valentino hodgson teaching Neck mass 01/17/2021 12/09/2021 Stage 3 chronic kidney disease 10/31/2020 1 08/18/2021 Last Assessment & Plan: Assessment: stable PLAN: labs, no nephrotoxic meds, monitor I&O Pain in left shoulder 06/29/2015 02/19/2017 Type II or unspecified type diabetes mellitus without mention of complication, not stated as uncontrolled 04/26/2012 Knee pain 02/18/2011 06/18/2022 Radiotherapy follow-up examination 06/14/2004 02/19/2017 Chemotherapy follow-up examination 06/14/2004 07/23/2017 Follow-up examination, following unspecified carl dwayne 06/14/2004 10/08/2015 Malignant neoplasm of base of tongue 06/14/2004 06/06/2021 Overview: Released by ENT, only has to follow up if any more issues. documented as of this encounter (statuses as of 10/20/2022) [facility] Narrative* Problem Noted Date Resolved Date Ulcer of right leg, with fat layer exposed 06/0612/09/2021 Severe protein-calorie malnutrition 01/23/2021 12/09/2021 Last Assessment & Plan: Assessment: [place] PLAN: TF, nutrition valentino hodgson teaching Neck mass 01/17/2021 12/09/2021 Stage 3 chronic kidney disease 10/31/2020 1 08/18/2021 Last Assessment & Plan: Assessment: stable PLAN: labs, no nephrotoxic meds, monitor I&O Pain in left shoulder 06/29/2015 02/19/2017 Type II or unspecified type diabetes mellitus without mention of complication, not stated as uncontrolled 04/26/2012 Knee pain 02/18/2011 06/18/2022 Radiotherapy follow-up examination 06/14/2004 02/19/2017 Chemotherapy follow-up examination 06/14/2004 07/23/2017 Follow-up examination, following unspecified carl dwayne 06/14/2004 10/08/2015 Malignant neoplasm of base of tongue 06/14/2004 06/06/2021 Overview: Released by ENT, only has to follow up if any more issues. documented as of this encounter (statuses as of 11/21/2022) [facility]11-11-2021 History of Past illness Narrative* Problem Noted Date Resolved Date Ulcer of right leg, with fat layer exposed 06/0612/09/2021 Severe protein-calorie malnutrition 01/23/2021 12/09/2021 Last Assessment & Plan: Assessment: [place] PLAN: TF, nutrition eval, hen teaching Neck mass 01/17/2021 12/09/2021 Stage 3 chronic kidney disease 10/31/2020 1 08/18/2021 Last Assessment & Plan: Assessment: stable PLAN: labs, no nephrotoxic meds, monitor I&O Pain in left shoulder 06/29/2015 02/19/2017 Type II or unspecified type diabetes mellitus without mention of complication, not stated as uncontrolled 04/26/2012 Knee pain 02/18/2011 06/18/2022 Radiotherapy follow-up examination 06/14/2004 02/19/2017 Chemotherapy follow-up examination 06/14/2004 07/23/2017 Follow-up examination, following unspecified carl dwayne 06/14/2004 10/08/2015 Malignant neoplasm of base of tongue 06/14/2004 06/06/2021 Overview: Released by ENT, only has to follow up if any more issues. documented as of this encounter (statuses as of 11/22/2022) [facility]11-11-2021 History of Past illness Narrative* Problem Noted Date Resolved Date Ulcer of right leg, with fat layer exposed 06/0612/09/2021 Severe protein-calorie malnutrition 01/23/2021 12/09/2021 Last Assessment & Plan: Assessment: [place] PLAN: TF, nutrition eval, hen teaching Neck mass 01/17/2021 12/09/2021 Stage 3 chronic kidney disease 10/31/2020 1 08/18/2021 Last Assessment & Plan: Assessment: stable PLAN: labs, no nephrotoxic meds, monitor I&O Pain in left shoulder 06/29/2015 02/19/2017 Type II or unspecified type diabetes mellitus without mention of complication, not stated as uncontrolled 04/26/2012 Knee pain 02/18/2011 06/18/2022 Radiotherapy follow-up examination 06/14/2004 02/19/2017 Chemotherapy follow-up examination 06/14/2004 07/23/2017 Follow-up examination, following unspecified carl dwayne 06/14/2004 10/08/2015 Malignant neoplasm of base of tongue 06/14/2004 06/06/2021 Overview: Released by ENT, only has to follow up if any more issues. documented as of this encounter (statuses as of 12/01/2022) [facility]11-11-2021 History of Past illness Narrative* Problem Noted Date Resolved Date Ulcer of right leg, with fat layer exposed 06/0612/09/2021 Severe protein-calorie malnutrition 01/23/2021 12/09/2021 Last Assessment & Plan: Assessment: [place] PLAN: TF, nutrition evalvalentino teaching Neck mass 01/17/2021 12/09/2021 Stage 3 chronic kidney disease 10/31/2020 1 08/18/2021 Last Assessment & Plan: Assessment: stable PLAN: labs, no nephrotoxic meds, monitor I&O Pain in left shoulder 06/29/2015 02/19/2017 Type II or unspecified type diabetes mellitus without mention of complication, not stated as uncontrolled 04/26/2012 Knee pain 02/18/2011 06/18/2022 Radiotherapy follow-up examination 06/14/2004 02/19/2017 Chemotherapy follow-up examination 06/14/2004 07/23/2017 Follow-up examination, following unspecified carl dwayne 06/14/2004 10/08/2015 Malignant neoplasm of base of tongue 06/14/2004 06/06/2021 Overview: Released by ENT, only has to follow up if any more issues. documented as of this encounter (statuses as of 12/26/2022) [facility]11-11-2021 History of Past illness Narrative* Problem Noted Date Resolved Date Ulcer of right leg, with fat layer exposed 06/0612/09/2021 Severe protein-calorie malnutrition 01/23/2021 12/09/2021 Last Assessment & Plan: Assessment: [place] PLAN: TF, nutrition eval, hen teaching Neck mass 01/17/2021 12/09/2021 Stage 3 chronic kidney disease 10/31/2020 1 08/18/2021 Last Assessment & Plan: Assessment: stable PLAN: labs, no nephrotoxic meds, monitor I&O Pain in left shoulder 06/29/2015 02/19/2017 Type II or unspecified type diabetes mellitus without mention of complication, not stated as uncontrolled 04/26/2012 Knee pain 02/18/2011 06/18/2022 Radiotherapy follow-up examination 06/14/2004 02/19/2017 Chemotherapy follow-up examination 06/14/2004 07/23/2017 Follow-up examination, following unspecified carl dwayne 06/14/2004 10/08/2015 Malignant neoplasm of base of tongue 06/14/2004 06/06/2021 Overview: Released by ENT, only has to follow up if any more issues. documented as of this encounter (statuses as of 12/29/2022) [facility]11-11-2021 History of Past illness Narrative* Problem Noted Date Resolved Date Ulcer of right leg, with fat layer exposed 06/0612/09/2021 Oxygen desaturation during sleep 01/29/2021 12/31/2022 Last Assessment & Plan: Assessment: post op PLAN: plan desat. study for home O2 determination Severe protein-calorie malnutrition 01/23/2021 12/09/2021 Last Assessment & Plan: Assessment: [place] PLAN: TF, nutrition eval, hen teaching Neck mass 01/17/2021 12/09/2021 Stage 3 chronic kidney disease 10/31/2020 1 08/18/2021 Last Assessment & Plan: Assessment: stable PLAN: labs, no nephrotoxic meds, monitor I&O Pain in left shoulder 06/29/2015 02/19/2017 Type II or unspecified type diabetes mellitus without mention of complication, not stated as uncontrolled 04/26/2012 Knee pain 02/18/2011 06/18/2022 Radiotherapy follow-up examination 06/14/2004 02/19/2017 Chemotherapy follow-up examination 06/14/2004 07/23/2017 Follow-up examination, following unspecified carl dwayne 06/14/2004 10/08/2015 Malignant neoplasm of base of tongue 06/14/2004 06/06/2021 Overview: Released by ENT, only has to follow up if any more issues. documented as of this encounter (statuses as of 12/31/2022) [facility] History of Past illness Narrative* Problem Noted Date Diagnosed Date Resolved Date Ulcer of right leg, with fat layer exposed 06/06/2021 12/09/2021 Oxygen desaturation during sleep 01/29/2021 12/31/2022 Last Assessment & Plan: Assessment: post op PLAN: plan desat. study for home O2 determination Severe protein-calorie malnutrition 01/23/2021 12/09/2021 Last Assessment & Plan: Assessment: [place] PLAN: TF, nutrition eval, hen teaching Neck mass 01/17/2021 12/09/2021 Stage 3 chronic kidney disease 10/31/2020 06/18/2022 Last Assessment & Plan: Assessment: stable PLAN: labs, no nephrotoxic meds, monitor I&O Pain in left shoulder 06/29/20152016 Type II or unspecified type diabetes mellitus without mention of complication, not stated as uncontrolled 04/26/2012 06/29/2013 Knee pain 02/18/2011 06/18/2022 Radiotherapy follow-up examination 06/14/2004 02/19/2017 Chemotherapy follow-up examination 06/14/2004 07/23/2017 Follow-up examination, follo wing unspecified surgery 06/14/2004 10/08/2015 Malignant neoplasm of base of tongue 06/14/2004 06/06/2021 Overview: Released by ENT, only has to follow up if any more issues. documented as of this encounter (statuses as of 04/03/2023) [facility]11-11-2021 History of Past illness Narrative* Problem Noted Date Diagnosed Date Resolved Date Ulcer of right leg, with fat layer exposed 06/06/2021 12/09/2021 Oxygen desaturation during sleep 01/29/2021 12/31/2022 Last Assessment & Plan: Assessment: post op PLAN: plan desat. study for home O2 determination Severe protein-calorie malnutrition 01/23/2021 12/09/2021 Last Assessment & Plan: Assessment: [place] PLAN: TF, nutrition eval, hen teaching Neck mass 01/17/2021 12/09/2021 Stage 3 chronic kidney disease 10/31/2020 06/18/2022 Last Assessment & Plan: Assessment: stable PLAN: labs, no nephrotoxic meds, monitor I&O Pain in left shoulder 06/29/20152016 Type II or unspecified type diabetes mellitus without mention of complication, not stated as uncontrolled 04/26/2012 06/29/2013 Knee pain 02/18/2011 06/18/2022 Radiotherapy follow-up examination 06/14/2004 02/19/2017 Chemotherapy follow-up examination 06/14/2004 07/23/2017 Follow-up examination, follo wing unspecified surgery 06/14/2004 10/08/2015 Malignant neoplasm of base of tongue 06/14/2004 06/06/2021 Overview: Released by ENT, only has to follow up if any more issues. documented as of this encounter (statuses as of 04/15/2023) [facility]11-11-2021 History of Past illness Narrative* Problem Noted Date Diagnosed Date Resolved Date Ulcer of right leg, with fat layer exposed 06/06/2021 12/09/2021 Oxygen desaturation during sleep 01/29/2021 12/31/2022 Last Assessment & Plan: Assessment: post op PLAN: plan desat. study for home O2 determination Severe protein-calorie malnutrition 01/23/2021 12/09/2021 Last Assessment & Plan: Assessment: [place] PLAN: TF, nutrition eval, hen teaching Neck mass 01/17/2021 12/09/2021 Stage 3 chronic kidney disease 10/31/2020 06/18/2022 Last Assessment & Plan: Assessment: stable PLAN: labs, no nephrotoxic meds, monitor I&O Pain in left shoulder 06/29/20152016 Type II or unspecified type diabetes mellitus without mention of complication, not stated as uncontrolled 04/26/2012 06/29/2013 Knee pain 02/18/2011 06/18/2022 Radiotherapy follow-up examination 06/14/2004 02/19/2017 Chemotherapy follow-up examination 06/14/2004 07/23/2017 Follow-up examination, follo wing unspecified surgery 06/14/2004 10/08/2015 Malignant neoplasm of base of tongue 06/14/2004 06/06/2021 Overview: Released by ENT, only has to follow up if any more issues. documented as of this encounter (statuses as of 06/13/2023) [facility]11-11-20[facility] History of Past illness Narrative* Problem Noted Date Diagnosed Date Resolved Date Ulcer of right leg, with fat layer exposed 06/06/2021 12/09/2021 Oxygen desaturation during sleep 01/29/2021 12/31/2022 Last Assessment & Plan: Assessment: post op PLAN: plan desat. study for home O2 determination Severe protein-calorie malnutrition 01/23/2021 12/09/2021 Last Assessment & Plan: Assessment: [place] PLAN: TF, nutrition eval, hen teaching Neck mass 01/17/2021 12/09/2021 Stage 3 chronic kidney disease 10/31/2020 06/18/2022 Last Assessment & Plan: Assessment: stable PLAN: labs, no nephrotoxic meds, monitor I&O Pain in left shoulder 06/29/20152016 Type II or unspecified type diabetes mellitus without mention of complication, not stated as uncontrolled 04/26/2012 06/29/2013 Knee pain 02/18/2011 06/18/2022 Radiotherapy follow-up examination 06/14/2004 02/19/2017 Chemotherapy follow-up examination 06/14/2004 07/23/2017 Follow-up examination, follo wing unspecified surgery 06/14/2004 10/08/2015 Malignant neoplasm of base of tongue 06/14/2004 06/06/2021 Overview: Released by ENT, only has to follow up if any more issues. documented as of this encounter (statuses as of 07/02/2023) [facility]11-11-2021 History of Past illness Narrative* Problem Noted Date Diagnosed Date Resolved Date Ulcer of right leg, with fat layer exposed 06/06/2021 12/09/2021 Oxygen desaturation during sleep 01/29/2021 12/31/2022 Last Assessment & Plan: Assessment: post op PLAN: plan desat. study for home O2 determination Severe protein-calorie malnutrition 01/23/2021 12/09/2021 Last Assessment & Plan: Assessment: [place] PLAN: TF, nutrition valentino hodgson teaching Neck mass 01/17/2021 12/09/2021 Stage 3 chronic kidney disease 10/31/2020 06/18/2022 Last Assessment & Plan: Assessment: stable PLAN: labs, no nephrotoxic meds, monitor I&O Pain in left shoulder 06/29/20152016 Type II or unspecified type diabetes mellitus without mention of complication, not stated as uncontrolled 04/26/2012 06/29/2013 Knee pain 02/18/2011 06/18/2022 Radiotherapy follow-up examination 06/14/2004 02/19/2017 Chemotherapy follow-up examination 06/14/2004 07/23/2017 Follow-up examination, follo wing unspecified surgery 06/14/2004 10/08/2015 Malignant neoplasm of base of tongue 06/14/2004 06/06/2021 Overview: Released by ENT, only has to follow up if any more issues. documented as of this encounter (statuses as of 07/02/2023) [facility]11-03-2021 NoteHNO ID: [id number] Author: Whitney Isaac APRN.[employer] Service: ? 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 She has assistance of [facility] for wound care at home. She is accompanied by her for the clinic visit today. Location: right lateral lower leg Onset: 02/21/2021 Aggravating factors: Diabetes mellitus, Edema and Surgical Wound etiology: Surgical Associated pain with wound: No Relieving factors for wound pain: n/a Treatments: Current: collagen gel, Xeroform Past: Aquaphor PAST MEDICAL HISTORY Diagnosis Date - Diabetes mellitus, type 2 (HCC) 2011 - Diverticulosis of colon (without mention of hemorrhage) - DVT (deep venous thrombosis) (HCC) 2001 bilateral leg DVT during chemo/radiation - GERD (gastroesophageal reflux disease) Hx ulcer - Hypertension - Hypothyroidism 2001 - Malignant neoplasm of base of tongue (HCC) 2001 - Osteoarthritis - Personal history of malignant neoplasm of tongue 2001 SCC, s/p resection, chemo, and radiation - Secondary and unspecified malignant neoplasm of lymph nodes of head, face, and neck 2001 PAST SURGICAL HISTORY Procedure Laterality Date [facility] repeat due 2019 - JOINT REPLACEMENT HX - PAST SURGICAL HISTORY OF 08/09/2001 Direct laryngoscopy with multiple right base of tongue biopsies - PAST SURGICAL HISTORY OF 02/07/2002 Right complete cervical lymphadenectomy - PAST SURGICAL HISTORY OF ~ hysterectomy, non-ca - PAST SURGICAL HISTORY OF knee surgery left x 3 - TOTAL KNEE REPLACEMENT 09/2010, 05/2010 left and right - TRACHEOSTOMY PLANNED 2020 - VAGINAL HYSTERECTOMY ALLERGIES ALLERGIES Allergen Reactions - Celery Other: See Comments Migraine - Lisinopril Cough CURRENT OUTPATIENT MEDICATIONS linaGLIPtin (TRADJENTA) 5 mg tab Take 1 tablet by mouth once daily. levothyroxine (LEVOXYL) 88 mcg tablet Take 1 tablet by mouth once daily. Take on empty stomach. For Thyroid triamterene-hydroCHLOROthiazide (MAXZIDE) 75-50 mg per tablet Take 1 tablet by mouth once daily. metFORMIN (GLUCOPHAGE) 500 mg tablet Take 500 mg by mouth twice daily with meals. ibuprofen (ADVIL) 200 mg tablet Take 200 mg by mouth every 6 hours as needed for pain. [DISCONTINUED] pantoprazole (PROTONIX) 40 mg/20 mL oral liquid Take 20 mL by mouth DAILY (6 AM). lactose-reduced food/fiber (ISOSOURCE 1.5 ÁNGEL FEEDING TUBE) 250 mL by CORPAK route four times daily. MEDICAL SUPPLY tube feeds: Isosource 1.5 ( or equivalent) 250 cc 4 times per day with 90 cc water flush pre and post feed guaiFENesin (ROBITUSSIN) 100 mg/5 mL syrup Take 5 mL by mouth every 6 hours as needed for cough. iv contrast (will be provided with radiology test) CT Chest W -Inject, intravenously, once for 1 dose.No IV access, insert saline lock prior to the beginning of sedation, infusion, injection of imaging exam. Discontinue saline lock post exam. If Pt. has a central line or IVAD, may access for administration according to line specific nursing protocol. Once exam is complete flush line and de-access according to line specific nursing protocol in the CT contrast administration guidelines link. coffee xt/phosphatidyl serine (NEURIVA ORIGINAL ORAL) 1 capsule by CORPAK route once daily. NOT TAKING losartan (COZAAR) 25 mg tablet Take 1 tablet by mouth once daily. blood sugar diagnostic (BLOOD GLUCOSE TEST) test strip One Touch Test strips Test blood sugar(s) 1 times daily. Dx: E11.9 Insulin:No blood sugar diagnostic (ACCU-CHEK ADRIANA PLUS TEST STRP) test strip Test blood sugar(s) 1 times daily. Dx: E11.9. Insulin: No Lancets (ACCU-CHEK SOFTCLIX LANCETS) lancets Test blood sugar(s) 1 times daily. Dx: Type 2 DM - Controlled E11.9 Insulin: No pravastatin (PRAVACHOL) 20 mg tablet Take 1 tablet by mouth daily at bedtime. lansoprazole (PREVACID) 15 mg capsule Take 1 capsule by mouth daily before breakfast. 1/2 hr before meal. aspirin, enteric coated (ECOTRIN LOW STRENGTH) 81 mg EC tablet Take 1 tablet by mouth once daily. NOT TAKING OF 01/31/21 Biotin 1 mg ORAL Tab Take (more content not included)...[facility] 05-08-2021 NoteHNO ID: [id number] Author: Whitney Isaac APRN.[employer] Service: ? 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 She has assistance of [facility] for wound care at home. She is accompanied by her for the clinic visit today. Location: right lateral lower leg Onset: 02/21/2021 Aggravating factors: Diabetes mellitus, Edema and Surgical Wound etiology: Surgical Associated pain with wound: No Relieving factors for wound pain: n/a Treatments: Current: collagen gel, Xeroform Past: Aquaphor PAST MEDICAL HISTORY Diagnosis Date - Diabetes mellitus, type 2 (HCC) 2011 - Diverticulosis of colon (without mention of hemorrhage) - DVT (deep venous thrombosis) (HCC) 2001 bilateral leg DVT during chemo/radiation - GERD (gastroesophageal reflux disease) Hx ulcer - Hypertension - Hypothyroidism 2001 - Malignant neoplasm of base of tongue (HCC) 2001 - Osteoarthritis - Personal history of malignant neoplasm of tongue 2001 SCC, s/p resection, chemo, and radiation - Secondary and unspecified malignant neoplasm of lymph nodes of head, face, and neck 2001 PAST SURGICAL HISTORY Procedure Laterality Date - COLONOSCOP W/ OR W/O [facility] SPEC 06/26/2009 repeat due 2019 - JOINT REPLACEMENT HX - PAST SURGICAL HISTORY OF 08/09/2001 Direct laryngoscopy with multiple right base of tongue biopsies - PAST SURGICAL HISTORY OF 02/07/2002 Right complete cervical lymphadenectomy - PAST SURGICAL HISTORY OF ~ hysterectomy, non-ca - PAST SURGICAL HISTORY OF knee surgery left x 3 - TOTAL KNEE REPLACEMENT 09/2010, 05/2010 left and right - TRACHEOSTOMY PLANNED 2020 - VAGINAL HYSTERECTOMY ALLERGIES ALLERGIES Allergen Reactions - Celery Other: See Comments Migraine - Lisinopril Cough CURRENT OUTPATIENT MEDICATIONS linaGLIPtin (TRADJENTA) 5 mg tab Take 1 tablet by mouth once daily. levothyroxine (LEVOXYL) 88 mcg tablet Take 1 tablet by mouth once daily. Take on empty stomach. For Thyroid triamterene-hydroCHLOROthiazide (MAXZIDE) 75-50 mg per tablet Take 1 tablet by mouth once daily. metFORMIN (GLUCOPHAGE) 500 mg tablet Take 500 mg by mouth twice daily with meals. ibuprofen (ADVIL) 200 mg tablet Take 200 mg by mouth every 6 hours as needed for pain. lactose-reduced food/fiber (ISOSOURCE 1.5 ÁNGEL FEEDING TUBE) 250 mL by CORPAK route four times daily. MEDICAL SUPPLY tube feeds: Isosource 1.5 ( or equivalent) 250 cc 4 times per day with 90 cc water flush pre and post feed guaiFENesin (ROBITUSSIN) 100 mg/5 mL syrup Take 5 mL by mouth every 6 hours as needed for cough. iv contrast (will be provided with radiology test) CT Chest W -Inject, intravenously, once for 1 dose.No IV access, insert saline lock prior to the beginning of sedation, infusion, injection of imaging exam. Discontinue saline lock post exam. If Pt. has a central line or IVAD, may access for administration according to line specific nursing protocol. Once exam is complete flush line and de-access according to line specific nursing protocol in the CT contrast administration guidelines link. coffee xt/phosphatidyl serine (NEURIVA ORIGINAL ORAL) 1 capsule by CORPAK route once daily. NOT TAKING losartan (COZAAR) 25 mg tablet Take 1 tablet by mouth once daily. blood sugar diagnostic (BLOOD GLUCOSE TEST) test strip One Touch Test strips Test blood sugar(s) 1 times daily. Dx: E11.9 Insulin:No blood sugar diagnostic (ACCU-CHEK ADRIANA PLUS TEST STRP) test strip Test blood sugar(s) 1 times daily. Dx: E11.9. Insulin: No Lancets (ACCU-CHEK SOFTCLIX LANCETS) lancets Test blood sugar(s) 1 times daily. Dx: Type 2 DM - Controlled E11.9 Insulin: No pravastatin (PRAVACHOL) 20 mg tablet Take 1 tablet by mouth daily at bedtime. lansoprazole (PREVACID) 15 mg capsule Take 1 capsule by mouth daily before breakfast. 1/2 hr before meal. [DISCONTINUED] pantoprazole (PROTONIX) 40 mg/20 mL oral liquid Take 20 mL by mouth DAILY (6 AM). aspirin, enteric coated (ECOTRIN LOW STRENGTH) 81 mg EC tablet Take 1 tablet by mouth once daily. NOT TAKING OF 01/31/21 Biotin 1 mg ORAL Tab Take 1 ta (more content not included)...[facility] 04-24-2021 NoteHNO ID: [id number] Author: Whitney Isaac APRN.[employer] Service: ? 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 She has assistance of [facility] for wound care at home. She is accompanied by her for the clinic visit today. Location: right lateral lower leg Onset: 02/21/2021 Aggravating factors: Diabetes mellitus, Edema and Surgical Wound etiology: Surgical Associated pain with wound: No Relieving factors for wound pain: n/a Treatments: Current: collagen gel, Xeroform Past: Aquaphor PAST MEDICAL HISTORY Diagnosis Date - Diabetes mellitus, type 2 (HCC) 2011 - Diverticulosis of colon (without mention of hemorrhage) - DVT (deep venous thrombosis) (HCC) 2001 bilateral leg DVT during chemo/radiation - GERD (gastroesophageal reflux disease) Hx ulcer - Hypertension - Hypothyroidism 2001 - Malignant neoplasm of base of tongue (HCC) 2001 - Osteoarthritis - 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, s/p resection, chemo, and radiation - Secondary and unspecified malignant neoplasm of lymph nodes of head, face, and neck 2002 PAST SURGICAL HISTORY Procedure Laterality Date - COLONOSCOP W/ OR W/O BRSH SPEC 06/26/2009 repeat due 2019 - JOINT REPLACEMENT HX - PAST SURGICAL HISTORY OF 08/09/2001 Direct laryngoscopy with multiple right base of tongue biopsies - PAST SURGICAL HISTORY OF 02/07/2002 Right complete cervical lymphadenectomy - PAST SURGICAL HISTORY OF ~ hysterectomy, non-ca - PAST SURGICAL HISTORY OF knee surgery left x 3 - TOTAL KNEE REPLACEMENT 09/2010, 05/2010 left and right - TRACHEOSTOMY PLANNED 2020 - VAGINAL HYSTERECTOMY ALLERGIES ALLERGIES Allergen Reactions - Celery Other: See Comments Migraine - Lisinopril Cough CURRENT OUTPATIENT MEDICATIONS triamterene-hydroCHLOROthiazide (MAXZIDE) 75-50 mg per tablet Take 1 tablet by mouth once daily. metFORMIN (GLUCOPHAGE) 500 mg tablet Take 500 mg by mouth twice daily with meals. ibuprofen (ADVIL) 200 mg tablet Take 200 mg by mouth every 6 hours as needed for pain. [DISCONTINUED] pantoprazole (PROTONIX) 40 mg/20 mL oral liquid Take 20 mL by mouth DAILY (6 AM). SITagliptin (JANUVIA) 50 mg tablet 1 tablet by CORPAK route once daily. lactose-reduced food/fiber (ISOSOURCE 1.5 ÁNGEL FEEDING TUBE) 250 mL by CORPAK route four times daily. MEDICAL SUPPLY tube feeds: Isosource 1.5 ( or equivalent) 250 cc 4 times per day with 90 cc water flush pre and post feed guaiFENesin (ROBITUSSIN) 100 mg/5 mL syrup Take 5 mL by mouth every 6 hours as needed for cough. iv contrast (will be provided with radiology test) CT Chest W -Inject, intravenously, once for 1 dose.No IV access, insert saline lock prior to the beginning of sedation, infusion, injection of imaging exam. Discontinue saline lock post exam. If Pt. has a central line or IVAD, may access for administration according to line specific nursing protocol. Once exam is complete flush line and de-access according to line specific nursing protocol in the CT contrast administration guidelines link. coffee xt/phosphatidyl serine (NEURIVA ORIGINAL ORAL) 1 capsule by CORPAK route once daily. NOT TAKING losartan (COZAAR) 25 mg tablet Take 1 tablet by mouth once daily. levothyroxine (LEVOXYL) 88 mcg tablet Take 1 tablet by mouth once daily. Take on empty stomach. For Thyroid blood sugar diagnostic (BLOOD GLUCOSE TEST) test strip One Touch Test strips Test blood sugar(s) 1 times daily. Dx: E11.9 Insulin:No blood sugar diagnostic (ACCU-CHEK ADRIANA PLUS TEST STRP) test strip Test blood sugar(s) 1 times daily. Dx: E11.9. Insulin: No Lancets (ACCU-CHEK SOFTCLIX LANCETS) lancets Test blood sugar(s) 1 times daily. Dx: Type 2 DM - Controlled E11.9 Insulin: No pravastatin (PRAVACHOL) 20 mg tablet Take 1 tablet by mouth daily at bedtime. [DISCONTINUED] linaGLIPtin (TRADJENTA) 5 mg tab Take 1 tablet by mouth once daily. lansoprazole (PREVACID) 15 mg capsule Take 1 capsule by mouth daily before breakfast. 1/2 hr before meal. aspirin, enteric coated (ECOTRIN LOW STRENGTH) 81 mg EC tablet Take (more content not included)...[place] [id number] NoteHNO ID: [id number] Author: Whitney Isaac APRN.[employer] Service: ? Author Type: Nurse Practitioner Type: Progress Notes Filed: 04/02/2021 3:51 PM Note Text: WOUND CENTER INITIAL CONSULT PATIENT NAME: Nickie Tomlinson DATE OF CONSULTATION: 04/02/2021 REASON FOR CONSULTATION: right lower leg wound HISTORY OF PRESENT ILLNESS: Nickie Tomlinson is a 70 year old y/o female w/ PMH DM2, HTN, hypothyroidism, GERD, DVT, prior smoker, malignant squamous carcinoma of the tongue s/p resection, chemotherapy and radiation w/ salvage neck dissection (2001), who presents for Wound Consult. 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 Alcaraz and Dr. Valle . S/p STSG of the right lower leg wound by Dr. Alcaraz on 02/21/[address]. [address] Alcaraz follow up note on 03/11/21, the right fibular graft site had 50% take. Pt has been dealing with some edema of the right ankle and foot. Dr. Alcaraz is aware. XR of the right ankle 03/20/21 showed postsurgical changes, negative for fracture, dislocation or osseous lesion. Pt was referred to [facility] for assistance with further wound care of the right lower leg wound/graft site. Location: right lateral lower leg Onset: 02/21/21 Aggravating factors: Diabetes mellitus, Edema and Surgical Wound etiology: Surgical Associated pain with wound: No Relieving factors for wound pain: n/a Treatments: Current: Aquaphor and Xeroform PAST MEDICAL HISTORY Diagnosis Date - Diabetes mellitus, type 2 (HCC) 2011 - Diverticulosis of colon (without mention of hemorrhage) - DVT (deep venous thrombosis) (HCC) 2001 bilateral leg DVT during chemo/radiation - GERD (gastroesophageal reflux disease) Hx ulcer - Hypertension - Hypothyroidism 2001 - Malignant neoplasm of base of tongue (HCC) 2001 - Osteoarthritis - 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, s/p resection, chemo, and radiation - Secondary and unspecified malignant neoplasm of lymph nodes of head, face, and neck 2001 PAST SURGICAL HISTORY Procedure Laterality Date - COLONOSCOP W/ OR W/O BRSH SPEC 06/26/2009 repeat due 2019 - JOINT REPLACEMENT HX - PAST SURGICAL HISTORY OF 08/09/2001 Direct laryngoscopy with multiple right base of tongue biopsies - PAST SURGICAL HISTORY OF 02/07/2002 Right complete cervical lymphadenectomy - PAST SURGICAL HISTORY OF ~ hysterectomy, non-ca - PAST SURGICAL HISTORY OF knee surgery left x 3 - TOTAL KNEE REPLACEMENT 09/2010, 05/2010 left and right - TRACHEOSTOMY PLANNED 2020 - VAGINAL HYSTERECTOMY ALLERGIES ALLERGIES Allergen Reactions - Celery Other: See Comments Migraine - Lisinopril Cough CURRENT OUTPATIENT MEDICATIONS triamterene-hydroCHLOROthiazide (MAXZIDE) 75-50 mg per tablet Take 1 tablet by mouth once daily. metFORMIN (GLUCOPHAGE) 500 mg tablet Take 500 mg by mouth twice daily with meals. ibuprofen (ADVIL) 200 mg tablet Take 200 mg by mouth every 6 hours as needed for pain. SITagliptin (JANUVIA) 50 mg tablet 1 tablet by CORPAK route once daily. losartan (COZAAR) 25 mg tablet Take 1 tablet by mouth once daily. levothyroxine (LEVOXYL) 88 mcg tablet Take 1 tablet by mouth once daily. Take on empty stomach. For Thyroid blood sugar diagnostic (BLOOD GLUCOSE TEST) test strip One Touch Test strips Test blood sugar(s) 1 times daily. Dx: E11.9 Insulin:No blood sugar diagnostic (ACCU-CHEK ADRIANA PLUS TEST STRP) test strip Test blood sugar(s) 1 times daily. Dx: E11.9. Insulin: No Lancets (ACCU-CHEK SOFTCLIX LANCETS) lancets Test blood sugar(s) 1 times daily. Dx: Type 2 DM - Controlled E11.9 Insulin: No pravastatin (PRAVACHOL) 20 mg tablet Take 1 tablet by mouth daily at bedtime. [DISCONTINUED] pantoprazole (PROTONIX) 40 mg/20 mL oral liquid Take 20 mL by mouth DAILY (6 AM). lactose-reduced food/fiber (ISOSOURCE 1.5 ÁNGEL FEEDING TUBE) 250 mL by CORPAK route four times daily. MEDICAL SUPPLY tube feeds: Isosource 1.5 ( or equivalent) 250 cc 4 times per day with 90 cc water flush pre and post feed guaiFENesin (ROBITUSSIN) 100 mg/5 mL syrup Take 5 mL by mouth every 6 hours as needed for cough. iv contrast (will be provided with radiology test) CT Chest W -Inject, intravenously, once for 1 dose.No IV access, insert saline lock prior to the beginning of sedation, infusion, injection of imaging exam. Discontinue saline lock post exam. If Pt. has a central line or IVAD, may access for administration according to line specific nursing protocol. Once exam is complete flush line and de-access according to line specific nursing protocol in the CT contrast administration guidelines link. coffee xt/phospha (more content not included)...[facility] [id number] History of Past illness Narrative* Problem Noted Date Resolved Date Pain in left shoulder 06/29/2015 02/19/2017 Type II or unspecified type diabetes mellitus without mention of complication, not stated as uncontrolled 04/26/2012 Radiotherapy follow-up examination 06/14/2004 02/19/2017 Chemotherapy follow-up examination 06/14/2004 07/23/2017 Follow-up examination, following unspecified carl dwayne 06/14/2004 10/08/2015 Malignant neoplasm of base of tongue 06/14/2004 06/06/2021 Overview: Released by ENT, only has to follow up if any more issues. documented as of this encounter (statuses as of 10/29/2021) [facility] History of Past illness Narrative* Problem Noted Date Resolved Date Pain in left shoulder 06/29/2015 02/19/2017 Type II or unspecified type diabetes mellitus without mention of complication, not stated as uncontrolled 04/26/2012 Radiotherapy follow-up examination 06/14/2004 02/19/2017 Chemotherapy follow-up examination 06/14/2004 07/23/2017 Follow-up examination, following unspecified carl dwayne 06/14/2004 10/08/2015 Malignant neoplasm of base of tongue 06/14/2004 06/06/2021 Overview: Released by ENT, only has to follow up if any more issues. documented as of this encounter (statuses as of 11/13/2021) [facility] History of Past illness Narrative* Problem Noted Date Resolved Date Pain in left shoulder 06/29/2015 02/19/2017 Type II or unspecified type diabetes mellitus without mention of complication, not stated as uncontrolled 04/26/2012 Radiotherapy follow-up examination 06/14/2004 02/19/2017 Chemotherapy follow-up examination 06/14/2004 07/23/2017 Follow-up examination, following unspecified carl dwayne 06/14/2004 10/08/2015 Malignant neoplasm of base of tongue 06/14/2004 06/06/2021 Overview: Released by ENT, only has to follow up if any more issues. 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, unspecified site [facility] Diagnosis Essential hypertension- Primary Unspecified essential hypertension Type 2 diabetes mellitus with stage 3 chronic kidney disease, without long-term current use of insulin, unspecified whether stage 3a or 3b CKD (HCC) Stage 3 chronic kidney disease, unspecified whether stage 3a or 3b CKD (HCC) Hypothyroidism, unspecified type Hyperlipidemia with target LDL less than 100 Other and unspecified hyperlipidemia Hypertensive kidney disease with stage 3 chronic kidney disease, unspecified whether stage 3a or 3b CKD (HCC) 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, unspecified site [facility] Diagnosis Essential hypertension Unspecified essential hypertension [facility] Diagnosis Hypothyroidism, unspecified type [facility] Diagnosis History of oropharyngeal cancer- Primary Personal history of malignant neoplasm of other and unspecified parts of oral cavity and pharynx History of radiation therapy Personal history of irradiation, presenting hazards to health [facility]* Diagnosis Hypothyroidism, unspecified type- Primary 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, 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, face, and neck (HCC) Malignant neoplasm of connective and other soft tissue of head, face, and neck Hypertensive kidney disease with stage 3 chronic kidney disease, unspecified whether stage 3a or 3b CKD (HCC) Type 2 diabetes mellitus with stage 3 chronic kidney disease, without long-term current use of insulin, unspecified whether stage 3a or 3b CKD (HCC) Essential hypertension Unspecified essential hypertension Hyperlipidemia with target LDL less than 100 Other and unspecified hyperlipidemia Cough, unspecified type [facility] Diagnosis Hyperlipidemia with target LDL less than 100 Other and unspecified hyperlipidemia Hypothyroidism, unspecified type [facility] Diagnosis Acute cystitis with hematuria- Primary Acute cystitis documented [facility]* Diagnosis 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, face, and neck (HCC)- Primary Malignant neoplasm of connective and other soft tissue of head, face, and neck documented [facility] this [facility]* Diagnosis Hypothyroidism, unspecified type [facility]* Diagnosis COVID-19- Primary [facility]* Diagnosis Acquired hallux valgus of left foot- Primary Hallux valgus (acquired) Acquired hallux valgus of right foot Hallux valgus (acquired) Hammertoe of right foot Callus Corns and callosities Type 2 diabetes mellitus with stage 3 chronic kidney disease, without long-term current use of insulin, unspecified whether stage 3a or 3b CKD (HCC) Diminished pulses in lower extremity Other symptoms involving cardiovascular system [facility] this [facility]* Diagnosis Encounter for screening mammogram for breast cancer documented [facility] this [facility]* Diagnosis Hyperlipidemia with target LDL less than 100- Primary Other and unspecified hyperlipidemia Hypothyroidism, unspecified type Type 2 diabetes mellitus with stage 3 chronic kidney disease, without long-term current use of insulin, unspecified whether stage 3a or 3b CKD (HCC) Hypertensive kidney disease with stage 3 chronic kidney disease, unspecified whether stage 3a or 3b CKD (HCC) 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, unspecified site Gastroesophageal reflux disease, unspecified whether esophagitis present 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, face, and neck (HCC) Malignant neoplasm of connective and other soft tissue of head, face, and neck documented in this encounter [facility]* Diagnosis Essential hypertension- Primary Unspecified essential hypertension Hypothyroidism, unspecified type Hyperlipidemia with target LDL less than 100 Other and unspecified hyperlipidemia Hypertensive kidney disease with stage 3 chronic kidney disease, unspecified whether stage 3a or 3b CKD (HCC) Type 2 diabetes mellitus with stage 3 chronic kidney disease, without long-term current use of insulin, unspecified whether stage 3a or 3b CKD (HCC) 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, face, and neck (HCC) Malignant neoplasm of connective and other soft tissue of head, face, and neck 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, unspecified site [facility] Hypothyroidism, unspecified type documented in this encounter [facility] for referral (narrative)* Outpatient Procedure (Routine) - Pending Review Specialty Diagnoses / Procedures Referred By Jamie lai Referred To [facility] Diagnoses Acquired hallux valgus of left foot Acquired hallux valgus of right foot Hammertoe of right foot Diminished pulses in lower extremity Procedures PVR ANK PRESS [facility] NON-INVAS PHYSIOLOGIC STD EXTREMITY ART 2 LEVEL Giles Luna [address] [place] [address] [facility] [place] [address] [place] [address] Referral ID Status Reason Start Date Expiration Date Visits Requested Visits Authorized [id number] Pending Review Auto-Generat ed Referral 12/26/2022 12/26/2023 1 1 * Diagnostic Procedure Only (Routine) - Closed Specialty Diagnoses / Procedures Referred By Jamie lai Referred To Contact [facility]R IMAGING Diagnoses Acquired hallux valgus of left foot Acquired hallux valgus of right foot Hammertoe of right foot Procedures XR FOOT GENERAL 3V AP/LAT/OBL BILATERAL RADEX FOOT COMPLETE MINIMUM 3 VIEWS Giles Luna [address] [place] [address] Xr Imaging Referral ID Status Reason Start Date Expiration Date V isits Requested Visits Authorized [id number] Closed Auto-Generate d Referral 12/26/2022 01/25/2024 1 1 [facility] for referral (narrative)* Diagnostic Procedure Only (Routine) - Pending Review Specialty Diagnoses / Procedures Referred By Jamie lai Referred To Contact [facility] Diagnoses Encounter for screening mammogram for breast cancer Procedures [facility] SCREENING SCREENING MAMMOGRAPHY BI 2-VIEW BREAST INC CAD Los [place] MD [address] [place] [address] [facility] [address] [place] [address] Referral ID Status Reason Start Date Expiration Date Visits Requested Visits Authorized [id number] Pending Review Auto-Generat ed Referral 12/24/2022 01/23/2024 1 1 [facility] Summary Purpose Family History No Family History Records FoundNo Family History Records Found Advance Directives No Advanced Directives Records FoundDocuments on File Type Date Recorded Patient Filenet Admin Expl anation Advance Directive(s) 07/10/2009 8:58 PM Latest Code Status on File Code Status Date Activated Date Inactivated Comments Full Code 03/28/2021 5:27 PM Full Code 02/01/2021 10:56 AM 02/21/2021 5:27 AM Documents on File Type Date Recorded Patient Filenet Admin Expl anation Advance Directive(s) 01/31/2021 9:02 AM Advance Directive(s) 01/14/2021 4:17 PM Advance Directive(s) 11/14/2020 6:58 AM Advance Directive(s) 11/08/2020 8:56 AM Advance Directive(s) 07/10/2009 8:58 PM Documents on File Type Date Recorded Patient Filenet Admin Expl anation Advance Directive(s) 07/10/2009 8:58 PM Latest Code Status on File Code Status Date Activated Date Inactivated Comments Full Code 03/28/2021 5:27 PM Full Code 02/01/2021 10:56 AM 02/21/2021 5:27 AM Latest Code Status on File Code Status Date Activated Date Inactivated Comments Full Code 03/28/2021 5:27 PM Code Status History Code Status Date Activated Date Inactivated Comments Full Code 02/01/2021 10:56 AM 02/21/2021 5:27 AM Health Concerns Infection Onset Date Last Indicated Resolved Time COVID-19 Confirmed 11/21/2022 11/21/2022 Infection Onset Date Last Indicated Resolved Time COVID-19 Confirmed 11/21/2022 11/21/2022 3 8:51 PM EDT Additional Source Comments INFORMATION SOURCE (unrecogn ized section and content) DATE CREATED AUTHOR AUTHOR'S AUTUMN VALENCIA 07/07/2023 [facility] Source Comments (unrecognize d section and content) In the event this informatio n is protected by the Federal Confidentiality of Alcohol and Drug Abuse Patient Records regulations: The Federal rules restrict any use of the information to criminally investigate or prosecute any alcohol or drug abuse patient.[facility] the event this information is protected by the Federal Confidentiality of Alcohol and Drug Abuse Patient Records regulations: The Federal rules restrict any use of the information to criminally investigate or prosecute any alcohol or drug abuse patient.[facility] the event this information is protected by the Federal Confidentiality of Alcohol and Drug Abuse Patient Records regulations: The Federal rules restrict any use of the information to criminally investigate or prosecute any alcohol or drug abuse patient.[facility] the event this information is protected by the Federal Confidentiality of Alcohol and Drug Abuse Patient Records regulations: The Federal rules restrict any use of the information to criminally investigate or prosecute any alcohol or drug abuse patient.[facility] Center[facility] the event this information is protected by the Federal Confidentiality of Alcohol and Drug Abuse Patient Records regulations: The Federal rules restrict any use of the information to criminally investigate or prosecute any alcohol or drug abuse patient.[facility] the event this information is protected by the Federal Confidentiality of Alcohol and Drug Abuse Patient Records regulations: The Federal rules restrict any use of the information to criminally investigate or prosecute any alcohol or drug abuse patient.[facility] Center[facility] the event this information is protected by the Federal Confidentiality of Alcohol and Drug Abuse Patient Records regulations: The Federal rules restrict any use of the information to criminally investigate or prosecute any alcohol or drug abuse patient.[facility] Center[facility] the event this information is protected by the Federal Confidentiality of Alcohol and Drug Abuse Patient Records regulations: The Federal rules restrict any use of the information to criminally investigate or prosecute any alcohol or drug abuse patient.[facility] the event this information is protected by the Federal Confidentiality of Alcohol and Drug Abuse Patient Records regulations: The Federal rules restrict any use of the information to criminally investigate or prosecute any alcohol or drug abuse patient.[facility] Center[facility] the event this information is protected by the Federal Confidentiality of Alcohol and Drug Abuse Patient Records regulations: The Federal rules restrict any use of the information to criminally investigate or prosecute any alcohol or drug abuse patient.[facility] Center[facility] the event this information is protected by the Federal Confidentiality of Alcohol and Drug Abuse Patient Records regulations: The Federal rules restrict any use of the information to criminally investigate or prosecute any alcohol or drug abuse patient.[facility] the event this information is protected by the Federal Confidentiality of Alcohol and Drug Abuse Patient Records regulations: The Federal rules restrict any use of the information to criminally investigate or prosecute any alcohol or drug abuse patient.[facility] Center[facility] the event this information is protected by the Federal Confidentiality of Alcohol and Drug Abuse Patient Records regulations: The Federal rules restrict any use of the information to criminally investigate or prosecute any alcohol or drug abuse patient.[facility] Center[facility] the event this information is protected by the Federal Confidentiality of Alcohol and Drug Abuse Patient Records regulations: The Federal rules restrict any use of the information to criminally investigate or prosecute any alcohol or drug abuse patient.[facility] Center[facility] the event this information is protected by the Federal Confidentiality of Alcohol and Drug Abuse Patient Records regulations: The Federal rules restrict any use of the information to criminally investigate or prosecute any alcohol or drug abuse patient.[facility] Center[facility] the event this information is protected by the Federal Confidentiality of Alcohol and Drug Abuse Patient Records regulations: The Federal rules restrict any use of the information to criminally investigate or prosecute any alcohol or drug abuse patient.[facility] Center[facility] the event this information is protected by the Federal Confidentiality of Alcohol and Drug Abuse Patient Records regulations: The Federal rules restrict any use of the information to criminally investigate or prosecute any alcohol or drug abuse patient.[facility] Center[facility] the event this information is protected by the Federal Confidentiality of Alcohol and Drug Abuse Patient Records regulations: The Federal rules restrict any use of the information to criminally investigate or prosecute any alcohol or drug abuse patient.[facility] CenterIn the event this information is protected by the Federal Confidentiality of Alcohol and Drug Abuse Patient Records regulations: The Federal rules restrict any use of the information to criminally investigate or prosecute any alcohol or drug abuse patient.[facility] CenterIn the event this information is protected by the Federal Confidentiality of Alcohol and Drug Abuse Patient Records regulations: The Federal rules restrict any use of the information to criminally investigate or prosecute any alcohol or drug abuse patient.[facility] CenterIn the event this information is protected by the Federal Confidentiality of Alcohol and Drug Abuse Patient Records regulations: The Federal rules restrict any use of the information to criminally investigate or prosecute any alcohol or drug abuse patient.[facility] CenterIn the event this information is protected by the Federal Confidentiality of Alcohol and Drug Abuse Patient Records regulations: The Federal rules restrict any use of the information to criminally investigate or prosecute any alcohol or drug abuse patient.[facility] CenterIn the event this information is protected by the Federal Confidentiality of Alcohol and Drug Abuse Patient Records regulations: The Federal rules restrict any use of the information to criminally investigate or prosecute any alcohol or drug abuse patient.[facility] CenterIn the event this information is protected by the Federal Confidentiality of Alcohol and Drug Abuse Patient Records regulations: The Federal rules restrict any use of the information to criminally investigate or prosecute any alcohol or drug abuse patient.[facility] CenterIn the event this information is protected by the Federal Confidentiality of Alcohol and Drug Abuse Patient Records regulations: The Federal rules restrict any use of the information to criminally investigate or prosecute any alcohol or drug abuse patient.[facility] Reason for Visit (unrecogniz ed section and content) Reason Onset Date Comments Population Health Navigation Outreach 11/13/2021 [employer] Care Gaps Reason Comments Follow Up 3 month follow up Reason Comments 6 Month Exam Reason Onset Date Comments Refill Request 12/26/2021 Reason Onset Date Comments Refill Request 01/24/2022 Reason Comments Established Patient Follow-Up Reason Onset Date Comments Population Health Navigation Outreach 03/26/2022 [employer] Care Gaps Reason Onset Date Comments Refill Request 05/19/2022 Reason Comments Recheck 6 month Reason Onset Date Comments Refill Request 07/28/2022 Reason Comments Urinary Problem Reason Onset Date Comments Refill Request 10/20/2022 Reason Comments Ear Pain Reason Comments Results Reason Onset Date Comments Refill Request 12/01/2022 SEE RX NOTES Reason Comments Bunion Pain Reason Onset Date Comments Population Health Navigation Outreach 04/02/2023 [employer] Care gaps 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 Reason Onset Date Comments Population Health Navigation Outreach 06/13/2023 [employer] care gaps Care Teams (unrecognized sec tion and content) Nursing Unit Clerk Relationship Specialty Start Date End Date Los Davenport MD [address] [place], [place] [id number] PCP - General Family Practice 05/23/15 Los Davenport MD [address] [place], [place] [id number] Home Care Physician Family Practice 01/30/21 Lev Valle MD [address] [address] Referring Ent - Otolaryngology 01/30/21 William Alcaraz MD [address] [place], [place] [id number] Consulting Ent - Otolaryngology 01/30/21 Carie Galvin, ULYSSES [address] [place] [address] Fermentologist Ent - Otolaryngology 01/04/21 Nursing Unit Clerk Relationship Specialty Start Date End Date Los Davenport MD [address] [place], [place] [id number] PCP - General Family Practice 05/23/15 Los Davenport MD [address] [place] [address] Home Care Physician Family Practice 01/30/21 Lev Valle MD [address] [address] Referring Ent - Otolaryngology 01/30/21 William Alcaraz MD [address] [place] [address] Consulting Ent - Otolaryngology 01/30/21 Carie Galvin, ULYSSES [address] [place] [address] Fermentologist Ent - Otolaryngology 01/04/21 Nursing Unit Clerk Relationship Specialty Start Date End Date Los Davenport MD [address] [place] [address] PCP - General Family Practice 05/23/15 Los Davenport MD [address] [place] [address] Home Care Physician Family Practice 01/30/21 Lev Valle MD [address] [address] Referring Ent - Otolaryngology 01/30/21 William Alcaraz MD [address] [place] [address] Consulting Ent - Otolaryngology 01/30/21 Carie Galvin, ULYSSES [address] [place] [address] Fermentologist Ent - Otolaryngology 01/04/21 Nursing Unit Clerk Relationship Specialty Start Date End Date Los Davenport MD [address] [place] [address] PCP - General Family Practice 05/23/15 Los Davenport MD [address] [place] [address] Home Care Physician Family Practice 01/30/21 Lev Valle MD [address] [address] Referring Ent - Otolaryngology 01/30/21 William Alcaraz MD [address] [place] [address] Consulting Ent - Otolaryngology 01/30/21 Carie Galvin, ULYSSES [address] [place] [address] Fermentologist Ent - Otolaryngology 01/04/21 Nursing Unit Clerk Relationship Specialty Start Date End Date Los Davenport MD [address] [place] [address] PCP - General Family Practice 05/23/15 Los Davenport MD [address] [place] [address] Home Care Physician Family Practice 01/30/21 Lev Valle MD [address] [address] Referring Ent - Otolaryngology 01/30/21 William Alcaraz MD [address] [place] [address] Consulting Ent - Otolaryngology 01/30/21 Carie Galvin, ULYSSES [address] [place] [address] Fermentologist Ent - Otolaryngology 01/04/21 Nursing Unit Clerk Relationship Specialty Start Date End Date Los Davenport MD [address] [place] [address] PCP - General Family Practice 05/23/15 Los Davenport MD [address] [place] [address] Home Care Physician Family Practice 01/30/21 Lev Valle MD [address] [address] Referring Ent - Otolaryngology 01/30/21 William Alcaraz MD [address] [place] [address] Consulting Ent - Otolaryngology 01/30/21 Carie Galvin, ULYSSES [address] [place] [address] Fermentologist Ent - Otolaryngology 01/04/21 Nursing Unit Clerk Relationship Specialty Start Date End Date Los Davenport MD [address] [place] [address] PCP - General Family Medicine 05/23/15 Los Davenport MD [address] [place] [address] Home Care Provider Family Medicine 01/30/21 [address] [facility] [address] [facility] [address] [address] Referring Ent - Otolaryngology 01/30/21 William Alcaraz MD [address] [place] [address] Consulting Ent - Otolaryngology 01/30/21 Carie Galvin RN [address] [place] [address] Fermentologist Ent - Otolaryngology 01/04/21 Nursing Unit Clerk Relationship Specialty Start Date End Date Los Davenport MD [address] [place] [address] PCP - General Family Medicine 05/23/15 Los Davenport MD [address] [place] [address] Home Care Provider Family Medicine 01/30/21 Lev Valle MD [address] [address] Referring Ent - Otolaryngology 01/30/21 William Alcaraz MD [address] [place] [address] Consulting Ent - Otolaryngology 01/30/21 Carie Galvin, RN [address] [place] [address] Fermentologist Ent - Otolaryngology 01/04/21 Nursing Unit Clerk Relationship Specialty Start Date End Date Los Davenport MD [address] [place] [address] PCP - General Family Medicine 05/23/15 Los Davenport MD [address] [place] [address] Home Care Provider Family Medicine 01/30/21 Lev Valle MD [address] [address] Referring Ent - Otolaryngology 01/30/21 William Alcaraz MD [address] [place] [address] Consulting Ent - Otolaryngology 01/30/21 Carie Galvin, ULYSSES [address] [place] [address] Fermentologist Ent - Otolaryngology 01/04/21 Nursing Unit Clerk Relationship Specialty Start Date End Date Los Davenport MD [address] [place] [address] PCP - General Family Medicine 05/23/15 Los Davenport MD [address] [place] [address] Home Care Provider Family Medicine 01/30/21 Lev Valle MD [address] [address] Referring Ent - Otolaryngology 01/30/21 William Alcaraz MD [address] [place] [address] Consulting Ent - Otolaryngology 01/30/21 Carie Galvin, ULYSSES [address] [place] [address] Fermentologist Ent - Otolaryngology 01/04/21 Nursing Unit Clerk Relationship Specialty Start Date End Date Los Davenport MD [address] [place] [address] PCP - General Family Medicine 05/23/15 Los Davenport MD [address] [place] [address] Home Care Provider Family Medicine 01/30/21 [address] [facility] [facility] [address] [address] Referring Ent - Otolaryngology 01/30/21 William Alcaraz MD [address] [place] [address] Consulting Ent - Otolaryngology 01/30/21 Carie Galvin RN [address] [place] [address] Fermentologist Ent - Otolaryngology 01/04/21 Nursing Unit Clerk Relationship Specialty Start Date End Date Los Davenport MD [address] [place] [address] PCP - General Family Medicine 05/23/15 Los Davenport MD [address] [place] [address] Home Care Provider Family Medicine 01/30/21 Lev Valle MD [address] [address] Referring Ent - Otolaryngology 01/30/21 William Alcaraz MD [address] [place] [address] Consulting Ent - Otolaryngology 01/30/21 Carie Galvin, ULYSSES [address] [place] [address] Fermentologist Ent - Otolaryngology 01/04/21 Nursing Unit Clerk Relationship Specialty Start Date End Date Los Davenport MD [address] [place] [address] PCP - General Family Medicine 05/23/15 Los Davenport MD [address] [place] [address] Home Care Provider Family Medicine 01/30/21 Lev Valle MD [address] [address] Referring Ent - Otolaryngology 01/30/21 William Alcaraz MD [address] [place] [address] Consulting Ent - Otolaryngology 01/30/21 Carie Galvin, ULYSSES [address] [place] [address] Fermentologist Ent - Otolaryngology 01/04/21 Nursing Unit Clerk Relationship Specialty Start Date End Date Los Davenport MD [address] [place] [address] PCP - General Family Medicine 05/23/15 Los Davenport MD [address] [place] [address] Home Care Provider Family Medicine 01/30/21 Lev Valle MD [address] [address] Referring Ent - Otolaryngology 01/30/21 William Alcaraz MD [address] [place] [address] Consulting Ent - Otolaryngology 01/30/21 Carie Galvin RN [address] [place] [address] Fermentologist Ent - Otolaryngology 01/04/21 Nursing Unit Clerk Relationship Specialty Start Date End Date Los Davenport MD [address] [place] [address] PCP - General Family Medicine 05/23/15 Los Davenport MD [address] [place] [address] Home Care Provider Family Medicine 01/30/21 Lev Valle MD [address] [address] Referring Ent - Otolaryngology 01/30/21 William Alcaraz MD [address] [place] [address] Consulting Ent - Otolaryngology 01/30/21 Carie Galvin RN [address] [place] [address] Fermentologist Ent - Otolaryngology 01/04/21 Nursing Unit Clerk Relationship Specialty Start Date End Date Los Davenport MD [address] [place] [address] PCP - General Family Medicine 05/23/15 Los Davenport MD [address] [place], [place] [id number] Home Care Provider Family Medicine 01/30/21 Lev Valle MD [address] [phone] Referring Ent - Otolaryngology 01/30/21 William Alcaraz MD [address] [place], [place] [id number] Consulting Ent - Otolaryngology 01/30/21 Carie Galvin RN [address], [place] [address] Fermentologist Ent - Otolaryngology 01/04/21 Nursing Unit Clerk Relationship Specialty Start Date End Date Los Davenport MD [address] [place], [place] [address]51 PCP - General Family Medicine 05/23/15 Los Davenport MD [address] [place], [place] [address]751 Home Care Provider Family Medicine 01/30/21 Lev Valle MD [address] [address] Referring Ent - Otolaryngology 01/30/21 William Alcaraz MD [address] [place] [address] Consulting Ent - Otolaryngology 01/30/21 Carie Galvin, ULYSSES [address] [place] [address] Fermentologist Ent - Otolaryngology 01/04/21 Nursing Unit Clerk Relationship Specialty Start Date End Date Los Davenport MD [address] [place], [place] [address] PCP - General Family Medicine 05/23/15 Los Davenport MD [address] [place], [place] [address] Home Care Provider Family Medicine 01/30/21 Lev Valle MD [address] [address] Referring Ent - Otolaryngology 01/30/21 William Alcaraz MD [address] [place] [address] Consulting Ent - Otolaryngology 01/30/21 Carie Galvin RN [address] [place] [address] Fermentologist Ent - Otolaryngology 01/04/21 Nursing Unit Clerk Relationship Specialty Start Date End Date Los Daevnport MD [address] [place], [place] [id number] PCP - General Family Medicine 05/23/15 Los Davenport MD [address] [place], [place] [id number] Home Care Provider Family Medicine 01/30/21 Lev Valle MD [address] [address] Referring Ent - Otolaryngology 01/30/21 William Alcaraz MD [address] [place], [place] [phone] Consulting Ent - Otolaryngology 01/30/21 Carie Galvin RN [address] [place] [address] Fermentologist Ent - Otolaryngology 01/04/21 Nursing Unit Clerk Relationship Specialty Start Date End Date Los Davenport MD [address] [place] [address] PCP - General Family Medicine 05/23/15 Los Davenport MD [address] [place] [address] Home Care Provider Family Medicine 01/30/21 Lev Valle MD [address] [address] Referring Ent - Otolaryngology 01/30/21 William Alcaraz MD [address] [place] [address] Consulting Ent - Otolaryngology 01/30/21 Carie Galvin RN [address] [place] [address] Fermentologist Ent - Otolaryngology 01/04/21 Nursing Unit Clerk Relationship Specialty Start Date End Date Los Davenport MD [address] [place] [address] PCP - General Family Medicine 05/23/15 Los Davenport MD [address] [place], [place] 9[address] Home Care Provider Family Medicine 01/30/21 Lev Valle MD [address] [place] [address] Referring Ent - Otolaryngology 01/30/21 William Alcaraz MD [address] [place] [address] Consulting Ent - Otolaryngology 01/30/21 Carie Galvin RN [address], [place] [address] Fermentologist Ent - Otolaryngology 01/04/21 FOR RECORDS PERTAINING TO PATIENTS WHO ARE OR HAVE BEEN ENROLLED IN A CHEMICAL DEPENDENCY/SUBSTANCEABUSE PROGRAM, SOME INFORMATION MAY BE OMITTED. This clinical summary was aggregated from multiple sources. Caution should be exercised in using it in the provision of clinical care. This summary normalizes information from multiple sources, and as a consequence, information in this document may materially change the coding, format and clinical context of patient data. In addition, data may be omitted in some cases. CLINICAL DECISIONS SHOULD BE BASED ON THE PRIMARY CLINICAL RECORDS. [employer] provides no warranty or guarantee of the accuracy or completeness of information in this document.
== END 2023-07-28 19:37 | disposition home or self-care (01) ==
PROVIDERS: Emergency Provider Emergency Medicine; PCP Family Medicine; Visit Provider Emergency Medicine
DX: S13.4XXA Sprain of ligaments of cervical spine, initial encounter (principal); E11.9 Type 2 diabetes mellitus without complications; Z87.891 Personal history of nicotine dependence; I10 Essential (primary) hypertension; R51.9 Headache, unspecified; Z79.82 Long term (current) use of aspirin; V43.52XA Car driver injured in collision with other type car in traffic accident, initial encounter
CPT/HCPCS: 70450; 72125; 99282

== ENCOUNTER 2023-09-09 16:10 | Emergency (ER) | payer MEDICARE, SELFPAY ==
[2023-09-09] VITALS (7 sets, daily range): BP systolic 103–137; BP diastolic 66–79; PULSE 67–84; RESP 14–16; TEMP 36.4–36.5; O2SAT 92–97; BMI 31.8
--- NOTE | 2023-09-09 16:40 | EDS_ITS ---
HPI History of Present Illness Chief Complaint: Syncope Narrative Narrative: 72-year-old female who has been generally ill for the last 4 days presenting with an episode of near syncope from the office today. Patient went to see her primary care provider for the symptoms and while she was sitting in the office she passed out. No loss of bladder or bowel control. No seizure activity. Patient feels fine at the moment. She does admit that she might of been eating and drinking less. She states she drinks iced tea all day long as well. No fevers or chills at home. She does some body aches and myalgias. She did complain of a headache. She states Tylenol does not work but ibuprofen does help but states this is at bedtime. [facility] Medical History Cancer Diabetes Hypertension Hypothyroidism Osteoarthritis (arthritis due to wear and tear of joints) Home Medications aspirin 81 mg tablet,delayed release 81 mg PO DAILY@0800 08/31/19 [History Last Taken Unknown] biotin 1 mg tablet 1 mg PO DAILY 08/31/19 [History Last Taken Unknown] lansoprazole 15 mg capsule,delayed release 15 mg PO DAILY 08/31/19 [History Last Taken Unknown] levothyroxine 88 mcg tablet 88 mcg PO DAILY 08/31/19 [History Last Taken 09/02/19 0830] losartan 25 mg tablet 25 mg PO DAILY 08/31/19 [History Last Taken 09/02/19 0900] metformin 1,000 mg tablet 1,000 mg PO BID 08/31/19 [History Last Taken Unknown] pravastatin 20 mg tablet 20 mg PO QHS 08/31/19 [History Last Taken Unknown] benzonatate 100 mg capsule 100 mg PO Q6H 09/09/23 [History Last Taken Unknown] linagliptin 5 mg tablet (Tradjenta) 5 mg PO DAILY 09/09/23 [History Last Taken Unknown] triamterene 75 mg-hydrochlorothiazide 50 mg tablet (Maxzide) 1 tab PO DAILY 09/09/23 [History Last Taken Unknown] Allergy/AdvReac Type Severity Reaction Status Date / Time celery Allergy Other Verified 09/09/23 17:50 lisinopril AdvReac Mild cough Verified 09/09/23 17:50 Surgical History History of mandibular surgery Social History Smoking Status: Former smoker ROS ROS ED ROS Narrative Fatigue Constitutional Constitutional ED: Denies chills, fever(s) or sweats Eyes Eyes: Denies blurry vision or change in vision ENT ENT ED: Denies ear pain or sore throat Cardiovascular Cardiovascular: Reports other Details: Near syncope ; Denies chest pain, palpitations or racing heartbeat Respiratory/Chest Respiratory/Chest: Denies cough, dyspnea or sputum Gastrointestinal Gastrointestinal: Denies abdominal pain, constipation, diarrhea, nausea or vomiting Genitourinary Genitourinary ED: Denies dysuria, hematuria or urinary frequency Musculoskeletal Musculoskeletal: Denies arthralgias, myalgias or neck pain Integumentary Denies abscess, Abrasions or rash Neurologic Neurologic: Reports headache(s); Denies paresthesias or weakness Psychiatric Psychiatric: Denies anxiety, depression, suicidal ideation or suicidal thoughts Endocrine Endocrinology: Denies polydipsia or polyuria EXAM Physical Exam Const Vital Signs: 09/09/23 16:18 09/09/23 16:53 09/09/23 16:53 Temperature 97.7 F L Temperature Source Temporal Pulse Rate 69 Pulse Rate [Sitting (for 1 minute prior to obtaining)] Pulse Rate [Standing (for 1 minute prior to obtaining)] Respiratory Rate 14 Respiratory Pattern Normal Blood Pressure 103/66 Blood Pressure [Lying] Blood Pressure [Sitting (for 1 minute prior to obtaining)] Blood Pressure [Standing (for 1 minute prior to obtaining)] Blood Pressure Mean 78 Blood Pressure Mean [Lying] Blood Pressure Mean [Sitting (for 1 minute prior to obtaining)] Blood Pressure Mean [Standing (for 1 minute prior to obtaining)] Pulse Ox 95 95 Oxygen Delivery Method Room Air Room Air 09/09/23 18:00 09/09/23 18:54 09/09/23 20:31 Temperature Temperature Source Pulse Rate 72 69 Pulse Rate [Sitting (for 1 minute prior to obtaining)] 69 Pulse Rate [Standing (for 1 minute prior to obtaining)] 84 Respiratory Rate 14 16 Respiratory Pattern Blood Pressure 126/75 H 134/68 H Blood Pressure [Lying] 120/71 Blood Pressure [Sitting (for 1 minute prior to obtaining)] 126/77 H Blood Pressure [Standing (for 1 minute prior to obtaining)] 126/75 H Blood Pressure Mean 92 90 Blood Pressure Mean [Lying] 87 Blood Pressure Mean [Sitting (for 1 minute prior to obtaining)] 93 Blood Pressure Mean [Standing (for 1 minute prior to obtaining)] 92 Pulse Ox 97 97 Oxygen Delivery Method Room Air 09/09/23 21:49 Temperature 97.6 F L Temperature Source Pulse Rate 67 Pulse Rate [Sitting (for 1 minute prior to obtaining)] Pulse Rate [Standing (for 1 minute prior to obtaining)] Respiratory Rate 15 Respiratory Pattern Blood Pressure 137/79 H Blood Pressure [Lying] Blood Pressure [Sitting (for 1 minute prior to obtaining)] Blood Pressure [Standing (for 1 minute prior to obtaining)] Blood Pressure Mean 98 Blood Pressure Mean [Lying] Blood Pressure Mean [Sitting (for 1 minute prior to obtaining)] Blood Pressure Mean [Standing (for 1 minute prior to obtaining)] Pulse Ox 96 Oxygen Delivery Method Positive well nourished and well developed General Appearance ED: well developed HEENT Reports moist mucous membranes Eyes PERRL and EOMs intact bilaterally Chest Wall inspection of chest normal Resp normal respiratory effort and clear to auscultation bilaterally Auscultation: Negative for rales, rhonchi or wheezes Cardio regular rate and regular rhythm Neuro oriented x3 and CN's II-XII intact bilaterally Sensorium / Orientation: alert Motor Exam: strength 5/5 throughout Psych mental status grossly normal Skin no rashes or lesions noted General Skin Exam: Negative for elasticity normal or jaundice MDM MDM MDM Narrative Medical decision making narrative: Patient presenting with near syncope in office. She likely had something viral for the last 4 days. No fevers or chills. She does admit to decreased p.o. intake as far as food goes but has been eating lots of ice tea and not a lot of water. She states she may drink 2 bottles of water a day. Patient near- syncopal in the office differential includes dehydration, anemia, electrolyte normalities, viral syndrome, ACS, pneumonia. CBC was obtained to assess white blood cell count, hemoglobin, platelets. BMP to assess renal function, electrolytes, glucose. High-sensitivity troponin and BNP were obtained as well as EKG and chest x-ray. CBC unremarkable. BMP shows mild elevation creatinine 1.22. Patient was given IV fluids after orthostatics were negative. High- sensitivity troponin is 45. EKG on my interpretation shows a normal sinus rhythm with a ventricular rate of 68 bpm without sign of ischemic change or ectopy. Chest x-ray my interpretation shows no acute process. Patient was ambulated around the room and felt comfortable. She was no longer lightheaded. Her headache was treated with Reglan and she states her headache is now gone. I counseled her to try to avoid ibuprofen as she has been dehydrated and this could affect her renal function. She can use Tylenol safely. Plenty of fluids. I recommended strict well water and ice tea. Return precautions discussed. Impression: 1. Near syncope 2. Dehydration 3. Viral syndrome Lab Data Attestation: I reviewed the patient's lab results. Labs: Laboratory Results - last 24 hr 09/09/23 16:54 WBC 7.6 RBC 4.59 Hgb 12.8 Hct 38.7 MCV 84.3 MCH 27.9 MCHC 33.1 RDW Std Deviation 36.6 RDW Coeff of Gabe 12.0 Plt Count 203 MPV 9.4 Immature Gran % (Auto) 0.500 Neut % (Auto) 79.6 H Lymph % (Auto) 9.6 L [place] % (Auto) 7.5 Eos % (Auto) 2.5 Baso % (Auto) 0.3 Absolute Neuts (auto) 6.1 Absolute Lymphs (auto) 0.73 L Nucleated RBC % 0 Sodium 133 L Potassium 4.1 Chloride 96 L Carbon Dioxide 29.0 Anion Gap 8 BUN 17 Creatinine 1.22 H Estim Creat Clear Calc 44.04 Est GFR (MDRD) Af Amer 55 L Est GFR (MDRD) Non-Af 46 L BUN/Creatinine Ratio 13.9 Glucose 208 H Calcium 8.7 Troponin I High Sens 45 B-Natriuretic Peptide 20.8 Radiography Diagnostic Testing: Clinical Impression(s) from Imaging Studies Chest X-Ray 09/09/23 16:55 IMPRESSION: No evidence of acute cardiopulmonary process. Electronically Signed: Mukesh Allan DO at 17:05 EST , Discharge Plan Triage Chief Complaint: Syncope ED Provider: Boris Shelton Dx/Rx/DC Orders Instructions: ED Near-Fainting, Uncertain Cause Prescriptions: No Action aspirin 81 MG tablet 81 mg PO DAILY@0800 levothyroxine 88 MCG tablet 88 mcg PO DAILY metformin 1,000 MG tablet 1,000 mg PO BID losartan 25 MG tablet 25 mg PO DAILY lansoprazole 15 MG capsule,delayed release(DR/EC) 15 mg PO DAILY pravastatin 20 MG tablet 20 mg PO QHS biotin 1 MG tablet 1 mg PO DAILY benzonatate 100 mg capsule 100 mg PO Q6H Patient Comments: TAKE 1 CAPSULE BY MOUTH THREE TIMES DAILY NEEDED FOR COUGH Tradjenta 5 mg tablet 5 mg PO DAILY triamterene-hydrochlorothiazid [Maxzide] 75-50 mg tablet 1 tab PO DAILY Primary Care Provider: Los Davenport Referrals: Los Davenport MD [Primary Care Provider] - Disposition Disposition: Home, Self Care Discharge Date/Time: 09/09/23 21:49
--- NOTE | 2023-09-09 16:40 | EKG12_ITS ---
Test Reason : DIZZY Blood Pressure : / mmHG Vent. Rate : 068 BPM Atrial Rate : 068 BPM P-R Int : 170 ms QRS Dur : 078 ms QT Int : 440 ms P-R-T Axes : 055 -38 070 degrees QTc Int : 467 ms Normal sinus rhythm Left axis deviation Abnormal ECG Confirmed by Mazin Valdes ([id number]), rewrite editor BELÉN DURANT ([id number]) on 09/10/2023 8:05:45 AM Referred By: Confirmed By:Mazin Valdes
--- NOTE | 2023-09-09 16:55 | RAD_ITS ---
STUDY: X-RAY CHEST REASON FOR EXAM: Female, 72 years old. chest pain TECHNIQUE: Single AP portable view of the chest. COMPARISON: None. FINDINGS: The lungs are clear and expanded. There is no demonstrated pleural abnormality. Normal size heart. Normal mediastinum and tristin. Normal visualized pulmonary arteries. Normal visualized aortic arch and descending thoracic aorta. Normal visualized thoracic spine. Normal visualized ribs, clavicles, and shoulders. There is no demonstrated abnormality of the visualized soft tissue structures of the upper abdomen. RAD/Chest 1 View (Portable) IMPRESSION: No evidence of acute cardiopulmonary process. Electronically Signed: Mukesh Allan DO at 17:05 [facility] ,
[2023-09-09 17:10] LABS: Absolute Lymphocyte Count 0.73 X10^3/uL (0.83-4.51); Absolute Neutrophil Count 6.1 X10^3/uL (2.0-7.7); Basophil# 0.02 X10^3/uL; Basophil% 0.3 % (0-1); Eosinophil# 0.19 X10^3/uL; Eosinophils% 2.5 % (0-5); Hematocrit 38.7 % (37-47); Hemoglobin 12.8 g/dL (12.0-15.0); Lymphocyte # 0.73 X10^3/ul (0.83-4.51); Lymphocyte % 9.6 % (19-41); Mean Corp Hgb Conc 33.1 g/dL (32-36); Mean Corpuscular Hgb 27.9 pg (27.0-32.0); Mean Corpuscular Volume 84.3 fL (81-99); Mean Platelet Vol. 9.4 fl (6.2-12.0); Monocyte# 0.57 X10^3/uL; Monocyte% 7.5 % (0-10); NRBC Flagged by Analyzer 0 % (0-5); Neutrophil # 6.05 X10^3/uL (2.7-7.7); Neutrophil % 79.6 % (47-70); Platelet Count 203 K/mm3 (150-450); RBC Distribution Width SD 36.6 fl (35.1-43.9); Red Blood Count 4.59 M/mm3 (4.2-5.4); White Blood Count 7.6 K/mm3 (4.4-11.0)
[2023-09-09 17:32] LABS: Anion Gap 8 (5-15); BUN 17 mg/dL (7-18); BUN/Creat Ratio 13.9 RATIO (10-20); Calcium,Total 8.7 mg/dL (8.5-10.1); Chloride 96 mmol/L (98-107); Creatinine, Serum 1.22 mg/dL (0.55-1.02); EST Glomerular Filtration Rate 46 mL/min (>60); Est Glom Filt Rate - Afr Amer 55 mL/min (>60); Estimated Creatinine Clearance 44.04 ml/min; Glucose 208 mg/dL (74-106); Potassium 4.1 mmol/L (3.5-5.1); Sodium Level 133 mmol/L (136-145); Troponin-I HS 45 pg/mL (3.0-54.0)
[2023-09-09 17:47] LABS: BNP,B-Type NATRIURETIC PEPTIDE 20.8 pg/mL (0-100)
[2023-09-09] MEDS: Metoclopramide 10 MG/2 ML Vial IV (18:22)
[2023-09-09] MEDS: 0.9% Normal Saline (1000mL) 1,000 ML 999 ML IV (18:22)
--- OUTSIDE RECORDS SUMMARY | 2023-09-09 19:38 | XMS RPT_ITS | CCD ---
Author Name Unknown Address [address] [place] [address] Organization [facility] Care Team Providers Care Injection Wax Molder Name Role Phone Los Davenport MD Primary Care Provider Kira ARORA, Mary Unavailable Unavailable Los Davenport MD Unavailable Lev Valle MD Unavailable William Alcaraz MD Unavailable Kamar RN, Carie Unavailable Los Davenport MD Primary Care Provider Los Davenport MD Unavailable Lev Valle MD Unavailable [phone] William Alcaraz MD Unavailable Kamar RN, Carie Unavailable Los Davenport MD Primary Care Provider Los Davenport MD Unavailable Kamar RN, Carie Unavailable Los Davenport MD Primary Care Provider Los Davenport MD Unavailable [phone] Lev Valle MD Unavailable William Alcaraz MD Unavailable Kamar RN, Carie Unavailable Kamar ARORA, Carie Unavailable LOS DAVENPORT Primary Care Unavailable LOS DAVENPORT Attending Unavailable LOS DAVENPORT Referring Unavailable LOS DAVENPORT Primary Care Unavailable LEV VALLE Attending Unavailable LOS DAVENPORT Primary Care Unavailable LOS DAVENPORT Attending Unavailable LOS DAVENPORT Primary Care Unavailable LOS DAVENPORT Referring Unavailable LOS DAVENPORT Primary Care Unavailable LOS DAVENPORT Primary Care Unavailable TESTJUANCARLOS WEBBEW Referring Unavailable LOS DAVENPORT Primary Care Unavailable TESTRAGILES MAYES Referring Unavailable JANENELOS Umaña Primary Care Unavailable TESTRAKE, GILES Referring Unavailable TESTRAKE, GILES Attending Unavailable JANENELOS Umaña Attending Unavailable LOS DAVENPORT Primary Care Unavailable SCHARPFLEV Referring Unavailable SCHARPFLEV Attending Unavailable LOS DAVENPORT Primary Care Unavailable LOS DAVENPORT Referring Unavailable JANENELOS Umaña Primary Care Unavailable JANENELOS Umaña Referring Unavailable JANENELOS Primary Care Unavailable JANENE, LOS Escobar Referring Unavailable JANENE, LOS Escobar Primary Care Unavailable Allergies Allergy Classification Reported Allergen(s) Allergy Type Date of Onset Reaction(s) Facility (20 sources) celery allergenic extract; Translations: [CELERY] Drug Allergy 09-02-2010 Other: See Comments [facility] (20 sources) Lisinopril; Translations: [LISINOPRIL] Drug Allergy 12-27-2014 Cough [facility] Work Phone: Medications Current Medications Medication Drug [...] Translations: [Hypothyroidism, unspecified] Onset: 09-09-2006 Chronic Unclassified (19 sources) Disorder of rotator cuff; Translations: [Rotator [...] 84.37 kg Los Davenport MD Work Phone: [facility] 07-01-2023 16:03-0500 Diastolic blood pressure 82 mm[Hg] Los Davenport MD Work Phone: [facility] 07-01-2023 16:03-0500 Heart rate 84 /min Los Davenport MD Work Phone: [facility] 07-01-2023 16:03-0500 Systolic blood pressure 124 mm[Hg] Los Davenport MD Work Phone: [facility] 12-31-2022 10:15-0400 Body weight 84.82 kg Los Davenport MD Work Phone: [facility] 12-31-2022 10:15-0400 Diastolic blood pressure 74 mm[Hg] Los Davenport MD Work Phone: [facility] 12-31-2022 10:15-0400 Heart rate 93 /min Los Davenport MD Work Phone: [facility] 12-31-2022 10:15-0400 Systolic blood pressure 112 mm[Hg] Los Davenport MD Work Phone: [facility] 11-21-2022 08:40-0400 Body height 160 cm Los Davenport MD Work Phone: [facility] 11-21-2022 08:40-0400 Body temperature 98.71 [degF] Los Davenport MD Work Phone: [facility] 11-21-2022 08:40-0400 Body weight 83.92 kg Los Davenport MD Work Phone: [facility] 11-21-2022 08:40-0400 Diastolic blood pressure 76 mm[Hg] Los Davenport MD Work Phone: [facility] 11-21-2022 08:40-0400 Heart rate 90 /min Los Davenport MD Work Phone: [facility] 11-21-2022 08:40-0400 SaO2% (BldA) [Mass fraction] 97 % Los Davenport MD Work Phone: [facility] 11-21-2022 08:40-0400 Systolic blood pressure 122 mm[Hg] Los Davenport MD Work Phone: [facility] 08-04-2022 15:26-0500 Body height 160 cm Los Davenport MD Work Phone: [facility] 08-04-2022 15:26-0500 Body weight 86.18 kg Los Davenport MD Work Phone: [facility] 08-04-2022 15:26-0500 Diastolic blood pressure 68 mm[Hg] Los Davenport MD Work Phone: [facility] 08-04-2022 15:26-0500 Heart rate 90 /min Los Davenport MD Work Phone: [facility] 08-04-2022 15:26-0500 SaO2% (BldA) [Mass fraction] 98 % Los Davenport MD Work Phone: [facility] 08-04-2022 15:26-0500 Systolic blood pressure 114 mm[Hg] Los Davenport MD Work Phone: [facility] 06-18-2022 09:32-0500 Body weight 86.18 kg Los Davenport MD Work Phone: [facility] 06-18-2022 09:32-0500 Diastolic blood pressure 80 mm[Hg] Los Davenport MD Work Phone: [facility] 06-18-2022 09:32-0500 Heart rate 79 /min Los Davenport MD Work Phone: [facility] 06-18-2022 09:32-0500 Respiratory rate 20 /min Los Davenport MD Work Phone: [facility] 06-18-2022 09:32-0500 SaO2% (BldA) [Mass fraction] 96 % Los Davenport MD Work Phone: [facility] 06-18-2022 09:32-0500 Systolic blood pressure 138 mm[Hg] Los Davenport MD Work Phone: [facility] 12-09-2021 10:41-0400 Body weight 82.56 kg Los Davenport MD Work Phone: [facility] 12-09-2021 10:41-0400 Diastolic blood pressure 78 mm[Hg] Los Davenport MD Work Phone: [facility] 12-09-2021 10:41-0400 Heart rate 76 /min Los Davenport MD Work Phone: [facility] 12-09-2021 10:41-0400 Systolic blood pressure 134 mm[Hg] Los Davenport MD Work Phone: [facility] Encounters Encounter Date Encounter Type Care Provider Facility Start: 09-04-2023 ambulatory Radha Fu MA [facility] [place] Procedures Date Procedure Procedure Detail Performing Clinician [...] Activity Detail Author Start: 11-14-2030 Colonoscopy COLONOSCOPY [facility] Start: 11-14-2030 COLORECTAL CANCER SCREENING COLORECTAL CANCER SCREENING [facility] Start: 11-14-2030 Screening for malign ant neoplasm of colon [facility] Start: 07-23-2027 Urine microalbumin profile [facility] Start: 07-01-2024 Annual PCP Team [employer] Shaper suzanne Disease Visit Annual PCP Team Chronic Disease Visit [facility] Start: 06-23-2024 Complete blood count Hemoglobin/Bud tocrit [facility] Start: 06-23-2024 Creatinine measurement Serum Creatin ine [facility] Start: 06-23-2024 Hemoglobin/Hematocrit Hemoglobin/Hem atocrit [facility] Start: 06-23-2024 Hepatitis B screening Urine Al bumin:Creatinine Ratio [facility] Start: 06-23-2024 Hepatitis B surface antibody level LDL Cholesterol [facility] Start: 06-23-2024 Serum Creatinine Serum Creatinine Cl [facility] Start: 06-16-2024 Glaucoma screening Dilated Retinal E xam [facility] Start: 06-16-2024 Hepatitis C antibody , confirmatory test Dilated Retinal Exam [facility] Start: 01-24-2024 Influenza vaccination Influenza Vacc ine (#1) [facility] Immunizations Immunization Date Immunization Notes Care Provider Fa cility 06-16-2022 COVID-19 booster vac cine, age 12+ yr, bivalent (MODERNA) Los Davenport MD Work Phone: [facility] 10-24-2020 COVID-19 vaccine, fu ll dose (MODERNA) Los Davenport MD Work Phone: [facility] 09-26-2020 COVID-19 vaccine, fu ll dose (MODERNA) Los Davenport MD Work Phone: [facility] 07-02-2018 pneumococcal polysaccharide vaccine, 23 valent Los Davenport MD Work Phone: [facility] 07-02-2018 influenza virus vacc ine, unspecified formulation Los Davenport MD Work Phone: [facility] 07-23-2017 tetanus toxoid, redu adonay diphtheria toxoid, and acellular pertussis vaccine, adsorbed Los Davenport MD Work Phone: [facility] 10-08-2015 pneumococcal conjuga te vaccine, 13 valent Los Davenport MD Work Phone: [facility] 08-09-2012 pneumococcal polysaccharide vaccine, 23 valent Los Davenport MD Work Phone: [facility] 04-01-2007 tetanus and diphther ia toxoids, not adsorbed, for adult use Los Davenport MD Work Phone: [facility] Payers Date Payer Category Payer Medicare [facility] A ETNA MEDICARE PPO [id number] 2021-Present [phone] [address] [place] [address] PPO [id number] 2021 Medicare [facility] MEDIC[facility] A ETNA MEDICARE PPO [id number] 2021-Present [phone] [address] [place] [address] PPO [id number] 2021 Medicare [id number] Social History Date Type Detail Facility Start: [facility]17[facility]22 [facility] End: 06-14-1988 History of tobacco use Current smoker [facility] End: 06-14-1988 History of tobacco use Cigarette Smoker [facility] Start: 08-26-2021 End: 07-01-2023 Alcohol intake Current non-drinker of alcohol (finding) [facility] Start: 1950 Sex Assigned At Not on file C [facility] Start: 11-22-2021 End: 03-17-2022 Exposure to SARS-CoV-2 (event) Not sure [facility] Start: 03-17-2022 End: 12-25-2022 Cigarettes smoked current (pack per day) - Reported 1 [facility] Work Phone: Start: 03-17-2022 Tobacco use and exposure Smokeless tobacco non-user [facility] Start: 12-25-2022 End: 12-31-2022 Tobacco use panel [facility] Work Phone: Adult Depression Screening Assessment 0 [facility] Work Phone: Medical Equipment Procedure Code Equipment Code Equipment Original Text Equipment Identifier Dates Dressing Bovine Collagen Glycosaminoglycan Polysiloxane 5x4in Biological - [id number] Start: 01-22-2021 Blue Line Hanger [place] 3.5m m Anastomosis Sterile Microvascular Disposable - [id number] Start: 01-22-2021 Plate Titanium 2 0mm Bone Jalen Reconstruction Mandible - [id number] Start: 01-22-2021 Screw Leibinger [place] 2 2mm Titanium 12mm Bone Lock Cross Pin Head - [id number] Start: 01-22-2021 Screw Leibinger [place] 2 2mm Titanium 6mm Bone Lock Cross Pin Head - [id number] Start: 01-22-2021 Tube Shiley 10.8 mm 6.4mm 6 76mm Tracheostomy Cuff Low Pressure Fenestrate - [id number] Start: 01-22-2021 Start: 12-05-2020 Clinical Notes 06-29-2015 to 09-07-2023 Radha Fu MA - 09/04/2023 7:25 AM ESTTelephone Encounter - Kalli Hauser - 09/02/2023 12:37 PM ESTTelephone Encounter - Vera Wilson Ma - 07/02/2023 11:31 AM ESTPatient Instructions Note Date & Type Note Facility 09-07-2023 Note HNO ID: [id number] Author: RADHA FU MA Service: ? Author Type: Lead Fire Protection Engineer Type: Progress Notes Filed: 09/07/2023 14:11 Note Text: POPULATION HEALTH NAVIGATION OUTREACH Action/FYI Returning patients call as patient left a detail message on my voicemail in regards to initial outreach from 09/04/2023 [employer] Care Gaps 1.3.2024 Discuss/Due for: Mammogram, Influenza Vaccination, Hgb a1c previously ordered Follow Up previously scheduled with Los Davenport MD for 01/01/2024 Outcome: 1st attempt - Left Message Patient Identified by Name and : NO Outreach Outcome/Action Unable to reach patient: Left message Did you use a PCP flex slot to schedule this appointment? N/A Navigation Signature: Radha Fu MA September 07, 2023 2:09 PM [facility] 09-04-2023 Note Patient Outreach (SHELDON TNAV) NICKIE TOMLINSON ([id number]) 1950 F Date Time Provider Department 09/04/23 RADHA FU During your visit today, we recorded the following information about you: Radha Fu MA 09/04/2023 10:28 AM Signed POPULATION HEALTH NAVIGATION OUTREACH Action/ [employer] Care Gaps 1. Discuss/Due for: Mammogram, Influenza Vaccination, Hgb a1c previously ordered Follow Up previously scheduled with Los Davenport MD for 01/01/2024 Outcome: 1st attempt - Left Message 2nd attempt - MyChart message sent Patient Identified by Name and : NO Outreach Outcome/Action Unable to reach patient: Left message MyChart message sent Did you use a PCP flex slot to schedule this appointment? N/A Reason for Outreach Care Gap or Scheduling/Wellness visits Payer: Payor: [employer] MEDICARE / Plan: [employer] MEDICARE PPO / Product Type: PPO / Care Gap Reviewed:: Breast Cancer screening HBA1C Flu Vaccine Reminder: Reminder note to check Health Maintenance for items below Health Maintenance items due: BP Controlled (<130/80) Never done Advance Directive Discussion due on 07/27/2023 Depression Assessment due on 07/27/2023 Navigation Signature: Radha Fu MA September 04, 2023 7:25 AM Radha Fu MA 09/07/2023 2:11 PM Signed POPULATION HEALTH NAVIGATION OUTREACH Action/FYI Returning patients call as patient left a detail message on my voicemail in regards to initial outreach from 09/04/2023 [employer] Care Gaps 1.3.2023 Discuss/Due for: Mammogram, Influenza Vaccination, Hgb a1c previously ordered Follow Up previously scheduled with Los Davenport MD for 01/01/2024 Outcome: 1st attempt - Left Message Patient Identified by Name and : NO Outreach Outcome/Action Unable to reach patient: Left message Did you use a PCP flex slot to schedule this appointment? N/A Navigation Signature: Radha Fu MA September 07, 2023 2:09 PM Allergies As of Date: 09/04/2023 Noted Allergy Reaction CELERY 09/02/2010 14 - Other: See Comments Comments: Migraine LISINOPRIL 12/27/2014 3 - Cough Date Reviewed: 07/01/2023 Reviewed by: Selina Mejia LPN - Fully Assessed Reason for Visit: Population Health Navigation Outreach [3910] Cmt: Sonia Care Gaps 1.3.2023 Prescriptions as of 09/07/2023 - levothyroxine (LEVOXYL) 100 mcg tablet Take 1 tablet by mouth once daily. Take on empty stomach. For Thyroid - pravastatin (PRAVACHOL) 20 mg tablet Take 1 tablet by mouth daily at bedtime. - linaGLIPtin (TRADJENTA) 5 mg tab Take 1 tablet by mouth once daily. - metFORMIN (GLUCOPHAGE) 500 mg tablet Take 1 tablet by mouth twice daily with meals. - triamterene-hydroCHLOROthiazide (MAXZIDE) 75-50 mg per tablet Take 1 tablet by mouth once daily. - losartan (COZAAR) 25 mg tablet Take 1 tablet by mouth once daily. - benzonatate (TESSALON PERLES) 100 mg capsule Take 1 capsule by mouth three times daily as needed for cough. - B6/folic/B12/coffee/phosphatid (NEURIVA PLUS ORAL) Take 1 [...] once daily. 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 [facility] 09-04-2023 Note HNO ID: [id number] Author: RADHA FU MA Service: ? Author Type: Lead Fire Protection Engineer Type: Progress Notes Filed: 09/04/2023 10:28 Note Text: POPULATION HEALTH NAVIGATION OUTREACH Action/ [employer] Care Gaps 1.3.2023 Discuss/Due for: Mammogram, Influenza Vaccination, Hgb a1c previously ordered Follow Up previously scheduled with Los Davenport MD for 01/01/2024 Outcome: 1st attempt - Left Message 2nd attempt - MyChart message sent Patient Identified by Name and : NO Outreach Outcome/Action Unable to reach patient: Left message MyChart message sent Did you use a PCP flex slot to schedule this appointment? N/A Reason for Outreach Care Gap or Scheduling/Wellness visits Payer: Payor: [employer] MEDICARE / Plan: [employer] MEDICARE PPO / Product Type: PPO / Care Gap Reviewed:: Breast Cancer screening HBA1C Flu Vaccine Reminder: Reminder note to check Health Maintenance for items below Health Maintenance items due: BP Controlled (<130/80) Never done Advance Directive Discussion due on 07/27/2023 Depression Assessment due on 07/27/2023 Navigation Signature: Radha Fu MA September 04, 2023 7:25 AM [facility] 09-04-2023 History of Present illness Narrative POPULATION HEALTH NAVIGATION OUTREACH Action/ [employer] Care Gaps 1. Discuss/Due for: Mammogram, Influenza Vaccination, Hgb a1c previously ordered Follow Up previously scheduled with Los Davenport MD for 01/01/2024 Outcome: 1st attempt - Left Message 2nd attempt - MyChart message sent Patient Identified by Name and : NO Outreach Outcome/Action Unable to reach patient: Left message MyChart message sent Did you use a PCP flex slot to schedule this appointment? N/A Reason for Outreach Care Gap or Scheduling/Wellness visits Payer: Payor: [employer] MEDICARE / Plan: [employer] MEDICARE PPO / Product Type: PPO / Care Gap Reviewed:: Breast Cancer screening HBA1C Flu Vaccine Reminder: Reminder note to check Health Maintenance for items below Health Maintenance items due: BP Controlled (<130/80) Never done Advance Directive Discussion due on 07/27/2023 Depression Assessment due on 07/27/2023 Navigation Signature: Radha Fu MA September 04, 2023 7:25 AM documented in this encounter [facility] 09-02-2023 Miscellaneous Notes I left a voicemail and a iListhart message to get reschedule with Dr. Valle due to surgery. documented in this encounter [facility] 07-02-2023 Miscellaneous Notes Pt notified of lab results and follow up Thyroid is a little low. Change levoxyl to 100 mcg a day . Recheck tsh in six weeks. documented in this encounter [facility] 07-01-2023 Note HNO ID: [id number] Author: Los Davenport MD Service: ? Author [...] Abs Lymph 1.00 - 4.00 k/uL 1.53 [place]% % 14.0 Abs [place] <0.87 k/uL 0.74 Eosin% % 11.3 Abs [...] disease) Hx ulcer (more content not included)... [facility] 07-01-2023 History of Present illness Narrative Patient [...] Abs Lymph 1.00 - 4.00 k/uL 1.53 [place]% % 14.0 Abs [place] <0.87 k/uL 0.74 Eosin% % 11.3 Abs [...] mention of hemorrhage) DVT (deep venous thrombosis) ([facility]) 2002 bilateral leg DVT during chemo/radiation GERD [...] stable. Los Davenport documented in this encounter [facility] 06-13-2023 Note HNO ID: [id number] Author: Trudy King Service: ? Author Type: ? Type: Progress Notes Filed: 06/13/2023 2:46 PM Note Text: POPULATION HEALTH NAVIGATION OUTREACH Action/FYI Pt due for mammogram Flu shot [facility] 06/16/23 Called and spoke with pt Pt [...] Care Gap or Scheduling/Wellness visits Payer: [facility]: [facility] / Plan: A[employer] MEDICARE PPO / [...] Trudy King June 13, 2023 2:43 PM [facility] 06-13-2023 History of Present illness Narrative POPULATION [...] Care Gap or Scheduling/Wellness visits Payer: Payor: [employer] MEDICARE / Plan: AETNA MEDICARE PPO / [...] 2023 2:43 PM documented in this encounter [facility] 06-13-2023 Note Patient Outreach (SHELDON TNAV) NICKIE TOMLINSON ([id number]) 1950 F Date Time Provider Department 06/13/23 TRUDY KING (KARIN) NETNAV During your visit today, we recorded the following information about you: Trudy King 06/13/2023 2:46 PM Signed POPULATION HEALTH NAVIGATION OUTREACH Action/ Pt due for mammogram Flu shot [facility] [...] Care Gap or Scheduling/Wellness visits Payer: [place]: [place] / Plan: AETNA MEDICARE PPO / [...] Visit: Population Health Navigation Outreach [3910] Cmt: Loanna care gaps Prescriptions as of 06/13/2023 - [...] Encounter Status:Closed by TRUDY KING on 06/13/23 [facility] 05-28-2023 Note HNO ID: [id number] Author: Tung Carlin RN Service: ? Author Type: Registered Nurse Type: Progress Notes Filed: 05/28/2023 12:37 PM Note Text: ACM LISA RN Action/FYI: Medication Adherence review completed per request of payer for: Statin Use in Patients with Diabetes MEDICATION - metformin 500 mg tablet take one tablet by mouth twice daily with meals LAST FILL: 03/02/23 - Day Supply REFILL DUE: 05/31/23 NO PROVIDER ACTION REQUIRED Patient identified by name and date of . Patient Attributed To: JAMEE Payer: Sonia ETIENNE Reason for review or outreach: Medication Adherence Medication Adherence Review Details: Statin use in person with Diabetes (SUPD) Summary / Findings: MEDICATION - metformin 500 mg tablet take one tablet by mouth twice daily with meals LAST FILL: 03/02/23 - Day Supply REFILL DUE: 05/31/23 Action Taken: Data submitted to FX Aligned message to patient refill reminder Contact made with patient: No, Chart review only. [facility] 05-28-2023 Note Patient Outreach (NE TNAV) NICKIE TOMLINSON ([id number]) 1950 F Date Time Provider Department 05/28/23 TUNG CARLIN During your visit today, we recorded the following information about you: Tung Carlin RN 05/28/2023 12:37 PM Signed [facility] LISA RN Action/FYI: Medication Adherence review completed per request of payer for: Statin Use in Patients with Diabetes MEDICATION - metformin 500 mg tablet take one tablet by mouth twice daily with meals LAST FILL: 03/02/23 - Day Supply REFILL DUE: 05/31/23 NO PROVIDER ACTION REQUIRED Patient identified by name and date of . Patient Attributed To: QAE Payer: Sonia ETIENNE Reason for review or outreach: Medication Adherence Medication Adherence Review Details: Statin use in person with Diabetes (SUPD) Summary / Findings: MEDICATION - metformin 500 mg tablet take one tablet by mouth twice daily with meals LAST FILL: 03/02/23 - Day Supply REFILL DUE: 05/31/23 Action Taken: Data submitted to Payer MyChart message to patient refill reminder Contact made with patient: No, Chart review only. Allergies As of Date: 05/28/2023 Noted Allergy Reaction CELERY 09/02/2010 14 - Other: See Comments Comments: Migraine LISINOPRIL 12/27/2014 3 - Cough Date Reviewed: 04/10/2023 Reviewed by: Sania Rodriguez MA - Fully Assessed Reason for Visit: ACM LISA RN [[id number]] Cmt: Medication Adherence review completed per request [...] Encounter Status:Closed by TUNG CARLIN on 05/28/23 [facility] 04-15-2023 Miscellaneous Notes Left message for patient [...] on vacation. She was told she cannot chart picker her refill early without approval from pcp. Uses [facility] in [place]. Please advise if this can be done. [phone]. documented in this encounter [facility] 04-13-2023 Note HNO ID: [id number] Author: Lev Valle MD Service: ? Author Type: Physician Type: Progress Notes Filed: 04/13/2023 9:08 AM Note Text: dictated [facility] [facility] HNO ID: [id number] Author: Jacob Thomas Service: ? Author Type: ? Type: Progress Notes Filed: 04/02/2023 3:21 PM Note Text: POPULATION HEALTH NAVIGATION OUTREACH Action/04/02/23 Discuss/due [employer] care gaps: ~Screening Mammogram ~Flu vaccine ~Dilated Retinal Exam due 06/16/23 or after Outcome: ~Left message on voice mail and sent Orteqhart message. Patient Identified by Name and : [...] Health Navigator April 02, 2023 3:18 PM [facility] 04-02-2023 History of Present illness Narrative POPULATION HEALTH NAVIGATION OUTREACH Action/I 04/02/23 Discuss/due [employer] care gaps: ~Screening Mammogram ~Flu vaccine ~Dilated Retinal Exam due 06/16/23 or after Outcome: ~Left message on voice mail and sent IntegriChain message. Patient Identified by Name and : NO Outreach Outcome/Action Unable to reach patient: Left message People Sportst message sent Did you use a PCP [...] 2023 3:18 PM documented in this encounter [facility] 04-02-2023 Note Patient Outreach (SHELDON TNAV) NICKIE TOMLINSON ([id number]) 1950 F Date Time Provider Department 04/02/23 JACOB JOYCE (PSS)NAV During your visit today, we recorded the following information about you: Jacob Thomas 04/02/2023 3:21 PM Signed POPULATION HEALTH NAVIGATION OUTREACH Action/FYI 04/02/23 Discuss/due [employer] care gaps: ~Screening Mammogram ~Flu vaccine ~Dilated Retinal Exam due 06/16/23 or after Outcome: ~Left message on voice mail and sent IntegriChain message. Patient Identified by Name and : NO Outreach Outcome/Action Unable to reach patient: Left message Orteqhart message sent Did you use a PCP [...] Encounter Status:Closed by JACOB THOMAS on 04/02/23 [facility] 12-31-2022 Note HNO ID: [id number] Author: Los Davenport MD Service: ? Author [...] Abs Lymph 1.00 - 4.00 k/uL 1.24 Desoto% % 14.0 Abs Desoto <0.87 k/uL 0.72 Eosin% % 12.8 Abs [...] Social History Tobac (more content not included)... [facility] 12-31-2022 History of Present illness Narrative No [...] Abs Lymph 1.00 - 4.00 k/uL 1.24 Desoto% % 14.0 Abs Desoto <0.87 k/uL 0.72 Eosin% % 12.8 Abs [...] Los Davenport MD documented in this encounter [facility] 12-26-2022 Note HNO ID: [id number] Author: RT Rocio(R) Service: ? Author Type: Technologist Type: Progress [...] PERIPHERAL IV DATA: Not applicable SIGNED BY: RT Rocio(R) December 26, 2022 12:17 PM [facility] 12-26-2022 Note HNO ID: [id number] Author: Giles Luna Service: ? Author Type: [...] nodes of head, face, and neck 2002 Current Outpatient Medications Medication Sig metFORMIN (GLUCOPHAGE) [...] easily, and sw (more content not included)... [facility] 12-26-2022 Note HNO ID: [id number] Author: Nohemi Escudero MA Service: ? Author Type: Lead Fire Protection Engineer Type: Progress Notes Filed: 12/26/2022 12:22 PM [...] also depends on the shoes she wears. [facility] 12-26-2022 Instructions Giles Luna - 12/26/2022 11:24 AM EDT Diabetes Foot [...] (or decreased sensation in your feet) a body welder should always cut your toenails. Be Careful [...] Go to your health care provider or body welder to treat these conditions. documented in this encounter [facility] 12-26-2022 History of Present illness Narrative Images [...] nodes of head, face, and neck 2002 Current Outpatient Medications Medication Sig metFORMIN (GLUCOPHAGE) [...] Objective: Patient presents to clinic ambulating in [facility] Constitutional: Pt is a well developed 72 [...] whether stage 3a or 3b CKD (HCC) (R09.89) Diminished pulses in lower extremity Plan: [...] shoes she wears. documented in this encounter [facility] 12-24-2022 Note Patient Outreach (IN TMMN) NICKIE TOMLINSON ([id number]) 1950 F Date Time Provider Department 12/24/22 LOS DAVENPORT During your visit today, we recorded the following information about you: Allergies As of Date: 12/24/2022 Noted Allergy Reaction CELERY 09/02/2010 14 - Other: See Comments Comments: Migraine LISINOPRIL 12/27/2014 3 - Cough Date Reviewed: 11/21/2022 Reviewed by: Lana Quintero - Fully Assessed Visit Diagnosis:Encounter for screening mammogram for breast cancer [Z12.31] Order(s):[facility] SCREENING [[id number]] Order #: [id number] FUTURE Prescriptions as of 12/29/2022 - metFORMIN [...] with stage 3 chroni*06/06/2021 Encounter Status:Closed by TERESSA PRODUSER on 12/29/22 [facility] 12-01-2022 Miscellaneous Notes ESTELLA 11/21/22 NOV 12/25/22 [...] pharmacy. No need to notify patient. Kellie Paez documented in this encounter [facility] 11-22-2022 Instructions Los Davenport MD - 11/22/2022 11:45 AM EDT Images from the original note were not included. FACT SHEET FOR PATIENTS, PARENTS, AND CAREGIVERS EMERGENCY USE AUTHORIZATION (EUA) OF PAXLOVID FOR CORONAVIRUS DISEASE 2019 (COVID-19) You are being given this Fact Sheet because your healthcare provider believes it is necessary to provide you with PAXLOVID for the treatment of kvjc-jj-uiyszxkg coronavirus disease (COVID-19) caused by the SARS-CoV-2 [...] virus. COVID-19 illnesses have ranged from very tcta-ay-buedwu, including illness resulting in . While information [...] (40 kg)] with a current diagnosis of bpwz-ou-qnhdvpvm COVID-19 and who are at high risk for progression to severe COVID-19, including hospitalization or . PAXLOVID is investigational because it is still being studied. There is limited information about the safety and effectiveness of using PAXLOVID to treat people with uino-tq-lppfhycy COVID-19. The FDA has authorized the emergency use of PAXLOVID for the treatment of kuwn-ue-lakgfkim COVID-19 in adults and children [12 years of age and older weighing at least 88 pounds (40 kg)] with a current diagnosis of mksg-ah-ihpfryun COVID-19 and who are at high risk [...] the merdicines you take, including prescription and azrw-tyh-uqrlkur medicines, vitamins, and herbal supplements. Your healthcare [...] Morning or Evening, depending on when you chart picker your prescription, or as recommended by your [...] lovastatin ranolazine dihydroergotamine lumacaftor/ivacaftor rifampin dronedarone lurasidone Incci s Wort (hypericum perforatium) eletriptan methylergonovine simvastatin [...] (remdesivir) is FDA-approved for the treatment of ayjw-er-wjqgkzqj COVID-19 in certain adults and children. Talk with your doctor to see if Veklury is appropriate for you. Like PAXLOVID, FDA may also allow for the emergency use of other medicines to treat people with COVID-19. Go to https://www.fda.gov/emergency-pre bbeudhmxj-xxy-hyyggjxw/mcm-legal- elthgsbmfy-qza-xhcilb-framework/e wuwfhmwk-gri-vrsrrmeaffbnl for information on the emergency use of [...] if I am or ? There is casino host treating women or mothers with PAXLOVID. For [...] for examples of PAXLOVID Dose Packs) to [employer] at www.fda.gov/medwatch or call 1-045-XST6502 or you can report side effects to DrAvailable at the contact information provided below. Website Fax number Telephone number [employer] How should I store PAXLOVID? Store PAXLOVID [...] (EUA). The EUA is supported by a [place] of Health and Human Service (HHS) declaration that circumstances exist to justify the emergency use of drugs and biological products during the COVID-19 pandemic. PAXLOVID for the treatment of kapg-eu-dhenoncd COVID-19 in adults and children [12 years [...] telephone number provided below. Website Telephone number wwwVouchedFor (9-762-P05-QPKG) You can also go to www.[employer] or call for more information. [employer] Distributed by [employer] [place] [place] [address] [id number] Revised: 08/2022 documented in this encounter [facility] 11-22-2022 Miscellaneous Notes Patient with positive covid. Already discussed using antivirals if positive. Nirmatrelvir/Ritonavir (Paxlovid) Eligibility and Patient Discussion [facility] Formulary Restriction Criteria: Adult outpatients 18 years [...] consent to proceeding with nirmatrelvir/ritonavir treatment. Los Davenport MD November 22, 2022 11:51 AM documented in this encounter [facility] 11-21-2022 Note HNO ID: [id number] Author: Los Davenport MD Service: ? Author [...] op appearance. Opal (more content not included)... [facility] 11-21-2022 History of Present illness Narrative Patient [...] 4 - Moderate documented in this encounter [facility] documented in this encounter [facility]03-27-2023 Miscellaneous Notes* Telephone Encounter - William Jensen LPN - 10/20/2022 1:07 PM EDT Patient phones requesting refills as follows: Requested Prescriptions Pending Prescriptions Disp Refills levothyroxine (LEVOXYL) 88 mcg tablet 90 tablet 0 Sig: Take 1 tablet by mouth once daily. Take on empty stomach. For Thyroid ESTELLA 08/04/22 NOV 12/25/22 Please review and advise. William Jensen LPN * Telephone Encounter - Tung Paez - 10/20/2022 12:34 PM EDT Patient has [...] patient. Tung Rivas Pss [facility]23 NoteHNO ID: [id number] Author: Lev Valle MD Service: ? Author Type: Physician Type: Progress Notes Filed: 10/15/2022 2:39 PM Note Text: [facility] Note CC: pT1Nx SCC of [...] CXRT with salvage neck (more content not included)...[facility]03-22-2023 History of Present illness Narrative* Lev Valle MD - 10/15/2022 2:37 PM EDT [facility] Note CC: pT1Nx SCC of [...] from prior note Kari [facility] Nurse Note* Evon Sofia MA - 10/15/2022 10:02 AM EDT Tobacco Use: 1 packs/day, for 20 years. Quit 06/14/1988. Types: Cigarettes Was smoking cessation packet given? N/A - Patient is a non-smoker or quit >1 year ago. Was a referral initiated?N/A Patient is a non-smoker [facility] History of Present illness Narrative* Los [...] been pushing fluids. No bowel changes or pipe liner changes. MEDICATIONS: Current Outpatient Medications Medication Sig [...] CAP Los Davenport MD [facility] Miscellaneous Notes* Telephone Encounter - Gabriela Peters LPN - 07/28/2022 10:12 AM EST Call received from pt. She will be out of medication 07/29/2022 Last OV: 06/18/22 Future OV: 12/25/22 Elyse Peters LPN [facility] Instructions* Patient Instructions* Los Davenport MD - 06/18/2022 9:57 AM EST Take prevacid daily for the next month. Use claritin or pedro over the counter for drainage. Call with an update in a months [facility] History of Present illness Narrative* Los Davenport [...] Abs Lymph 1.00 - 4.00 k/uL 1.46 Desoto% % 13.4 Abs Desoto <0.87 k/uL 1.03 (H) Eosin% % 9.0 [...] one. DILATED RETINAL EXAM -got them done Luke VITALS: BP 138/80 Pulse 79 Resp 20 [...] RTO in six months [facility] Miscellaneous Notes* Telephone Encounter - William Jensen [...] patient. Tung Rivas Pss documented [facility] History of Present illness Narrative* Jacob Joyce Pss - 03/26/2022 4:55 PM EDT POPULATION HEALTH NAVIGATION OUTREACH Action/FYI: [employer] Care Gaps 03/26/22 Discuss/Due: ~Breast Cancer Screening ~Flu Vaccine ~HgBA1C ~Dilated Retinal Exam due 06/14/22 Outcome: ~Left voice mail and sent MyChart message Pt identified by name and : [...] 26, 2022 4:55 PM documented [facility] History of Present illness Narrative* Lev Valle MD - 03/17/2022 10:15 AM EDT [facility] Note CC: H/o Oral cavity [...] of the procedure. Rick Chavez MD ASSESSMENT: Nickie Tomlinson is a 71 year [...] Follow-up in clinic in 3 months Rick Chavez MD for the service of Lev Valle MD Medical Decision Making: Medical Decision Making Level: 1 - N/A March 18, 2022 I participated in the history and physical exam of Nickie Tomlinson. I discussed the management of Nickie Tomlinson with the resident. I reviewed the resident's note and agree with the documented findings and plan of care. Lev Valle MD documented in this [facility] Nurse Note* Estella Grayson Ma - 03/17/2022 9:59 AM EDT Tobacco Use: 1 packs/day, for 20 years. Quit 06/14/1988. Types: Cigarettes Was smoking cessation packet given? N/A - Patient is a non-smoker or quit >1 year ago. Was a referral initiated?N/A Patient is a non-smoker [facility]-2022 Miscellaneous Notes* Telephone Encounter - William Jensen [...] patient. Crista Reed Pss documented in [facility]06[facility]-2022 Miscellaneous Notes* Telephone Encounter - Yolanda Lama LPN - 12/26/2021 9:58 AM EDT Last office visit 12/09/2021 * Telephone Encounter - Radha Vicente Pss - 12/26/2021 9:43 AM EDT Patient is asking that her script for TRIAMTERENE 75 MG-HYDROCHLOROTHIAZIDE 50 MG TABLET be changedto a 90 day supply. (the request has been updated and pended, but refills have been left off at doctor's discretion). * Telephone Encounter - Radha Vicente Pss - 12/26/2021 9:40 AM EDT Pharmacy verified in Epic Patient has been identified by name and [...] advise. Radha Vicente Pss documented in [facility] History of Present illness Narrative* Los Davenport [...] Abs Lymph 1.00 - 4.00 k/uL 1.39 Desoto% % 13.9 Abs Desoto <0.87 k/uL 0.79 Eosin% % 23.6 Abs [...] six months and prn. documented in this [facility]22 Nurse Note* GITA Arce - 12/02/2021 2:49 PM EDT Tobacco Use: 1 packs/day, for 20 years. Quit 06/14/1988. Types: Cigarettes Was smoking cessation packet given? N/A - Patient is a non-smoker or quit >1 year ago. Was a referral initiated?N/A Patient is a non-smoker documented [facility] History of Present illness Narrative* Lev Valle MD - 12/02/2021 2:38 PM EDT [facility] Note CC: pT1Nx SCC of [...] care. Lev Valle MD documented in [facility] History of Present illness Narrative* Jacob Joyce Pss - 11/13/2021 1:11 PM EDT POPULATION HEALTH NAVIGATION OUTREACH Action/FYI: [employer] Care Gaps Discuss/Due: Advance Directives Breast Cancer Screening Dilated Retinal Exam 06/14/22 or after Outcome: Left message on voice mail and sent Orteqhart message. Pt identified by name and : [...] 13, 2021 1:11 PM documented in [facility] encounter[facility]04-[facility]-2022 Miscellaneous Notes* Telephone Encounter - Jenelle Bower [...] notify patient. Tung Paez documented in this encounter[facility]12-06-2021 NoteHNO ID: [id number] Author: Whitney Isaac APRN.RASHAD Service: ? Author Type: Nurse Practitioner Type: [...] visit on 06/13/2021. She has assistance of [facility] for wound care at home. She [...] guidelines link. FAMILY HIS (more content not included)...[id number] NoteHNO ID: [id number] Author: Whitney Isaac APRN.BRICKLAYER PAVING BRICK Service: ? Author Type: Nurse Practitioner Type: [...] leg wound/graft site. She has assistance of [facility] for wound care at home. She [...] disease) Hx ulcer - Hypertension - Hypothyroidism 2002 - Malignant neoplasm of base of tongue [...] Father - Hypertension Mot (more content not included)...[facility] [id number] History of Past illness Narrative* Problem Noted Date Resolved Date Ulcer of right leg, with fat layer exposed 06/0612/09/2021 Severe protein-calorie malnutrition 01/23/2021 12/09/2021 Last Assessment & Plan: Assessment: Deangelo PLAN: TF, nutrition valentino hodgson teaching Neck mass 01/17/2021 12/09/2021 Pain in [...] of this encounter (statuses as of 12/09/2021) [facility] History of Past illness Narrative* Problem Noted [...] of this encounter (statuses as of 12/26/2021) [facility] History of Past illness Narrative* Problem Noted [...] of this encounter (statuses as of 01/24/2022) [facility] History of Past illness Narrative* Problem Noted [...] of this encounter (statuses as of 03/18/2022) [facility] History of Past illness Narrative* Problem Noted [...] of this encounter (statuses as of 03/26/2022) [facility] History of Past illness Narrative* Problem Noted [...] of this encounter (statuses as of 05/20/2022) [facility] History of Past illness Narrative* Problem Noted [...] of this encounter (statuses as of 06/18/2022) [facility] History of Past illness Narrative* Problem Noted [...] of this encounter (statuses as of 07/31/2022) [facility] History of Past illness Narrative* Problem Noted [...] of this encounter (statuses as of 08/04/2022) [facility] of Past illness Narrative* Problem Noted Date Resolved Date Ulcer of right leg, with fat layer exposed 06/0612/09/2021 Severe protein-calorie malnutrition 01/23/2021 12/09/2021 Last Assessment & Plan: Assessment: Corpak PLAN: TF, valentino perkins teaching Neck mass 01/17/2021 12/09/2021 Stage 3 [...] of this encounter (statuses as of 10/15/2022) [facility] of Past illness Narrative* Problem Noted [...] of this encounter (statuses as of 10/20/2022) [facility] of Past illness Narrative* Problem Noted [...] of this encounter (statuses as of 11/21/2022) [facility] of Past illness Narrative* Problem Noted [...] of this encounter (statuses as of 11/22/2022) [facility] of Past illness Narrative* Problem Noted [...] of this encounter (statuses as of 12/01/2022) [facility] Narrative* Problem Noted [...] of this encounter (statuses as of 12/26/2022) [facility] illness Narrative* Problem Noted [...] of this encounter (statuses as of 12/29/2022) [facility] illness Narrative* Problem Noted [...] of this encounter (statuses as of 12/31/2022) [facility] illness Narrative* Problem Noted [...] eval hen teaching Neck mass 01/17/2021 12/09/2021 Stage [...] of this encounter (statuses as of 04/03/2023) [facility] Narrative* Problem Noted [...] of this encounter (statuses as of 04/15/2023) [facility] illness Narrative* Problem Noted [...] of this encounter (statuses as of 06/13/2023) [facility] Narrative* Problem Noted [...] of this encounter (statuses as of 07/02/2023) [facility] illness Narrative* Problem Noted [...] of this encounter (statuses as of 07/02/2023) [facility] Narrative* Problem Noted [...] as of this encounter (statuses as of 09/02/2023) [facility] of Past illness Narrative* Problem Noted [...] as of this encounter (statuses as of 09/04/2023) [facility] NoteHNO ID: [id number] Author: Whitney Isaac APRN.BRICKLAYER PAVING BRICK Service: ? Author Type: Nurse Practitioner Type: [...] leg wound/graft site. She has assistance of [facility] for wound care at home. 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 Author Type: Nurse Practitioner Type: [...] leg wound/graft site. She has assistance of [facility] for wound care at home. She [...] Laterality Date - COLONOSCOP W/ OR W/O [facility] SPEC 06/26/2009 repeat due 2019 - JOINT [...] Tab Take 1 ta (more content not included)...[facility] 04-24-2021 NoteHNO ID: [id number] Author: Whitney Isaac APRN.BRICKLAYER PAVING BRICK Service: ? Author Type: Nurse Practitioner Type: [...] leg wound/graft site. She has assistance of [facility] for wound care at home. She [...] mg EC tablet Take (more content not included)...[facility] [id number] NoteHNO ID: [id number] Author: Whitney Isaac APRN.BRICKLAYER PAVING BRICK Service: ? Author Type: Nurse Practitioner Type: [...] or osseous lesion. Pt was referred to [facility] for assistance with further wound [...] disease) Hx ulcer - Hypertension - Hypothyroidism 2002 - Malignant neoplasm of base of tongue [...] guidelines link. coffee xt/phospha (more content not included)...[facility] [id number] History of Past illness Narrative* Problem Noted [...] of this encounter (statuses as of 10/29/2021) [facility] History of Past illness Narrative* Problem Noted [...] of this encounter (statuses as of 11/13/2021) [facility] of Past illness Narrative* Problem Noted [...] of this encounter (statuses as of 12/03/2021) [facility]* Diagnosis Hypothyroidism, unspecified type [facility]* Diagnosis 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, unspecified site [facility]* Diagnosis Essential hypertension- Primary Unspecified essential [...] mouth, unspecified site [facility]* Diagnosis Essential hypertension Unspecified essential hypertension [facility]* Diagnosis Hypothyroidism, unspecified type [facility]* Diagnosis History of oropharyngeal cancer- Primary Personal history of malignant neoplasm of other and unspecified parts of oral cavity and pharynx History of radiation therapy Personal history of irradiation, presenting hazards to health [facility]* Diagnosis Hypothyroidism, unspecified type- Primary Cancer [...] Cough, unspecified type documented in this encounter [facility] [facility] Diagnosis Hyperlipidemia with target LDL less than 100 Other and unspecified hyperlipidemia Hypothyroidism, unspecified type [facility] Diagnosis Acute cystitis with hematuria- Primary Acute cystitis documented in this encounter [facility]* Diagnosis 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, face, and neck (HCC)- Primary Malignant neoplasm of connective and other soft tissue of head, face, and neck documented in this encounter [facility]* Diagnosis Hypothyroidism, unspecified type documented in this encounter [facility] note* Diagnosis COVID-19- Primary documented in this encounter [facility] note* Diagnosis Acquired hallux valgus of left [...] involving cardiovascular system documented in this encounter [facility] note* Diagnosis Encounter for screening mammogram for breast cancer documented in this encounter [facility] note* Diagnosis Hyperlipidemia with target LDL less [...] face, and neck documented in this encounter [facility] note* Diagnosis Essential hypertension- Primary Unspecified essential [...] mouth, unspecified site [facility] Diagnosis Hypothyroidism, unspecified type documented in this encounter [place] for referral (narrative)* Outpatient Procedure (Routine) - [...] LEVEL Giles Luna [address] [place] [address] [facility] [address] [place] [address] Referral ID Status Reason Start Date Expiration Date Visits Requested Visits Authorized [id number] Pending Review Auto-Generat ed Referral 12/26/2022 12/26/2023 [...] 3 VIEWS Giles Luna [address] [place] [address] Xr Imaging Referral ID Status Reason Start Date Expiration Date V isits Requested Visits Authorized [id number] Closed Auto-Generate d Referral 12/26/2022 01/25/2024 1 1 [place] for referral (narrative)* Diagnostic Procedure Only (Routine) - Pending Review Specialty Diagnoses / Procedures Referred By Jamie lai Referred To Contact [facility] Diagnoses Encounter for screening mammogram for breast cancer Procedures [facility] SCREENING SCREENING MAMMOGRAPHY BI 2-VIEW BREAST INC CAD Los Davenport MD [address] [place] [address] [facility] [address] [place] [address] Referral ID Status Reason Start Date Expiration Date Visits Requested Visits Authorized [id number] Pending Review Auto-Generat ed Referral 12/24/2022 01/23/2024 1 1 [facility] Summary Purpose Family History No Family History Records FoundNo Family History Records Found Advance Directives No Advanced Directives Records FoundDocuments on File Type Date Recorded Patient Public Health Staff Nurse Expl anation Advance Directive(s) 07/10/2009 8:58 PM Latest Code Status on File Code Status Date Activated Date Inactivated Comments Full Code 03/28/2021 5:27 PM Full Code 02/01/2021 10:56 AM 02/21/2021 5:27 AM Documents on File Type Date Recorded Patient Public Health Staff Nurse Expl anation Advance Directive(s) 01/31/2021 9:02 AM Advance Directive(s) 01/14/2021 4:17 PM Advance Directive(s) 11/14/2020 6:58 AM Advance Directive(s) 11/08/2020 8:56 AM Advance Directive(s) 07/10/2009 8:58 PM Documents on File Type Date Recorded Patient Public Health Staff Nurse Expl anation Advance Directive(s) 07/10/2009 8:58 PM [...] Indicated Resolved Time COVID-19 Confirmed 11/21/2022 11/21/2022 8:51 PM EDT Additional Source Comments INFORMATION SOURCE (unrecogn ized section and content) DATE CREATED AUTHOR AUTHOR'S ORGANIZ ATION 09/08/2023 [facility] Source Comments (unrecognize d section and content) In the event this informatio n is protected by the Federal Confidentiality of Alcohol and Drug Abuse Patient Records regulations: The Federal rules restrict any use of the information to criminally investigate or prosecute any alcohol or drug abuse patient.[facility] the event this information is protected by the Federal Confidentiality of Alcohol and Drug Abuse Patient Records regulations: The Federal rules restrict any use of the information to criminally investigate or prosecute any alcohol or drug abuse patient.[facility] Hospital[facility] the event this information is protected by the Federal Confidentiality of Alcohol and Drug Abuse Patient Records regulations: The Federal rules restrict any use of the information to criminally investigate or prosecute any alcohol or drug abuse patient.[facility] Hospital[facility] the event this information is protected by the Federal Confidentiality of Alcohol and Drug Abuse Patient Records regulations: The Federal rules restrict any use of the information to criminally investigate or prosecute any alcohol or drug abuse patient.[facility] Hospital[facility] the event this information is protected by the Federal Confidentiality of Alcohol and Drug Abuse Patient Records regulations: The Federal rules restrict any use of the information to criminally investigate or prosecute any alcohol or drug abuse patient.[facility] Hospital[facility] the event this information is protected by the Federal Confidentiality of Alcohol and Drug Abuse Patient Records regulations: The Federal rules restrict any use of the information to criminally investigate or prosecute any alcohol or drug abuse patient.[facility] HospitalIn the event this information is protected by the Federal Confidentiality of Alcohol and Drug Abuse Patient Records regulations: The Federal rules restrict any use of the information to criminally investigate or prosecute any alcohol or drug abuse patient.[facility] HospitalIn the event this information is protected by the Federal Confidentiality of Alcohol and Drug Abuse Patient Records regulations: The Federal rules restrict any use of the information to criminally investigate or prosecute any alcohol or drug abuse patient.[facility] HospitalIn the event this information is protected by the Federal Confidentiality of Alcohol and Drug Abuse Patient Records regulations: The Federal rules restrict any use of the information to criminally investigate or prosecute any alcohol or drug abuse patient.[facility] HospitalIn the event this information is protected by the Federal Confidentiality of Alcohol and Drug Abuse Patient Records regulations: The Federal rules restrict any use of the information to criminally investigate or prosecute any alcohol or drug abuse patient.[facility] HospitalIn the event this information is protected by the Federal Confidentiality of Alcohol and Drug Abuse Patient Records regulations: The Federal rules restrict any use of the information to criminally investigate or prosecute any alcohol or drug abuse patient.[facility] HospitalIn the event this information is protected by the Federal Confidentiality of Alcohol and Drug Abuse Patient Records regulations: The Federal rules restrict any use of the information to criminally investigate or prosecute any alcohol or drug abuse patient.[facility] HospitalIn the event this information is protected by the Federal Confidentiality of Alcohol and Drug Abuse Patient Records regulations: The Federal rules restrict any use of the information to criminally investigate or prosecute any alcohol or drug abuse patient.[facility] HospitalIn the event this information is protected by the Federal Confidentiality of Alcohol and Drug Abuse Patient Records regulations: The Federal rules restrict any use of the information to criminally investigate or prosecute any alcohol or drug abuse patient.[facility] HospitalIn the event this information is protected by the Federal Confidentiality of Alcohol and Drug Abuse Patient Records regulations: The Federal rules restrict any use of the information to criminally investigate or prosecute any alcohol or drug abuse patient.[facility] HospitalIn the event this information is protected by the Federal Confidentiality of Alcohol and Drug Abuse Patient Records regulations: The Federal rules restrict any use of the information to criminally investigate or prosecute any alcohol or drug abuse patient.[facility] HospitalIn the event this information is protected by the Federal Confidentiality of Alcohol and Drug Abuse Patient Records regulations: The Federal rules restrict any use of the information to criminally investigate or prosecute any alcohol or drug abuse patient.[facility] HospitalIn the event this information is protected by the Federal Confidentiality of Alcohol and Drug Abuse Patient Records regulations: The Federal rules restrict any use of the information to criminally investigate or prosecute any alcohol or drug abuse patient.[facility] HospitalIn the event this information is protected by the Federal Confidentiality of Alcohol and Drug Abuse Patient Records regulations: The Federal rules restrict any use of the information to criminally investigate or prosecute any alcohol or drug abuse patient.[facility] HospitalIn the event this information is protected by the Federal Confidentiality of Alcohol and Drug Abuse Patient Records regulations: The Federal rules restrict any use of the information to criminally investigate or prosecute any alcohol or drug abuse patient.[facility] HospitalIn the event this information is protected by the Federal Confidentiality of Alcohol and Drug Abuse Patient Records regulations: The Federal rules restrict any use of the information to criminally investigate or prosecute any alcohol or drug abuse patient.[facility] HospitalIn the event this information is protected by the Federal Confidentiality of Alcohol and Drug Abuse Patient Records regulations: The Federal rules restrict any use of the information to criminally investigate or prosecute any alcohol or drug abuse patient.[facility] HospitalIn the event this information is protected by the Federal Confidentiality of Alcohol and Drug Abuse Patient Records regulations: The Federal rules restrict any use of the information to criminally investigate or prosecute any alcohol or drug abuse patient.[facility] HospitalIn the event this information is protected by the Federal Confidentiality of Alcohol and Drug Abuse Patient Records regulations: The Federal rules restrict any use of the information to criminally investigate or prosecute any alcohol or drug abuse patient.[facility] HospitalIn the event this information is protected by the Federal Confidentiality of Alcohol and Drug Abuse Patient Records regulations: The Federal rules restrict any use of the information to criminally investigate or prosecute any alcohol or drug abuse patient.[facility] HospitalIn the event this information is protected by the Federal Confidentiality of Alcohol and Drug Abuse Patient Records regulations: The Federal rules restrict any use of the information to criminally investigate or prosecute any alcohol or drug abuse patient.[facility] HospitalIn the event this information is protected by the Federal Confidentiality of Alcohol and Drug Abuse Patient Records regulations: The Federal rules restrict any use of the information to criminally investigate or prosecute any alcohol or drug abuse patient.[facility] Reason for Visit (unrecogniz ed section and [...] 04/02/2023 [employer] Care gaps Reason Comments Early chart picker of rx Reason Onset Date Comments Population Health Navigation Outreach 06/13/2023 [employer] care gaps Reason Onset Date Comments Population Health Navigation Outreach 09/04/2023 [employer] Care Gaps 1.3.2023 Care Teams (unrecognized sec tion and content) Injection Wax Molder Relationship Specialty Start Date End Date Los Davenport MD [address] [place], [place] [id number] PCP - General Family Practice 05/23/15 Los Davenport MD [address] [place] [address] Home Care Physician Family Practice 01/30/21 Lev Valle MD [address] [address] Referring Ent - Otolaryngology 01/30/21 William Alcaraz MD [address] [place] [address] Consulting Ent - Otolaryngology 01/30/21 Carie Galvin RN [address], [place] [address] Manager Packaging Ent - Otolaryngology 01/04/21 Injection Wax Molder Relationship Specialty Start Date End Date Los Davenport MD [address] [place], [place] [id number] PCP - General Family Practice 05/23/15 Los Davenport MD [address] [place] [address] Home Care Physician Family Practice 01/30/21 Lev Valle MD [address] [address] Referring Ent - Otolaryngology 01/30/21 William Alcaraz MD [address] [place] [address] Consulting Ent - Otolaryngology 01/30/21 Carie Galvin, ULYSSES [address] [place] [address] Manager Packaging Ent - Otolaryngology 01/04/21 Injection Wax Molder Relationship Specialty Start Date End Date Los Davenport MD [address] [place] [address] PCP - General Family Practice 05/23/15 Los Davenport MD [address] [place] [address] Home Care Physician Family Practice 01/30/21 Lev Valle MD [address] [address] Referring Ent - Otolaryngology 01/30/21 William Alcaraz MD [address] [place] [address] Consulting Ent - Otolaryngology 01/30/21 Carie Galvin RN [address] [place] [address] Manager Packaging Ent - Otolaryngology 01/04/21 Injection Wax Molder Relationship Specialty Start Date End Date Los Davenport MD [address] [place] [address] PCP - General Family Practice 05/23/15 Los Davenport MD [address] [place] [address] Home Care Physician Family Practice 01/30/21 Lev Valle MD [address] [address] Referring Ent - Otolaryngology 01/30/21 William Alcaraz MD [address] [place] [address] Consulting Ent - Otolaryngology 01/30/21 Carie Galvin RN [address] [place] [address] Manager Packaging Ent - Otolaryngology 01/04/21 Injection Wax Molder Relationship Specialty Start Date End Date Los Davenport MD [address] [place] [address] PCP - General Family Practice 05/23/15 Los Davenport MD [address] [place] [address] Home Care Physician Family Practice 01/30/21 Lev Valle MD [address] [address] Referring Ent - Otolaryngology 01/30/21 William Alcaraz MD [address] [place] [address] Consulting Ent - Otolaryngology 01/30/21 Carie Galvin RN [address] [place] [address] Manager Packaging Ent - Otolaryngology 01/04/21 Injection Wax Molder Relationship Specialty Start Date End Date Los Davenport MD [address] [place] [address] PCP - General Family Practice 05/23/15 Los Davenport MD [address] [place] [address] Home Care Physician Family Practice 01/30/21 Lev Valle MD [address] [id number] Referring Ent - Otolaryngology 01/30/21 William Alcaraz MD [address] [place], [place] [id number] Consulting Ent - Otolaryngology 01/30/21 Carie Galvin RN [address], [place] [address] Manager Packaging Ent - Otolaryngology 01/04/21 Injection Wax Molder Relationship Specialty Start Date End Date Los Davenport MD [address] [place] [address] PCP - General Family Medicine 05/23/15 Los Davenport MD [address] [place] [address] Home Care Provider Family Medicine 01/30/21 Lev Valle MD [address] [address] Referring Ent - Otolaryngology 01/30/21 William Alcaraz MD [address] [place] [address] Consulting Ent - Otolaryngology 01/30/21 Carie Galvin, ULYSSES [address] [place] [address] Manager Packaging Ent - Otolaryngology 01/04/21 Injection Wax Molder Relationship Specialty Start Date End Date Los Davenport MD [address] [place] [address] PCP - General Family Medicine 05/23/15 Los Davenport MD [address] [place] [address] Home Care Provider Family Medicine 01/30/21 Lev Valle MD [address] [id number] Referring Ent - Otolaryngology 01/30/21 William Alcaraz MD [address] [place] [address] Consulting Ent - Otolaryngology 01/30/21 Carie Galvin RN [address] [place] [address] Manager Packaging Ent - Otolaryngology 01/04/21 Injection Wax Molder Relationship Specialty Start Date End Date Los Davenport MD [address] [place] [address] PCP - General Family Medicine 05/23/15 Los Davenport MD [address] [place] [address] Home Care Provider Family Medicine 01/30/21 Lev Valle MD [address] [address] Referring Ent - Otolaryngology 01/30/21 William Alcaraz MD [address] [place] [address] Consulting Ent - Otolaryngology 01/30/21 Carie Galvin, ULYSSES [address] [place] [address] Manager Packaging Ent - Otolaryngology 01/04/21 Injection Wax Molder Relationship Specialty Start Date End Date Los Davenport MD [address] [place] [address] PCP - General Family Medicine 05/23/15 Los Davenport MD [address] [place] [address] Home Care Provider Family Medicine 01/30/21 Lev Valle MD [address] [address] Referring Ent - Otolaryngology 01/30/21 William Alcaraz MD [address] [place] [address] Consulting Ent - Otolaryngology 01/30/21 Carie Galvin, ULYSSES [address] [place] [address] Manager Packaging Ent - Otolaryngology 01/04/21 Injection Wax Molder Relationship Specialty Start Date End Date Los Davenport MD [address] [place] [address] PCP - General Family Medicine 05/23/15 Los Davenport MD [address] [place] [address] Home Care Provider Family Medicine 01/30/21 Lev Valle MD [address] [address] Referring Ent - Otolaryngology 01/30/21 William Alcaraz MD [address] [place] [address] Consulting Ent - Otolaryngology 01/30/21 Carie Galvin RN [address] [place] [address] Manager Packaging Ent - Otolaryngology 01/04/21 Injection Wax Molder Relationship Specialty Start Date End Date Los Davenport MD [address] [place] [address] PCP - General Family Medicine 05/23/15 Los Davenport MD [address] [place] [address] Home Care Provider Family Medicine 01/30/21 Lev Valle MD [address] [address] Referring Ent - Otolaryngology 01/30/21 William Alcaraz MD [address] [place] [address] Consulting Ent - Otolaryngology 01/30/21 Carie Galvin RN [address] [place] [address] Manager Packaging Ent - Otolaryngology 01/04/21 Injection Wax Molder Relationship Specialty Start Date End Date Los Davenport MD [address] [place] [address] PCP - General Family Medicine 05/23/15 Los Davenport MD [facility] [place] [address] Home Care Provider Family Medicine 01/30/21 Lev Valle MD [address] [address] Referring Ent - Otolaryngology 01/30/21 William Alcaraz MD [address] [place] [address] Consulting Ent - Otolaryngology 01/30/21 Carie Galvin, ULYSSES [address] [place] [address] Manager Packaging Ent - Otolaryngology 01/04/21 Injection Wax Molder Relationship Specialty Start Date End Date Los Davenport MD [address] [place], [place] [address] PCP - General Family Medicine 05/23/15 Los Davenport MD [address] [place] [address] Home Care Provider Family Medicine 01/30/21 eLv Valle MD [address] [facility] [address] [address] Referring Ent - Otolaryngology 01/30/21 William Alcaraz MD [address] [place] [address] Consulting Ent - Otolaryngology 01/30/21 Carie Gavlin, ULYSSES [address] [place] [address] Manager Packaging Ent - Otolaryngology 01/04/21 Injection Wax Molder Relationship Specialty Start Date End Date Los Davenport MD [address] [place] [address] PCP - General Family Medicine 05/23/15 Los Davenport MD [address] [place] [address] Home Care Provider Family Medicine 01/30/21 Lev Valle MD [address] [address] Referring Ent - Otolaryngology 01/30/21 William Alcaraz MD [address] [place] [address] Consulting Ent - Otolaryngology 01/30/21 Carie Galvin, ULYSSES [address] [place] [address] Manager Packaging Ent - Otolaryngology 01/04/21 Injection Wax Molder Relationship Specialty Start Date End Date Los Davenport MD [address] [place] [address] PCP - General Family Medicine 05/23/15 Los Davenport MD [address] [place] [address] Home Care Provider Family Medicine 01/30/21 Lev Valle MD [address] [address] Referring Ent - Otolaryngology 01/30/21 William Alcaraz MD [address] [place] [address] Consulting Ent - Otolaryngology 01/30/21 Carie Galvin, ULYSSES [address] [place] [address] Manager Packaging Ent - Otolaryngology 01/04/21 Injection Wax Molder Relationship Specialty Start Date End Date Los Davenport MD [address] [place], [place] [address] PCP - General Family Medicine 05/23/15 Los Davenport MD [address] [place], [place] [address] Home Care Provider Family Medicine 01/30/21 Lev Valle MD [address] [place] [id number] Referring Ent - Otolaryngology 01/30/21 William Alcaraz MD [address] [place], [place] [address] Consulting Ent - Otolaryngology 01/30/21 Carie Galvin RN [address], [place] [address] Manager Packaging Ent - Otolaryngology 01/04/21 Injection Wax Molder Relationship Specialty Start Date End Date Los Davenport MD [address] [place], [place] [id number] PCP - General Family Medicine 05/23/15 Los Davenport MD [address] [place], [place] 29[address] Home Care Provider Family Medicine 01/30/21 Lev Valle MD [address] [phone] Referring Ent - Otolaryngology 01/30/21 William Alcaraz MD [address] [place], [place] [address] Consulting Ent - Otolaryngology 01/30/21 Carie Galvin, ULYSSES [address] [place] [address] Manager Packaging Ent - Otolaryngology 01/04/21 Injection Wax Molder Relationship Specialty Start Date End Date Los Davenport MD [address] [place], [place] [address] PCP - General Family Medicine 05/23/15 Los Davenport MD [address] [place], [place] 6[address] Home Care Provider Family Medicine 01/30/21 Lev Valle MD [address] [place] [address] Referring Ent - Otolaryngology 01/30/21 William Alcaraz MD [address] [place] [address] Consulting Ent - Otolaryngology 01/30/21 Carie Galvin RN [address] [place] [address] Manager Packaging Ent - Otolaryngology 01/04/21 Injection Wax Molder Relationship Specialty Start Date End Date Los Davenport MD [address] [place] [address] PCP - General Family Medicine 05/23/15 Los Davenport MD [address] [place] [address] Home Care Provider Family Medicine 01/30/21 Lev Valle MD [address] [address] Referring Ent - Otolaryngology 01/30/21 William Alcaraz MD [address] [place] [address] Consulting Ent - Otolaryngology 01/30/21 Carie Galvin, RN [address] [place] [address] Manager Packaging Ent - Otolaryngology 01/04/21 Injection Wax Molder Relationship Specialty Start Date End Date Los Davenport MD [address] [place], [place] [address] PCP - General Family Medicine 05/23/15 Los Davenport MD [address] [place], [place] [address] Home Care Provider Family Medicine 01/30/21 Lev Valle MD [address] [address] Referring Ent - Otolaryngology 01/30/21 William Alcaraz MD [address] [place] [address] Consulting Ent - Otolaryngology 01/30/21 Carie Galvin, ULYSSES [address] [place] [address] Manager Packaging Ent - Otolaryngology 01/04/21 Injection Wax Molder Relationship Specialty Start Date End Date Los Davenport MD [address] [place], [place] [address] PCP - General Family Medicine 05/23/15 Los Davenport MD [address] [place] [address] Home Care Provider Family Medicine 01/30/21 Lev Valle MD [address] [place] [address] Referring Ent - Otolaryngology 01/30/21 William Alcaraz MD [address] [place] [address] Consulting Ent - Otolaryngology 01/30/21 Carie Galvin RN [address] [place], [place] [id number] [employer] Ent - Otolaryngology 01/04/21 FOR RECORDS PERTAINING [...] BE BASED ON THE PRIMARY CLINICAL RECORDS. [employer] provides no warranty or guarantee of the accuracy or completeness of information in this document.
== END 2023-09-09 21:49 | disposition home or self-care (01) ==
PROVIDERS: Emergency Provider Student in an Organized Health Care Education/Training Program; PCP Family Medicine; Visit Provider Student in an Organized Health Care Education/Training Program
DX: R55 Syncope and collapse (principal); E11.9 Type 2 diabetes mellitus without complications; E86.0 Dehydration; B34.9 Viral infection, unspecified; Z87.891 Personal history of nicotine dependence; I10 Essential (primary) hypertension; R51.9 Headache, unspecified
CPT/HCPCS: 71045; 80048; 83880; 84484; 85025; 93005; 96361; 96374; 99285; J7030; A4216